=== PATIENT | female | born 1970 | race Caucasian/White ===

== ENCOUNTER 2016-11-11 12:05 | Emergency (ER) | payer BC ==
[~2016-11-11] VITALS: Ht 175.3 cm; Wt 142.8 kg
[~2016-11-11 12:05] MED LIST: ONDA4TAB7 SL
[2016-11-11 12:15] VITALS: TEMP 37; Ht 175.3 cm; Wt 142.8 kg
[2016-11-11] MEDS ORDERED: TRAM-10 PO (12:35)
[2016-11-11] MEDS ORDERED: PROCHLORPERAZINE 5 MG/ML 2 ML VIAL IV STA (13:20)
[2016-11-11] MEDS ORDERED: SODIUM CHLORIDE 0.9% 1000ML 1,000 ML IV STA (13:20)
[2016-11-11] MEDS ORDERED: KETOROLAC TROMETHAMINE 30 MG/ML VIAL IV STA (13:20)
[2016-11-11] MEDS ORDERED: DiphenhydrAMINE HCL 50 MG/ML VIAL IV STA (13:20)
[2016-11-11 13:38] LABS: BASO % 0.2 %; BASO ABS # 0.02 K/uL (0-0.2); EOS % 1.6 %; HEMATOCRIT 35.6 % (37-47); IG% 0.5 %; LYMPH % 19.5 %; LYMPH ABS # 2.53 K/uL (1.2-3.4); MEAN CELL VOLUME 69.5 fL (80-100); MEAN CORPUSCULAR HEMOGLOBIN 21.7 pg (25-34); MEAN CORPUSCULAR HGB CONC 31.2 g/dl (32-36); MEAN PLATELET VOLUME 11.1 fL (7.4-10.4); MONO % 4.2 %; PLATELET COUNT 494 K/uL (130-400); RED BLOOD COUNT 5.12 M/uL (4.2-5.4); WHITE BLOOD COUNT 12.97 K/uL (4.8-10.8)
[2016-11-11 13:47] LABS: BUN/CREATININE RATIO 13.3 (10-20); CREATININE 0.6 mg/dl (0.60-1.20); POTASSIUM 4.1 mmol/L (3.5-5.1)
[2016-11-11 14:03] LABS: ANISOCYTOSIS PRESENT; COMPLETE YES; HYPOCHROMIA PRESENT; MICROCYTOSIS PRESENT
--- NOTE | 2016-11-11 14:09 | DIAGNOSTIC IMAGING REPORT ---
HEAD WITHOUT CONTRAST (CT) CLINICAL HISTORY: 46 years-old Female with MCARTHUR. Acute headache without reported trauma. TECHNIQUE: Multiple axial CT images of the head were obtained without contrast. A dose lowering technique was utilized adhering to the principles of ALARA. CT DOSE: 788.63 mGycm COMPARISON: Brain MRI 06/21/2014. FINDINGS: No acute intracranial hemorrhage, midline shift, mass, large territorial ischemia or abnormal extra-axial collection. The calvarium is intact. The paranasal sinuses, mastoid air cells, and middle ear cavities are clear. IMPRESSION: No acute intracranial abnormality. The above report was generated using voice recognition software. It may contain grammatical, syntax or spelling errors. Electronically signed by: Vargas Cantrell M.D. 11/11/2016 2:08 PM Dictated Date/Time: 11/11/2016 2:06 PM
[2016-11-11] MEDS ORDERED: LORAZEPAM 0.5 MG TAB SL STA (15:26)
[2016-11-11] MEDS ORDERED: PRED50TA PO (16:41)
[2016-11-11 17:12] VITALS: BP 158/82; PULSE 78; O2SAT 98
--- NOTE | 2016-11-11 19:15 | EMERGENCY ROOM VISIT NOTE ---
History Report prepared by Yuly: Johnie Ziegler Under the Supervision of: Dr. Krishna Brewster D.O. First contact with patient: 13:07 Chief Complaint: HEADACHE Stated Complaint: TYPICAL MIGRAINE - REF BY DOCTOR History of Present Illness The patient is a 46 year old female with a history of migraines who presents to the Emergency Room with complaints of a persistent migraine that started 4 days ago. She says that she was visiting family when the pain came on, and it gradually got worse. She states that she has had migraines since she was a teenager, but this is an atypical migraine with odd symptoms that she doesn't normally have, including hearing abnormal noises, and numbness in her fingers bilaterally, feet bilaterally, and knees bilaterally. The patient notes that the tingling is mostly in her fingers, and includes her thumbs and does include the entire fingers circumferentially. She says that her numbness is on the front side of her knee and on the medial aspect of her foot. She states that it feels like "Novocaine". The patient adds that she has been having numbness in her cheeks and lips intermittently, and nothing makes it better or worse. She says that all the numbness started 2 days ago. She adds that she has been forgetting certain words, and has to think harder than she normally does, which is odd for her. The patient says that she has low back pain and neck pain, but that is typical with her migraines. She notes that she saw her primary care physician earlier today, and was sent here. She denies any weakness, fevers, shortness of breath, chest pain, nausea, vomiting, diarrhea, or urinary symptoms. Source of History: patient, family Onset: 4 days ago Position: head Symptom Intensity: not like typical migraine Timing: other (persistent) Associated Symptoms: + neck pain, + back pain (low), + numbness (in face, hands, knees, feet), No fevers, No chest pain, No SOB, No nausea, No vomiting, No diarrhea, No urinary symptoms, No weakness Note: Associated symptoms: Forgetting certain words, has to think harder than normally. Review of Systems See HPI for pertinent positives & negatives. A total of 10 systems reviewed and were otherwise negative. Past Medical & Surgical Medical Problems: (1) Asthma (2) Bronchitis (3) Migraines Family History Cancer Diabetes mellitus FH: cancer FH: gallbladder disease Heart disease Hypertension Social History Smoking Status: Former Smoker Alcohol Use: occasionally Marital Status: Housing Status: lives with family Occupation Status: unemployed Current/Historical Medications Scheduled Prednisone (Prednisone), 50 MG PO DAILY Scheduled PRN Tramadol (Ultram), 50 MG PO DAILY PRN for Pain Allergies Coded Allergies: Aspirin (Verified Allergy, Mild, TAKES MOTRIN AT HOME, 03/22/09) Adhesives (Verified Allergy, Unknown, BAND-AID, 02/05/06) Guaifenesin (Verified Allergy, Unknown, 03/22/09) Guanfacine (Verified Allergy, Unknown, Unknown., 09/09/12) Latex (Verified Allergy, Unknown, Hives., 09/09/12) Phenylephrine (Verified Allergy, Unknown, 03/22/09) Phenylpropanolamine (Verified Allergy, Unknown, 03/22/09) Vitamin A (Verified Allergy, Unknown, 03/22/09) Physical Exam Vital Signs Date Time Temp Pulse Resp B/P (MAP) Pulse Ox O2 Delivery O2 Flow Rate FiO2 11/11/16 17:12 78 18 158/82 98 11/11/16 16:09 77 18 165/84 98 Room Air 11/11/16 14:29 68 18 151/87 98 Room Air 11/11/16 13:03 77 11/11/16 12:15 37.0 82 16 182/84 98 Room Air Physical Exam GENERAL: obese, sitting up in bed, sunglasses in place, no acute distress, nontoxic EYE EXAM: normal conjunctiva, PERRL and EOM's intact OROPHARYNX: no exudate, no erythema, lips, buccal mucosa, and tongue normal and mucous membranes are moist HEAD: Acute reproducible tenderness over frontal sinuses and base of occiput. No nuchal rigidity NECK: supple, no nuchal rigidity, no adenopathy, non-tender LUNGS: Clear to auscultation. Normal chest wall mechanics HEART: no murmurs, S1 normal and S2 normal ABDOMEN: abdomen soft, non-tender, normo-active bowel sounds, no masses, no rebound or guarding. BACK: Back is symmetrical on inspection and there is no deformity, no midline tenderness, no CVA tenderness. SKIN: no rashes and no bruising UPPER EXTREMITIES: upper extremities are grossly normal. LOWER EXTREMITIES: No pitting edema. NEURO EXAM: Normal sensorium, cranial nerves II-XII intact, normal speech, no weakness of arms, no weakness of legs. No drift. Finger to nose intact. Gross sensation intact. Rapid alternating movements of the upper extremities intact. Medical Decision & Procedures ER Provider Diagnostic Interpretation: CT:Per my review, radiologist interpretation. HEAD WITHOUT CONTRAST (CT) CLINICAL HISTORY: 46 years-old Female with MCARTHUR. Acute headache without reported trauma. TECHNIQUE: Multiple axial CT images of the head were obtained without contrast. A dose lowering technique was utilized adhering to the principles of ALARA. CT DOSE: 788.63 mGycm COMPARISON: Brain MRI 06/21/2014. FINDINGS: No acute intracranial hemorrhage, midline shift, mass, large territorial ischemia or abnormal extra-axial collection. The calvarium is intact. The paranasal sinuses, mastoid air cells, and middle ear cavities are clear. IMPRESSION: No acute intracranial abnormality. The above report was generated using voice recognition software. It may contain grammatical, syntax or spelling errors. Electronically signed by: Vargas Cantrell M.D. 11/11/2016 2:08 PM Dictated Date/Time: 11/11/2016 2:06 PM Laboratory Results 11/11/16 12:55 Red Blood Count 5.12, Mean Corpuscular Volume 69.5, Mean Corpuscular Hemoglobin 21.7, Mean Corpuscular Hemoglobin Concent 31.2, Mean Platelet Volume 11.1, Neutrophils (%) (Auto) 74.0, Lymphocytes (%) (Auto) 19.5, Monocytes (%) (Auto) 4.2, Eosinophils (%) (Auto) 1.6, Basophils (%) (Auto) 0.2, Neutrophils # (Auto) 9.60, Lymphocytes # (Auto) 2.53, Monocytes # (Auto) 0.55, Eosinophils # (Auto) 0.21, Basophils # (Auto) 0.02 11/11/16 12:55 Test 11/11/16 12:55 White Blood Count 12.97 K/uL (4.8-10.8) Red Blood Count 5.12 M/uL (4.2-5.4) Hemoglobin 11.1 g/dL (12.0-16.0) Hematocrit 35.6 % (37-47) Mean Corpuscular Volume 69.5 fL (80-100) Mean Corpuscular Hemoglobin 21.7 pg (25-34) Mean Corpuscular Hemoglobin Concent 31.2 g/dl (32-36) Platelet Count 494 K/uL (130-400) Mean Platelet Volume 11.1 fL (7.4-10.4) Neutrophils (%) (Auto) 74.0 % Lymphocytes (%) (Auto) 19.5 % Monocytes (%) (Auto) 4.2 % Eosinophils (%) (Auto) 1.6 % Basophils (%) (Auto) 0.2 % Neutrophils # (Auto) 9.60 K/uL (1.4-6.5) Lymphocytes # (Auto) 2.53 K/uL (1.2-3.4) Monocytes # (Auto) 0.55 K/uL (0.11-0.59) Eosinophils # (Auto) 0.21 K/uL (0-0.5) Basophils # (Auto) 0.02 K/uL (0-0.2) RDW Standard Deviation 42.3 fL (36.4-46.3) RDW Coefficient of Variation 16.9 % (11.5-14.5) Immature Granulocyte % (Auto) 0.5 % Immature Granulocyte # (Auto) 0.06 K/uL (0.00-0.02) Hypochromasia PRESENT Anisocytosis PRESENT Microcytosis PRESENT Anion Gap 9.0 mmol/L (3-11) Est Creatinine Clear Calc Drug Dose 181.1 ml/min Estimated GFR () 127.6 Estimated GFR (Non- 110.1 BUN/Creatinine Ratio 13.3 (10-20) Calcium Level 9.0 mg/dl (8.5-10.1) Laboratory results per my review. Medications Administered Medications (Trade) Dose Ordered Sig/Yusef Route Start Time Stop Time Status Last Admin Dose Admin Sodium Chloride 1,000 ml @ 999 mls/hr Q1H1M STAT IV 11/11/16 13:20 11/11/16 14:20 DC 11/11/16 13:39 999 MLS/HR Ketorolac Tromethamine (Toradol Inj) 30 mg NOW STAT IV 11/11/16 13:20 11/11/16 13:22 DC 11/11/16 13:40 30 MG Diphenhydramine HCl (Benadryl Inj) 50 mg NOW STAT IV 11/11/16 13:20 11/11/16 13:22 DC 11/11/16 13:39 50 MG Prochlorperazine Edisylate (Compazine Inj) 10 mg NOW STAT IV 11/11/16 13:20 11/11/16 13:22 DC 11/11/16 13:39 10 MG Lorazepam (Ativan Tab) 0.5 mg NOW STAT SL 11/11/16 15:26 11/11/16 15:27 DC 11/11/16 15:36 0.5 MG ECG Indication: other (headache, numbness) Rate (beats per minute): 80 Rhythm: sinus rhythm Findings: no ectopy, other (normal axis) ED Course ED COURSE: Vital signs were reviewed and showed hypertensive vitals. The patients medical record was reviewed The above diagnostic studies were performed and reviewed. ED treatments and interventions as stated above. 1310: The patient was evaluated in room C11B. A complete history and physical examination was performed. 1320: Ordered Compazine Inj 10 mg IV, Benadryl Inj 50 mg IV, Toradol Inj 30 mg IV, NSS 1000 ml @ 999 mls/hr IV. 1526: Ordered Ativan Tab 0.5 mg SL. 1537: I reevaluated the patient and she is completely back to baseline. Her headache and paresthesias are gone. 1620: I reevaluated the patient and she refuses an MRI. 1628: I discussed the patient with Dr. Hare - [facility] neurology - she agrees with MRI but since the patient will not tolerate it, she recommended steroids and following-up as an outpatient. 1643: Upon reevaluation, the patient is resting.I discussed my findings with the patient and she understands and agrees with the treatment plan. Based on the patients age, coexisting illnesses, exam and lab findings the decision to treat as an outpatient was made. The patient remained stable while under my care. The patient appeared well at the time of discharge. Medical Decision Differential Diagnosis includes but is not limited to headache, tension headache , cluster headache, migraine, subarachnoid hemorrhage, meningitis, mass, central venous thrombus, concussion, trauma and epidural/subdural hemorrhage. Patient is a 46-year-old female with past medical history of migraines who presents to ER for headache which has been present for the past 5 days. She notes came on gradually and progressively worsened; not suggesting SAH. Vitals are unremarkable with the exception of mild hypertension. Afebrile. No signs meningitis or encephalitis. No nuchal rigidity. Patient does not take control. No clotting risk factors to suggest CVT. CT head was performed. Attempted MRI the patient declined. Patient was given Ativan without success. She was given Benadryl, Toradol and Compazine for her headache and she had complete resolution of all of her symptoms. She is completely neurologically intact initially on exam. I discussed the findings with neurology they recommended steroids and following up as an outpatient. I do not believe this to be a stroke as her symptoms are bilateral and the paresthesias include her bilateral kneecaps and the bilateral medial aspect of her feet. I do not believe that this can be explained by CVA. Favor MS is very unlikely. Headache is reproducible on palpation of her frontal sinuses and posterior occiput. Discussed with patient. Not to drive for the remainder of the night. Discussed with Pt concerning signs and symptoms to watch out for. Pt was instructed to follow up with their PCP and discussed with the patient their option to return to the ED at anytime for persistent or worsening symptoms. The appropriate anticipatory guidance and out-patient management, including indications for return to the emergency department, were explained at length to the patient and understood. Medication Reconcilliation Current Medication List: was personally reviewed by me Blood Pressure Screening Patient's blood pressure: Elevated blood pressure Blood pressure disposition: Elevated BP felt to be situational Consults Time Called: 1628 Consulting Physician: Dr. Payam Strong neurology Returned Call: [phone] I discussed the patient with Dr. Payam Strong neurology - she agrees with MRI but since the patient will not tolerate it, she recommended steroids and following-up as an outpatient. Impression Primary Impression: Headache Additional Impression: Facial paresthesia Scribe Attestation The scribe's documentation has been prepared under my direction and personally reviewed by me in its entirety. I confirm that the note above accurately reflects all work, treatment, procedures, and medical decision making performed by me. Departure Information Dispostion Home / Self-Care Prescriptions Prednisone (PREDNISONE) 50 Mg Tab 50 MG PO DAILY for 4 Days, TAB Prov: Krishna Brewster, 11/11/16 Referrals Desiree Beasley D.OAri (PCP) Patient Instructions Headache Pain, My [facility] Additional Instructions Please follow up with your primary care doctor or if you are a student, [facility] with in the next 24 hours. Any worsening of your symptoms, please return to the ED immediately. This includes any fevers greater than 100.4, worsening pain, chest pain, shortness breath, persistent nausea, vomiting, unable to eat or drink, or any other concerning signs or symptoms from your standpoint. You were given medications during this visit that will inhibit your ability to drive, operate machinery and work. Please do NOT drive, operate machinery, drink alcohol or work for the next 12hrs. You were found to have a blood pressure greater than 120 systolic over 90 diastolic. Due to the new Medicare guidelines, we are now recommending that you follow up with your primary care doctor in regards to this elevated blood pressure. Problem Qualifiers Primary Impression: Headache Headache type: unspecified Headache chronicity pattern: acute headache Intractability: not intractable Qualified Codes: R51 - Headache
== END 2016-11-11 17:13 | disposition home or self-care (01) ==
LOC: C.EDB 12:08 → C.EDC 17:13
DX: R51 Headache (principal); R20.9 Unspecified disturbances of skin sensation; J45.909 Unspecified asthma, uncomplicated; Z80.9 Family history of malignant neoplasm, unspecified; Z83.3 Family history of diabetes mellitus; Z83.79 Family history of other diseases of the digestive system; Z82.49 Family history of ischemic heart disease and other diseases of the circulatory system; Z87.891 Personal history of nicotine dependence

== ENCOUNTER 2019-03-19 19:53 | Observation (INO) ==
--- OUTSIDE RECORDS SUMMARY | 2019-03-19 19:56 | External Medical Summary | Continuity of Care Document ---
:1970 Author Name Gemini Odell Address Unavailable Unavailable , Care Team Providers Name Role Phone Purvi Redding M.D. Unavailable [email or web address] [email or web address], UNKNOWN Unavailable Unavailable Problems Active medical history not documented Allergies and Adverse Reactions Allergy history not documented Medications Medications not documented Procedures Procedures not documented Immunizations Immunizations not documented Plan of Treatment Planned Observations Planned Goals not documented Results No Known Results Results not documented
--- OUTSIDE RECORDS SUMMARY | 2019-03-19 19:56 | External Medical Summary | Continuity of Care Document ---
:1970 Author Name Gemini Odell Address Unavailable Unavailable , Care Team Providers Name Role Phone Purvi Redding M.D. Unavailable [email or web address] PCP, UNKNOWN Unavailable Unavailable Problems Active medical history not documented Allergies and Adverse Reactions Allergy history not documented Medications Medications not documented Procedures Procedures not documented Immunizations Immunizations not documented Plan of Treatment Planned Observations Planned Goals not documented Results No Known Results Results not documented
--- NOTE | 2019-03-19 20:54 | XRay Report ---
XR chest 1V portable HISTORY: Dyspnea COMPARISON: Chest CTA 03/27/2007. FINDINGS: The heart is mildly enlarged. No pleural effusions. No pneumothorax. Small linear density w ithin the periphery the left midlung zone favor scarring or atelectasis. Otherwise, lungs are clear. IMPRESSION: Mild cardiomegaly. ACT 112: Negative or not required by law. Electronically signed by: Jordan Ramírez M.D. 03/19/2019 8:53 PM
[2019-03-19 20:57] LABS: Basophils # (auto) 0.03 K/uL (0-0.2); Basophils % (auto) 0.2 %; Eosinophils # (auto) 0.29 K/uL (0-0.5); Hematocrit (blood only) 39.6 % (37-47); Hemoglobin 13.3 g/dL (12.0-16.0); Immature Granulocytes # (auto) 0.04 K/uL (0.00-0.02); Immature Granulocytes % (auto) 0.3 %; Lymphocytes # (auto) 3.51 K/uL (1.2-3.4); Lymphocytes % (auto) 23.8 %; Mean Corpuscular Hemoglobin 27.4 pg (25-34); Mean Corpuscular Hgb Conc 33.6 g/dL (32-36); Mean Corpuscular Volume 81.6 fL (80-100); Mean Platelet Volume 11.6 fL (7.4-10.4); Monocytes # (auto) 0.81 K/uL (0.11-0.59); Monocytes % (auto) 5.5 %; Neutrophils # (auto) 10.04 K/uL (1.4-6.5); Neutrophils % (auto) 68.2 %; Platelet Count 430 K/uL (130-400); RDW Coefficient of Variation 14.8 % (11.5-14.5); RDW Standard Deviation 43.8 fL (36.4-46.3); Red Blood Count 4.85 M/uL (4.2-5.4); White Blood Count 14.72 K/uL (4.8-10.8)
[2019-03-19 21:08] LABS: D Dimer 500 ug/L FEU (0-500); Partial Thromboplastin Time 27.6 Seconds (21.0-31.0); Prothrombin Time 10.3 Seconds (9.0-12.0)
[2019-03-19 21:24] LABS: Alanine Aminotransferase 18 U/L (12-78); Albumin Level 3.6 gm/dl (3.4-5.0); Aspartate Aminotransferase 8 U/L (15-37); BUN Creatinine Ratio 22.6 (10-20); Blood Urea Nitrogen 14 mg/dl (7-18); Calcium 9.3 mg/dl (8.5-10.1); Carbon Dioxide 28 mmol/L (21-32); Chloride 103 mmol/L (98-107); Creatinine Clr Calc Pharmacy 184.2 ml/min; Est GFR (African American) 125.1; Glucose 108 mg/dl (70-99); Magnesium 1.9 mg/dl (1.8-2.4); Sodium 138 mmol/L (136-145)
[2019-03-19 21:28] LABS: Albumin Globulin Ratio 0.8 (0.9-2); Alkaline Phosphatase 80 U/L (45-117); Bilirubin,Total 0.2 mg/dl (0.2-1); Globulin 4.6 gm/dl (2.5-4.0); Total Protein 8.2 gm/dl (6.4-8.2); Troponin I < 0.015 ng/ml (0-0.045)
[2019-03-19] MEDS ORDERED: OPTIRAY 320 125ml IV PRN (21:57)
--- NOTE | 2019-03-19 22:09 | CT Scan Report ---
CHEST CTA for PULMONARY ARTERIES CT DOSE: 864.07 mGy.cm HISTORY: Dyspnea/left chest pain eval for PE TECHNIQUE: Multiaxial CT images of the chest were performed following the intravenous administration of contrast to evaluate the pulmonary arteries. Maximal intensity projection images were also obtaine d. A dose lowering technique was utilized adhering to the principles of ALARA. COMPARISON STUDY: Chest CTA 03/27/2007. FINDINGS: There is a normal caliber thoracic aorta with no evidence for dissection. There is no evide nce for pulmonary embolus. No pleural effusions. No pneumothorax. The liver and spleen are unremarkab le. No mediastinal or hilar lymphadenopathy. The central airways are patent. Linear densities within the lingula and right middle lobe consistent with subsegmental atelectasis. Otherwise, lungs are luigi r. IMPRESSION: No evidence for pulmonary embolus. ACT 112: Negative or not required by law. Electronically signed by: Jordan Ramírez M.D. 03/19/2019 10:08 PM
[2019-03-19] MEDS ORDERED: ALBUT/IPRATROP 3MG/0.5MG NEB 3 ML VIAL NEB STA (22:32)
[2019-03-19 22:47] LABS: Appearance Urine Clear (Clear); Bilirubin Urine Negative (Negative); Blood Urine Negative (Negative); Color Urine Yellow; Glucose Urine UA Negative (Negative); Ketones Urine Negative (Negative); Leukocyte Esterase Urine Negative (Negative); Nitrite Urine Negative (Negative); Protein Urine Negative (Negative); Specific Gravity Urine 1.022 (1.000-1.030); Urobilinogen Urine Negative (Negative)
[2019-03-19] MEDS ORDERED: LOSARTAN POTASSIUM 25 MG TAB PO STA (23:16)
--- NOTE | 2019-03-19 23:16 | History & Physical Report ---
Date of Service March 19, 2019 Assessment & Plan (1) Left-sided chest pain: Uncontrolled BP vs intra-abdominal given LUQ tenderness Rule out ACS mood disorder, at baseline prediabetes, outpatient hemoglobin A1c of 6.18 February 2019 chronic iron deficiency anemia related to menorrhagia as per records, hemoglobin currently within normal limits ROGE as per records. Not on CPAP as per patient preference Past tobacco abuse OBS PCU CT abdomen pelvis Follow troponin Titrate home Losartan Cardiology consult if CT abdomen pelvis negative for pathology that may explain chest pain Aspirin for CAD prevention until ACS ruled out DVT prophylaxis. Lovenox subcu if no bleeding on CT Full code History of Present Illness Chief Complaint: Chest pain Primary Care Provider: Matilde Mao, History obtained from patient, family, and records. Medical history significant for hypertension, mood disorder, prediabetes, chronic iron deficiency anemia related to menorrhagia as per records, ROGE as per records, past tobacco abuse. Patient was having [employer] meeting today when she noted left-sided lower chest ("at the diaphragm level" as per patient) going to her left arm with shortness of breath. Different from reflux as per patient. Has had episodes in the past related to her being anemic from her heavy menstrual bleeding. Menstrual bleeding actually less all be extended since IUD placement. No cough symptoms. No relief with breathing treatment given at the ER. SBP 150-190s at the ER. Patient does not check blood pressure at home. Patient compliant with home medications. Denies dietary indiscretion. Denies unusual stress. Denies OTC NSAID intake. History of ROGE, patient not interested in CPAP as of outpatient 2012 Sleep Medicine notes. Medical History as above TTE 2019 EF 55 to 59%, no significant valvular disease Surgical History : Breast reduction, gynecologic procedures Family History : Heart disease, diabetes, breast cancer, asthma Personal/Social history : Past tobacco abuse, occasional EtOH intake, homemaker Allergies Allergy/AdvReac Type Severity Reaction Status Date / Time guaifenesin [From Entex LA] Allergy Severe Anaphylaxis Verified 03/19/19 21:04 phenylephrine [From Entex LA] Allergy Severe Anaphylaxis Verified 03/19/19 21:04 phenylpropanolamine Allergy Severe Anaphylaxis Verified 03/19/19 21:04 [From Entex LA] latex Allergy Intermediate Hives. Verified 03/19/19 21:04 adhesive Allergy Mild BAND-AID-HI Verified 03/19/19 21:04 VES aspirin Allergy Mild TAKES Verified 03/19/19 21:04 MOTRIN AT HOME Home Medications Home Medications Medication Instructions Recorded Confirmed Type albuterol sulfate 2 puff INHALATION DIRECTED PRN 03/19/19 03/19/19 History escitalopram oxalate 20 mg PO DAILY 03/19/19 03/19/19 History losartan 25 mg PO DAILY 03/19/19 03/19/19 History meloxicam 0 mg PO DAILY 03/19/19 03/19/19 History Past Med/Surg History Medical History Asthma (Resolved) Facial paresthesia (Acute) Headache (Acute) Migraines (Chronic) Social History Preferred Language: Swiss Communication Ability: Effective 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: No Beliefs That Will Affect Care: None Current Living Situation: Family Other Information That Helps Us Care for You: No Feels Safe at Home: Yes Safety Concerns: Feels Safe At This Time Smoking Status: Never smoker Do You Dip or Chew Tobacco: No ; Second Hand Exposure: No ; Tobacco Cessation Education Requested by Patient: No Hx Alcohol Use: No Hx Substance Use: No Review of Systems Review of Systems: As per HPI, all 10 systems reviewed, all other ROS negative Physical Exam Physical Exam: GENERAL: Comfortable, slightly anxious, obese, looks older than stated age, no respiratory distress SKIN: Normal color, warm HEENT: Bespectacled, [place] palpebral conjunctivae, no ptosis, dry buccal mucosa NECK : Supple, short neck, no tenderness CHEST : Decreased breath sounds , no tenderness HEART : RRR, no obvious murmurs ABDOMEN: Some distention, left upper quadrant tenderness EXTREMITIES : Minimal LE swelling, no LE tenderness, no other conspicuous deformities noted NEUROLOGIC : Coherent, no facial asymmetry, no other gross focality Results & Data Vital Signs (Past 12 Hours) Vital Signs Temp Pulse Pulse Resp BP Pulse Ox 03/19/19 22:45 78 16 99 03/19/19 21:30 76 18 98 03/19/19 21:17 78 30 H 97 03/19/19 21:01 73 24 97 03/19/19 19:57 36.3 C L 80 24 155/86 H 98 Laboratory Results Laboratory Results WBC 14.72 K/uL (4.8-10.8) H 03/19/19 20:45 RBC 4.85 M/uL (4.2-5.4) 03/19/19 20:45 Hgb 13.3 g/dL (12.0-16.0) 03/19/19 20:45 Hct 39.6 % (37-47) 03/19/19 20:45 MCV 81.6 fL (80-100) 03/19/19 20:45 MCH 27.4 pg (25-34) 03/19/19 20:45 MCHC 33.6 g/dL (32-36) 03/19/19 20:45 RDW Std Deviation 43.8 fL (36.4-46.3) 03/19/19 20:45 RDW Coeff of Nitin 14.8 % (11.5-14.5) H 03/19/19 20:45 Plt Count 430 K/uL (130-400) H 03/19/19 20:45 MPV 11.6 fL (7.4-10.4) H 03/19/19 20:45 Immature Gran % (Auto) 0.3 % 03/19/19 20:45 Neut % (Auto) 68.2 % 03/19/19 20:45 Lymph % (Auto) 23.8 % 03/19/19 20:45 [place] % (Auto) 5.5 % 03/19/19 20:45 Eos % (Auto) 2.0 % 03/19/19 20:45 Baso % (Auto) 0.2 % 03/19/19 20:45 Immature Gran # (Auto) 0.04 K/uL (0.00-0.02) H 03/19/19 20:45 Neut # (Auto) 10.04 K/uL (1.4-6.5) H 03/19/19 20:45 Lymph # (Auto) 3.51 K/uL (1.2-3.4) H 03/19/19 20:45 [place] # (Auto) 0.81 K/uL (0.11-0.59) H 03/19/19 20:45 Eos # (Auto) 0.29 K/uL (0-0.5) 03/19/19 20:45 Baso # (Auto) 0.03 K/uL (0-0.2) 03/19/19 20:45 PT 10.3 Seconds (9.0-12.0) 03/19/19 20:45 INR 1.0 (0.9-1.1) 03/19/19 20:45 APTT 27.6 Seconds (21.0-31.0) 03/19/19 20:45 PTT Ratio 1.0 03/19/19 20:45 D-Dimer 500 ug/L FEU (0-500) 03/19/19 20:45 Sodium 138 mmol/L (136-145) 03/19/19 20:45 Potassium 4.0 mmol/L (3.5-5.1) 03/19/19 20:45 Chloride 103 mmol/L (98-107) 03/19/19 20:45 Carbon Dioxide 28 mmol/L (21-32) 03/19/19 20:45 Anion Gap 7.0 (3-11) 03/19/19 20:45 BUN 14 mg/dl (7-18) 03/19/19 20:45 Creatinine 0.61 mg/dl (0.6-1.2) 03/19/19 20:45 Est Cr Clr Drug Dosing 184.2 ml/min 03/19/19 20:45 Est GFR ( Amer) 125.1 03/19/19 20:45 Est GFR (Non-Af Amer) 108.0 03/19/19 20:45 BUN/Creatinine Ratio 22.6 (10-20) H 03/19/19 20:45 Glucose 108 mg/dl (70-99) H 03/19/19 20:45 Calcium 9.3 mg/dl (8.5-10.1) 03/19/19 20:45 Magnesium 1.9 mg/dl (1.8-2.4) 03/19/19 20:45 Total Bilirubin 0.2 mg/dl (0.2-1) 03/19/19 20:45 AST 8 U/L (15-37) L 03/19/19 20:45 ALT 18 U/L (12-78) 03/19/19 20:45 Alkaline Phosphatase 80 U/L (45-117) 03/19/19 20:45 Troponin I < 0.015 ng/ml (0-0.045) 03/19/19 20:45 Total Protein 8.2 gm/dl (6.4-8.2) 03/19/19 20:45 Albumin 3.6 gm/dl (3.4-5.0) 03/19/19 20:45 Globulin 4.6 gm/dl (2.5-4.0) H 03/19/19 20:45 Albumin/Globulin Ratio 0.8 (0.9-2) L 03/19/19 20:45 Urine Color Yellow 03/19/19 22:05 Urine Appearance Clear (Clear) 03/19/19 22:05 Urine pH 7.0 (4.5-7.5) 03/19/19 22:05 Ur Specific [place] 1.022 (1.000-1.030) 03/19/19 22:05 Urine Protein Negative (Negative) 03/19/19 22:05 Urine Glucose (UA) Negative (Negative) 03/19/19 22:05 Urine Ketones Negative (Negative) 03/19/19 22:05 Urine Blood Negative (Negative) 03/19/19 22:05 Urine Nitrite Negative (Negative) 03/19/19 22:05 Urine Bilirubin Negative (Negative) 03/19/19 22:05 Urine Urobilinogen Negative (Negative) 03/19/19 22:05 Ur Leukocyte Esterase Negative (Negative) 03/19/19 22:[address] chest: No evidence of pulmonary embolism EKG as per my interpretation rate 80, NSR, normal axis, T wave inversion inferior leads
[2019-03-19] MEDS ORDERED: TRAMADOL HCL 50 MG TABLET PO STA (23:19)
[2019-03-19 23:31] LABS: Lipase 101 U/L (73-393)
[2019-03-20] MEDS ORDERED: LORazepam 0.5 MG/1 ML VIAL IV PRN (00:28)
[2019-03-20] MEDS ORDERED: ACETAMINOPHEN 325 MG TAB PO PRN (00:28)
[2019-03-20] MEDS ORDERED: NITROGLYCERIN SL 0.4 MG/TAB TAB SL PRN (00:28)
[2019-03-20] MEDS ORDERED: PROMETHAZINE HCL 12.5 MG in SODIUM CHLORIDE 0.9% 50 ML IV PRN (00:28)
[2019-03-20] MEDS ORDERED: MoRPHine SULFATE 4 MG/ML 1 ML CARP\\VIAL IV PRN (00:28)
[2019-03-20] MEDS: SODIUM CHLORIDE 0.9% 1000ML 1,000 ML IV SCH (00:30)
--- NOTE | 2019-03-20 00:45 | Emergency Department Note ---
Entered by Sagrario Beltrán acting as a scribe for History of Present Illness General Chief complaint: Shortness of Breath/Dyspnea Stated complaint: SOB Time Seen by Provider: 03/19/19 20:16 History of Present Illness Provider complaint: shortness of breath Onset (ago): day(s) 3 Pain Consistency: + other (worsening) Maximum Pain Intensity: 3 Quality: + other (shortness of breath) Exacerbated By: + other (when on her menstrual period) Associated symptoms: + denies other symptoms (rectal bleeding, history of blood clots), + chest pain (starting 3 days ago) and + other (iron transfusion in September, recent blood work was normal, vaginal bleeding 2 weeks, possible recent weight gain); no cough and no fever/chills The patient is a 48 year old female who presents to the ED with complaints of worsening shortness of breath that started 3 days ago. The patient states that she has been struggling with dyspnea intermittently ever since last September when she got an iron transfusion. Her doctor attributed her dyspnea to anemia and iron deficiency. The patient states that she has also had left sided chest pain starting 3 days ago. The patient notes that she had blood work done recently to check her hemoglobin and ferritin levels and they were all within normal limits. The patient notes that she has had vaginal bleeding for the past 2 weeks. The patient notes that her shortness of breath is typically worse when she is on her menstrual period. The patient states that she got an IUD to help with the heavy bleeding. The patient denies rectal bleeding, fever, cough, and a history of blood clots. The patient notes that her father had a blood clot but she does not believe that it is genetic. The patient states that she may have gained weight recently but she is not completely sure. Home Medications Home Medications Medication Instructions Recorded Confirmed Type albuterol sulfate 2 puff INHALATION DIRECTED PRN 03/19/19 03/19/19 History escitalopram oxalate 20 mg PO DAILY 03/19/19 03/19/19 History losartan 25 mg PO DAILY 03/19/19 03/19/19 History meloxicam 0 mg PO DAILY 03/19/19 03/19/19 History Allergies Allergy/AdvReac Type Severity Reaction Status Date / Time guaifenesin [From Entex LA] Allergy Severe Anaphylaxis Verified 03/19/19 21:04 phenylephrine [From Entex LA] Allergy Severe Anaphylaxis Verified 03/19/19 21:04 phenylpropanolamine Allergy Severe Anaphylaxis Verified 03/19/19 21:04 [From Entex LA] latex Allergy Intermediate Hives. Verified 03/19/19 21:04 adhesive Allergy Mild BAND-AID-HI Verified 03/19/19 21:04 VES aspirin Allergy Mild TAKES Verified 03/19/19 21:04 MOTRIN AT HOME Past Med/Surg History Medical History Asthma (Resolved) Facial paresthesia (Acute) Headache (Acute) Migraines (Chronic) Social History Feels Safe at Home: Yes Smoking Status: Never smoker Review of Systems See HPI for pertinent positives & negatives. and A total of 10 systems reviewed and were otherwise negative Physical Exam Vital Signs Vital Signs - 24 hr 03/19/19 19:57 03/19/19 20:40 03/19/19 21:01 Temperature 36.3 C L Temperature Source Oral Pulse Rate 80 73 Pulse Rate [Right Finger] Pulse Rate from SpO2 Sensor 74 Respiratory Rate 24 24 Respiratory Effort / Characteristics Blood Pressure 155/86 H Blood Pressure Mean 109 Pulse Oximetry 98 97 Oxygen Delivery Method Room Air Room Air Room Air Sepsis Recent Fever Within 48 Hours No Sepsis Action Taken by Nursing No Action Required 03/19/19 21:17 03/19/19 21:30 03/19/19 22:05 Temperature Temperature Source Pulse Rate 78 76 77 Pulse Rate [Right Finger] Pulse Rate from SpO2 Sensor 78 75 77 Respiratory Rate 30 H 18 8 L Respiratory Effort / Characteristics Blood Pressure 179/83 H Blood Pressure Mean 110 Pulse Oximetry 97 98 98 Oxygen Delivery Method Room Air Room Air Sepsis Recent Fever Within 48 Hours Sepsis Action Taken by Nursing 03/19/19 22:06 03/19/19 22:30 03/19/19 22:31 Temperature Temperature Source Pulse Rate 81 83 82 Pulse Rate [Right Finger] Pulse Rate from SpO2 Sensor 81 83 81 Respiratory Rate 21 24 15 Respiratory Effort / Characteristics Blood Pressure 160/112 H Blood Pressure Mean 124 Pulse Oximetry 98 99 99 Oxygen Delivery Method Sepsis Recent Fever Within 48 Hours Sepsis Action Taken by Nursing 03/19/19 22:45 03/19/19 23:00 03/19/19 23:01 Temperature Temperature Source Pulse Rate 81 80 Pulse Rate [Right Finger] 78 Pulse Rate from SpO2 Sensor 82 81 Respiratory Rate 16 Respiratory Effort / Characteristics Non-Labored Blood Pressure 185/120 H Blood Pressure Mean 143 Pulse Oximetry 99 100 99 Oxygen Delivery Method Room Air Sepsis Recent Fever Within 48 Hours Sepsis Action Taken by Nursing 03/19/19 23:04 03/19/19 23:09 Temperature Temperature Source Pulse Rate 82 84 Pulse Rate [Right Finger] Pulse Rate from SpO2 Sensor 81 83 Respiratory Rate Respiratory Effort / Characteristics Blood Pressure 193/97 H 198/92 H Blood Pressure Mean 150 124 Pulse Oximetry 98 96 Oxygen Delivery Method Sepsis Recent Fever Within 48 Hours Sepsis Action Taken by Nursing Constitutional: Vital signs reviewed. Eyes: Pupils are equal round reactive to light. Conjunctiva are noninjected. ENT: Pharynx is clear without erythema or exudate. Mucous membranes are moist. Neck supple without meningeal signs. Respiratory: Clear to auscultation bilaterally. Breath sounds are equal bilaterally. Unable to speak in full sentences. Cardiovascular: Regular rate and rhythm. No rubs or gallops. GI: Mild LUQ tenderness. Soft and nondistended. Bowel sounds are present. Musculoskeletal: No peripheral edema. No lower extremity tenderness. Integumentary: No cyanosis. Neurological: The patient is awake and alert. No focal deficits. Psychiatric: Normal affect. Course Course 2018: Past medical records reviewed. The patient was evaluated in room C07. A complete history and physical exam was performed. 2229: I updated the patient on the test results. I recommended hospitalization and she verbally agrees and understands. 2234: I discussed the patient's case with Dr. Dalton Strong, Hospitalist. He will evaluate the patient for further management. Consultations Consultation #1: I discussed the patient's case with Dr. Dalton Strong [facility]. He will evaluate the patient for further management. Time: 22:34 Administered Medications Discontinued Medications Albuterol (Duoneb) 3 ml NEB NOW STA Stop: 03/19/19 22:33 Last Admin: 03/19/19 22:44 Dose: 3 ml Documented by: [id number] Ioversol (Optiray 320 125ml) 118 ml IV ONCE PRN PRN Reason: Interaction Checking Stop: 03/23/19 21:56 Last Admin: 03/19/19 21:57 Dose: 118 ml Documented by: [id number] Losartan Potassium (Cozaar) 25 mg PO NOW STA Stop: 03/19/19 23:17 Last Admin: 03/20/19 00:04 Dose: 25 mg Documented by: [id number] Tramadol HCl (Ultram) 25 mg PO NOW STA Stop: 03/19/19 23:20 Last Admin: 03/20/19 00:04 Dose: 25 mg Documented by: [id number] Medical Decision Making Differential Diagnosis Differentials include unstable angina, UT, PE, pleurisy, pneumonia. Medical Records Attestation: I reviewed the patient's medical records. I did perform a limited focused review of portions of the patient's old chart on the electronic medical record. The patient has had no recent pertinent visits to this hospital. Home Medications Current Medication List: was personally reviewed by me Laboratory Data Attestation: I reviewed the patient's lab results. Result diagrams: 03/19/19 20:45 03/19/19 20:45 Lab Results 03/19/19 03/19/19 03/19/19 Range/Units 20:45 20:45 20:45 WBC 14.72 H (4.8-10.8) K/uL RBC 4.85 (4.2-5.4) M/uL Hgb 13.3 (12.0-16.0) g/dL Hct 39.6 (37-47) % MCV 81.6 (80-100) fL MCH 27.4 (25-34) pg MCHC 33.6 (32-36) g/dL RDW Std Deviation 43.8 (36.4-46.3) fL RDW Coeff of Nitin 14.8 H (11.5-14.5) % Plt Count 430 H (130-400) K/uL MPV 11.6 H (7.4-10.4) fL Immature Gran % (Auto) 0.3 % Neut % (Auto) 68.2 % Lymph % (Auto) 23.8 % [place] % (Auto) 5.5 % Eos % (Auto) 2.0 % Baso % (Auto) 0.2 % Immature Gran # (Auto) 0.04 H (0.00-0.02) K/uL Neut # (Auto) 10.04 H (1.4-6.5) K/uL Lymph # (Auto) 3.51 H (1.2-3.4) K/uL [place] # (Auto) 0.81 H (0.11-0.59) K/uL Eos # (Auto) 0.29 (0-0.5) K/uL Baso # (Auto) 0.03 (0-0.2) K/uL PT 10.3 (9.0-12.0) Seconds INR 1.0 (0.9-1.1) APTT 27.6 (21.0-31.0) Seconds PTT Ratio 1.0 D-Dimer 500 (0-500) ug/L FEU Sodium 138 (136-145) mmol/L Potassium 4.0 (3.5-5.1) mmol/L Chloride 103 (98-107) mmol/L Carbon Dioxide 28 (21-32) mmol/L Anion Gap 7.0 (3-11) BUN 14 (7-18) mg/dl Creatinine 0.61 (0.6-1.2) mg/dl Est Cr Clr Drug Dosing 184.2 ml/min Est GFR ( Amer) 125.1 Est GFR (Non-Af Amer) 108.0 BUN/Creatinine Ratio 22.6 H (10-20) Glucose 108 H (70-99) mg/dl Calcium 9.3 (8.5-10.1) mg/dl Magnesium 1.9 (1.8-2.4) mg/dl Total Bilirubin 0.2 (0.2-1) mg/dl AST 8 L (15-37) U/L ALT 18 (12-78) U/L Alkaline Phosphatase 80 (45-117) U/L Troponin I < 0.015 (0-0.045) ng/ml Total Protein 8.2 (6.4-8.2) gm/dl Albumin 3.6 (3.4-5.0) gm/dl Globulin 4.6 H (2.5-4.0) gm/dl Albumin/Globulin Ratio 0.8 L (0.9-2) Lipase 101 (73-393) U/L Urine Color Urine Appearance (Clear) Urine pH (4.5-7.5) Ur Specific [place] (1.000-1.030) Urine Protein (Negative) Urine Glucose (UA) (Negative) Urine Ketones (Negative) Urine Blood (Negative) Urine Nitrite (Negative) Urine Bilirubin (Negative) Urine Urobilinogen (Negative) Ur Leukocyte Esterase (Negative) 03/19/19 Range/Units 22:05 WBC (4.8-10.8) K/uL RBC (4.2-5.4) M/uL Hgb (12.0-16.0) g/dL Hct (37-47) % MCV (80-100) fL MCH (25-34) pg MCHC (32-36) g/dL RDW Std Deviation (36.4-46.3) fL RDW Coeff of Nitin (11.5-14.5) % Plt Count (130-400) K/uL MPV (7.4-10.4) fL Immature Gran % (Auto) % Neut % (Auto) % Lymph % (Auto) % [place] % (Auto) % Eos % (Auto) % Baso % (Auto) % Immature Gran # (Auto) (0.00-0.02) K/uL Neut # (Auto) (1.4-6.5) K/uL Lymph # (Auto) (1.2-3.4) K/uL [place] # (Auto) (0.11-0.59) K/uL Eos # (Auto) (0-0.5) K/uL Baso # (Auto) (0-0.2) K/uL PT (9.0-12.0) Seconds INR (0.9-1.1) APTT (21.0-31.0) Seconds PTT Ratio D-Dimer (0-500) ug/L FEU Sodium (136-145) mmol/L Potassium (3.5-5.1) mmol/L Chloride (98-107) mmol/L Carbon Dioxide (21-32) mmol/L Anion Gap (3-11) BUN (7-18) mg/dl Creatinine (0.6-1.2) mg/dl Est Cr Clr Drug Dosing ml/min Est GFR ( Amer) Est GFR (Non-Af Amer) BUN/Creatinine Ratio (10-20) Glucose (70-99) mg/dl Calcium (8.5-10.1) mg/dl Magnesium (1.8-2.4) mg/dl Total Bilirubin (0.2-1) mg/dl AST (15-37) U/L ALT (12-78) U/L Alkaline Phosphatase (45-117) U/L Troponin I (0-0.045) ng/ml Total Protein (6.4-8.2) gm/dl Albumin (3.4-5.0) gm/dl Globulin (2.5-4.0) gm/dl Albumin/Globulin Ratio (0.9-2) Lipase (73-393) U/L Urine Color Yellow Urine Appearance Clear (Clear) Urine pH 7.0 (4.5-7.5) Ur Specific [place] 1.022 (1.000-1.030) Urine Protein Negative (Negative) Urine Glucose (UA) Negative (Negative) Urine Ketones Negative (Negative) Urine Blood Negative (Negative) Urine Nitrite Negative (Negative) Urine Bilirubin Negative (Negative) Urine Urobilinogen Negative (Negative) Ur Leukocyte Esterase Negative (Negative) Imaging Data Radiologist's Impression: Radiology results as stated below per my review and the radiologist's interpretation: XR chest 1V portable HISTORY: Dyspnea COMPARISON: Chest CTA 03/27/2007. FINDINGS: The heart is mildly enlarged. No pleural effusions. No pneumothorax. Small linear density within the periphery the left midlung zone favor scarring or atelectasis. Otherwise, lungs are clear. IMPRESSION: Mild cardiomegaly. ACT 112: Negative or not required by law. Electronically signed by: Jordan Ramírez M.D. 03/19/2019 8:53 PM CHEST CTA for PULMONARY ARTERIES CT DOSE: 864.07 mGy.cm HISTORY: Dyspnea/left chest pain eval for PE TECHNIQUE: Multiaxial CT images of the chest were performed following the intravenous administration of contrast to evaluate the pulmonary arteries. Maximal intensity projection images were also obtained. A dose lowering technique was utilized adhering to the principles of ALARA. COMPARISON STUDY: Chest CTA 03/27/2007. FINDINGS: There is a normal caliber thoracic aorta with no evidence for dissection. There is no evidence for pulmonary embolus. No pleural effusions. No pneumothorax. The liver and spleen are unremarkable. No mediastinal or hilar lymphadenopathy. The central airways are patent. Linear densities within the lingula and right middle lobe consistent with subsegmental atelectasis. Otherwise, lungs are clear. IMPRESSION: No evidence for pulmonary embolus. ACT 112: Negative or not required by law. Electronically signed by: Jordan Ramírez M.D. 03/19/2019 10:08 PM ECG Data Attestation: I personally reviewed and interpreted this ECG as follows: Indication: + chest pain Rate (beats per minute): 79 Rhythm: + normal sinus ECG Intervals/blocks: + Normal QRS ECG ST segments: no ST elevation ECG Findings: no PVCs Blood Pressure Blood Pressure Findings: Elevated blood pressure Blood Pressure Disposition: further management by hospitalist ABBEY Davalos I did evaluate the patient as noted above. The patient is presenting with severe dyspnea and chest pain for the past 3 days. The patient has had dyspnea since September of last year and was told by her doctor that this was due to anemia or iron deficiency. 3 days ago her symptoms worsen then she developed chest pain which is new. She states that she recently had blood work checked and her hemoglobin was normal. On exam here she is having difficulty speaking in full sentences. She has to intermittently take very deep breaths although her O2 saturation is 100% on room air. IV access was established. The patient was placed on a continuous blending supervisor. I did order and personally review the patient's 12-lead EKG as described above. She has no acute ischemia on her twelve-lead EKG. I did order and personally reviewed the images of the juvencio nt's chest x-ray as described above. She has cardiomegaly without infiltrate. I did order and review the patient's blood work as noted in the electronic medical record. She is not anemic. Her white count is slightly elevated. Troponin is negative. D-dimer is 500. Electrolytes are unremarkable. After discussion with the patient, I did order a CT angiogram of the chest. I did review the images myself as well as the radiology report as described above. She does not have any pulmonary embolism or acute abnormality or infiltrate. I did discuss the test results with the patient. I did recommend hospitalization given the severity of her dyspnea. While she was not wheezing I did treat her with a DuoNeb here. I did discuss the case with the hospitalist and case specialist. Impression & Plan Dyspnea, Left-sided chest pain Discharge Plan Visit Data *Final* Discharge Date/Time: 03/20/19 00:12 Chief Complaint: Shortness of Breath/Dyspnea Stated Complaint: SOB ED Provider: Homar Duong Discharge Problem: Dyspnea, Left-sided chest pain Patient Disposition: Admitted As Inpatient Discharge Instructions Interventions: ED Discharge Assessment Last Done: 03/20/19 00:12 Discharge Problem: Dyspnea Qualifiers: Dyspnea type: acute respiratory distress Qualified Code(s): R06.03 - Acute respiratory distress The scribe's documentation has been prepared under my direction and personally reviewed by me in its entirety. I confirm that the note above accurately reflects all work, treatment, procedures, and medical decision making performed by me.
[2019-03-20 00:49] LABS: Pregnancy Test, Urine Negative (Negative)
[2019-03-20] MEDS: ASPIRIN 81 MG ECTAB PO SCH (04:03)
[2019-03-20 06:26] LABS: Basophils # (auto) 0.02 K/uL (0-0.2); Basophils % (auto) 0.2 %; Eosinophils # (auto) 0.28 K/uL (0-0.5); Eosinophils % (auto) 2.2 %; Hematocrit (blood only) 38.6 % (37-47); Hemoglobin 12.5 g/dL (12.0-16.0); Immature Granulocytes # (auto) 0.05 K/uL (0.00-0.02); Immature Granulocytes % (auto) 0.4 %; Lymphocytes # (auto) 2.89 K/uL (1.2-3.4); Lymphocytes % (auto) 22.5 %; Mean Corpuscular Hemoglobin 26.5 pg (25-34); Mean Corpuscular Hgb Conc 32.4 g/dL (32-36); Mean Corpuscular Volume 81.8 fL (80-100); Mean Platelet Volume 11.6 fL (7.4-10.4); Monocytes # (auto) 0.77 K/uL (0.11-0.59); Neutrophils # (auto) 8.82 K/uL (1.4-6.5); Neutrophils % (auto) 68.7 %; Platelet Count 340 K/uL (130-400); RDW Coefficient of Variation 14.9 % (11.5-14.5); Red Blood Count 4.72 M/uL (4.2-5.4); White Blood Count 12.83 K/uL (4.8-10.8)
[2019-03-20 06:35] LABS: Partial Thromboplastin Time 27.7 Seconds (21.0-31.0)
[2019-03-20 06:51] LABS: BUN Creatinine Ratio 18.5 (10-20); Blood Urea Nitrogen 12 mg/dl (7-18); Calcium 8.6 mg/dl (8.5-10.1); Carbon Dioxide 28 mmol/L (21-32); Chloride 105 mmol/L (98-107); Cholesterol 180 mg/dl (0-200); Creatinine Clr Calc Pharmacy 172.3 ml/min; Est GFR (African American) 122.5; Est GFR (Non-African American) 105.7; Glucose 135 mg/dl (70-99); Potassium 3.7 mmol/L (3.5-5.1); Sodium 138 mmol/L (136-145)
[2019-03-20 06:56] LABS: Chol HDL Ratio 5; HDL Cholesterol 38 mg/dl; LDL Cholesterol Calculated 113 mg/dl; Triglycerides 147 mg/dl (0-150); Troponin I < 0.015 ng/ml (0-0.045); VLDL Cholesterol 29 mg/dl
--- NOTE | 2019-03-20 07:05 | CT Scan Report ---
CT OF THE ABDOMEN AND PELVIS WITHOUT CONTRAST CLINICAL HISTORY: Left upper quadrant abdominal pain. COMPARISON STUDY: CT of the abdomen and pelvis and right upper cord ultrasound September 09, 2012. TECHNIQUE: Axial images of the abdomen and pelvis were obtained without IV contrast. Images were revi ewed in the axial, sagittal, and coronal planes. Automated exposure control was utilized for the marvin dy. A dose lowering technique was utilized adhering to the principles of ALARA. FINDINGS: No pneumatosis, free air or portal venous gas is present. There is contrast within the marcel ecting systems, ureters and bladder from recent contrast-enhanced CT. This decreases the sensitivity for detection of urinary calculi but there is no hydronephrosis or hydroureter. Intrauterine device i s in place. There is minimal layering hyperdense material within the gallbladder. Unenhanced images o f the liver, spleen and pancreas are unremarkable. Small hypodense bilateral adrenal nodules are unch anged since prior CT. These reflect adenomas. There is no peripancreatic or pericholecystic infiltrat ion. There is no evidence for a bowel obstruction. The appendix is normal. No ascites or lymphadenopa thy is present. Caliber of small and large bowel is normal. There are no suspicious osseous lesions. Intrauterine device is in place. Ovaries are not enlarged. IMPRESSION: 1. No acute process within the abdomen or pelvis on unenhanced exam. 2. Contrast within the collecting systems, ureters and bladder from recent contrast-enhanced CT which decreases sensitivity for detection of urinary calculi. However, no hydronephrosis. 3. Normal appendix. No bowel obstruction. ACT 112: Negative or not required by law. Electronically signed by: Fabricio Bermudez M.D. 03/20/2019 7:03 AM
[2019-03-20] MEDS: ENOXAPARIN INJ 40 MG/0.4 ML SYR SQ SCH (08:10)
[2019-03-20] MEDS: LOSARTAN POTASSIUM 50 MG TAB PO SCH (08:10)
[2019-03-20] MEDS: ESCITALOPRAM OXALATE 20 MG TAB PO SCH (08:10)
[2019-03-20] MEDS: TRAMADOL HCL 50 MG TABLET PO PRN ×2 (08:53→16:16)
--- NOTE | 2019-03-20 12:42 | Electrocardiogram Report ---
Test Reason : Blood Pressure : / mmHG Vent. Rate : 079 BPM Atrial Rate : 079 BPM P-R Int : 178 ms QRS Dur : 080 ms QT Int : 384 ms P-R-T Axes : 040 004 041 degrees QTc Int : 440 ms Normal sinus rhythm Normal ECG When compared with ECG of 11-NOV-2016 12:53, No significant change was found Confirmed by Jame Arrieta ([id number]) on 03/20/2019 12:42:02 PM Referred By: REFERRED SELF Confirmed By:Jame Arrieta
--- NOTE | 2019-03-20 12:46 | Electrocardiogram Report ---
Test Reason : Blood Pressure : / mmHG Vent. Rate : 077 BPM Atrial Rate : 077 BPM P-R Int : 174 ms QRS Dur : 086 ms QT Int : 382 ms P-R-T Axes : 041 035 066 degrees QTc Int : 432 ms Normal sinus rhythm Normal ECG When compared with ECG of 19-MAR-2019 20:34, (unconfirmed) No significant change was found Confirmed by Jame Arrieta ([id number]) on 03/20/2019 12:46:32 PM Referred By: REFERRED SELF Confirmed By:Jame Arrieta
--- NOTE | 2019-03-20 13:46 | Cardiology Consultation ---
Date of Consultation March 20, 2019 Assessment & Plan (1) Dyspnea: (2) Left-sided chest pain: History of Present Illness Attending Physician: Renaldo Sena MD History of Present Illness This is a 48-year-old morbidly obese female who was seen in our clinic in October with symptoms of lightheadedness, heart palpitations and an aura similar to migraines when she would stand for long periods. The patient had a work-up including an echocardiogram and ZIO. Both the studies were unremarkable and she was discharged from the practice. Over the past several weeks she is been having which she describes as shortness of breath when she stands for a long time requiring her to sit down. Interestingly, she can use a recumbent bike for 20 to 30 minutes without symptoms. She has had no syncope. No ac tivity related chest pain. She does not become diaphoretic or feel heart palpitations when she become short of breath. She has a history of dysfunctional uterine bleeding with iron deficiency anemia however, her counts have been stable. She is scheduled to have a hysterectomy in the future. She states that she has been worked up by the pulmonary service without an etiology to her symptoms. I do not see any records in [email or web address]. She was not getting better so she decided to come into the hospital. Since being admitted the patient has had a CT of the chest, CT of the abdomen and a chest x-ray all of which have been unremarkable. Her cardiac markers are negative. EKG is within normal limits. Allergies Allergy/AdvReac Type Severity Reaction Status Date / Time guaifenesin [From Entex LA] Allergy Severe Anaphylaxis Verified 03/19/19 21:04 phenylephrine [From Entex LA] Allergy Severe Anaphylaxis Verified 03/19/19 21:04 phenylpropanolamine Allergy Severe Anaphylaxis Verified 03/19/19 21:04 [From Entex LA] latex Allergy Intermediate Hives. Verified 03/19/19 21:04 adhesive Allergy Mild BAND-AID-HI Verified 03/19/19 21:04 VES aspirin Allergy Mild TAKES Verified 03/19/19 21:04 MOTRIN AT HOME Home Medications Home Medications Medication Instructions Recorded Confirmed Type albuterol sulfate 2 puff INHALATION DIRECTED PRN 03/19/19 03/19/19 History escitalopram oxalate 20 mg PO DAILY 03/19/19 03/19/19 History losartan 25 mg PO DAILY 03/19/19 03/19/19 History meloxicam 0 mg PO DAILY 03/19/19 03/19/19 History Patient History Medical History Asthma (Resolved) Facial paresthesia (Acute) Headache (Acute) Migraines (Chronic) Social History Preferred Language: Micronesian Communication Ability: Effective [employer] Required: No Beliefs That Will Affect Care: None Current Living Situation: Family Other Information That Helps Us Care for You: No Feels Safe at Home: Yes Safety Concerns: Feels Safe At This Time Smoking Status: Never smoker Do You Dip or Chew Tobacco: No ; Second Hand Exposure: No ; Tobacco Cessation Education Requested by Patient: No Hx Alcohol Use: No Hx Substance Use: No Review of Systems Review of Systems: All systems reviewed & are unremarkable except as noted in HPI & below Nothing additional to add. Physical Exam Physical Exam: General: Morbidly obese Head: normocephalic, no masses, lesions, tenderness or abnormalities Eyes: conjunctiva are pink and non-injected, sclera clear Neck: supple, no adenopathy, no bruits, normal jugular venous pulse, no hepatojugular reflux Chest: normal shape and normal respiratory effort Lungs: clear to auscultation and percussion Cardiac Exam: - regular rate & rhythm, no murmurs gallops or rubs - normal S1, normal S2 Pulses: 2(+) throughout Abdomen: abdomen soft, non-tender, no abnormal masses and no hepatosplenomegaly Musculoskeletal: no gait disturbance, no joint inflammation, no deforming arthritis Extremities: no edema and no cyanosis Neuro: grossly normal exam Results & Data Vital Signs (Past 12 Hours) Vital Signs Temp Pulse Resp BP BP Pulse Ox 03/20/19 11:02 36.8 C 73 18 130/78 94 03/20/19 07:04 36.4 C L 76 20 124/77 95 03/20/19 03:44 36.9 C 79 18 120/69 94 Laboratory Results Laboratory Results - last 24 hr 03/19/19 03/19/19 03/19/19 20:45 20:45 20:45 WBC 14.72 H RBC 4.85 Hgb 13.3 Hct 39.6 MCV 81.6 MCH 27.4 MCHC 33.6 RDW Std Deviation 43.8 RDW Coeff of Nitin 14.8 H Plt Count 430 H MPV 11.6 H Immature Gran % (Auto) 0.3 Neut % (Auto) 68.2 Lymph % (Auto) 23.8 [place] % (Auto) 5.5 Eos % (Auto) 2.0 Baso % (Auto) 0.2 Immature Gran # (Auto) 0.04 H Neut # (Auto) 10.04 H Lymph # (Auto) 3.[address] [place] # (Auto) 0.81 H Eos # (Auto) 0.29 Baso # (Auto) 0.03 PT 10.3 INR 1.0 APTT 27.6 PTT Ratio 1.0 D-Dimer 500 Sodium 138 Potassium 4.0 Chloride 103 Carbon Dioxide 28 Anion Gap 7.0 BUN 14 Creatinine 0.61 Est Cr Clr Drug Dosing 184.2 Est GFR ( Amer) 125.1 Est GFR (Non-Af Amer) 108.0 BUN/Creatinine Ratio 22.6 H Glucose 108 H Calcium 9.3 Magnesium 1.9 Total Bilirubin 0.2 AST 8 L ALT 18 Alkaline Phosphatase 80 Troponin I < 0.015 Total Protein 8.2 Albumin 3.6 Globulin 4.6 H Albumin/Globulin Ratio 0.8 L Triglycerides Cholesterol LDL Cholesterol, Calc VLDL Cholesterol, Calc HDL Cholesterol Cholesterol/HDL Ratio Lipase 101 Urine Color Urine Appearance Urine pH Ur Specific [place] Urine Protein Urine Glucose (UA) Urine Ketones Urine Blood Urine Nitrite Urine Bilirubin Urine Urobilinogen Ur Leukocyte Esterase Urine Test 03/19/19 03/19/19 03/20/19 22:05 22:05 05:41 WBC 12.83 H RBC 4.72 Hgb 12.5 Hct 38.6 MCV 81.8 MCH 26.5 MCHC 32.4 RDW Std Deviation 44.0 RDW Coeff of Nitin 14.9 H Plt Count 340 MPV 11.6 H Immature Gran % (Auto) 0.4 Neut % (Auto) 68.7 Lymph % (Auto) 22.5 [place] % (Auto) 6.0 Eos % (Auto) 2.2 Baso % (Auto) 0.2 Immature Gran # (Auto) 0.05 H Neut # (Auto) 8.82 H Lymph # (Auto) 2.89 [place] # (Auto) 0.77 H Eos # (Auto) 0.28 Baso # (Auto) 0.02 PT INR APTT PTT Ratio D-Dimer Sodium Potassium Chloride Carbon Dioxide Anion Gap BUN Creatinine Est Cr Clr Drug Dosing Est GFR ( Amer) Est GFR (Non-Af Amer) BUN/Creatinine Ratio Glucose Calcium Magnesium Total Bilirubin AST ALT Alkaline Phosphatase Troponin I Total Protein Albumin Globulin Albumin/Globulin Ratio Triglycerides Cholesterol LDL Cholesterol, Calc VLDL Cholesterol, Calc HDL Cholesterol Cholesterol/HDL Ratio Lipase Urine Color Yellow Urine Appearance Clear Urine pH 7.0 Ur Specific [place] 1.022 Urine Protein Negative Urine Glucose (UA) Negative Urine Ketones Negative Urine Blood Negative Urine Nitrite Negative Urine Bilirubin Negative Urine Urobilinogen Negative Ur Leukocyte Esterase Negative Urine Test Negative 03/20/19 03/20/19 05:41 05:41 WBC RBC Hgb Hct MCV MCH MCHC RDW Std Deviation RDW Coeff of Nitin Plt Count MPV Immature Gran % (Auto) Neut % (Auto) Lymph % (Auto) [place] % (Auto) Eos % (Auto) Baso % (Auto) Immature Gran # (Auto) Neut # (Auto) Lymph # (Auto) [place] # (Auto) Eos # (Auto) Baso # (Auto) PT INR APTT 27.7 PTT Ratio 1.0 D-Dimer Sodium 138 Potassium 3.7 Chloride 105 Carbon Dioxide 28 Anion Gap 5.0 BUN 12 Creatinine 0.65 Est Cr Clr Drug Dosing 172.3 Est GFR ( Amer) 122.5 Est GFR (Non-Af Amer) 105.7 BUN/Creatinine Ratio 18.5 Glucose 135 H Calcium 8.6 Magnesium Total Bilirubin AST ALT Alkaline Phosphatase Troponin I < 0.015 Total Protein Albumin Globulin Albumin/Globulin Ratio Triglycerides 147 Cholesterol 180 LDL Cholesterol, Calc 113 VLDL Cholesterol, Calc 29 HDL Cholesterol 38 Cholesterol/HDL Ratio 5 Lipase Urine Color Urine Appearance Urine pH Ur Specific [place] Urine Protein Urine Glucose (UA) Urine Ketones Urine Blood Urine Nitrite Urine Bilirubin Urine Urobilinogen Ur Leukocyte Esterase Urine Test Medications Administered Current Inpatient Medications Acetaminophen (Tylenol) 650 mg PO Q4H PRN PRN Reason: Pain or Fever Stop: 04/19/19 00:27 Aspirin [facility]) [facility] Stop: 04/19/19 02:04 Last Admin: 03/20/19 04:03 Dose: 81 mg Documented by: Enoxaparin Sodium (Lovenox) 40 mg SQ QAM [facility] Stop: 04/19/19 08:59 Last Admin: 03/20/19 08:10 Dose: 40 mg Documented by: Escitalopram Oxalate (Lexapro Tab) 20 mg PO DAILY MARKO Stop: 04/19/19 08:59 Last Admin: 03/20/19 08:10 Dose: 20 mg Documented by: Sodium Chloride (Nss 1000ml) 1,000 mls @ 40 mls/hr IV .Q24H MARKO Stop: 04/19/19 00:27 Last Admin: 03/20/19 00:30 Dose: 40 mls/hr Documented by: Promethazine HCl 12.5 mg/ (Sodium Chloride) 50.5 mls @ 202 mls/hr IV Q6H PRN PRN Reason: Nausea And Vomiting Stop: 04/19/19 00:27 Lorazepam (Ativan) 0.5 mg in 1 mls @ 1 mls/min IV Q4H PRN PRN Reason: Anxiety/Agitation Stop: 04/19/19 00:27 Losartan Potassium (Cozaar) 50 mg PO DAILY [facility] Stop: 04/19/19 08:59 Last Admin: 03/20/19 08:10 Dose: 50 mg Documented by: Morphine Sulfate (Morphine Sulfate) 4 mg IV Q4H PRN PRN Reason: Pain Stop: 04/03/19 00:27 Nitroglycerin (Nitrostat) 0.4 mg SL UD PRN PRN Reason: Chest Pain Stop: 04/19/19 00:27 Tramadol HCl (Ultram) 25 - 50 mg PO Q4H PRN PRN Reason: Pain Stop: 04/19/19 00:27 Last Admin: 03/20/19 08:53 Dose: 50 mg Documented by: (1) Dyspnea Dyspnea type: acute respiratory distress Qualified Code(s): R06.03 - Acute respiratory distress
--- NOTE | 2019-03-20 17:58 | Hospitalist Progress Note ---
Date of Service March 20, 2019 Assessment & Plan (1) Left-sided chest pain: Etiology on unknown Need to rule ACS CTA chest showed no evidence for pulmonary embolus. CT abd showed no acute process within the abdomen or pelvis on unenhanced exam. Troponin x2 negative EKG showed ni ischemic changes No arrhythmia an tele monitor Cardiology on board and plan for dobutamine stress echo in am Continue aspirin for now Will make NPO after midnight Prediabetes recent hemoglobin A1c of 6.4 on February 2019 Counseling on diet and exercise ( and weight loss) chronic iron deficiency anemia Possible related to menorrhagia Hemoglobin Stable HTN BP elevated on admission BP improves Continue Losartan Monitor BP DVT prophylaxis on Lovenox subcu Code Status Full code Disposition Plan for dobutamine stress echo Subjective Pt was seen and examined Lying in bed with no distress Pt said that she is having headache She said that whenever she has difficulty to breath she develops headache She said that she continue to have pain under her left breast area Physical Exam Physical Exam: General- No acute distress Head- atraumatic Eyes- PERRL, EOMI, ENT- oropharynx clear Neck- supple, no JVD Lungs- clear to auscultation Heart- regular rhythm; no murmur Abdomen- normal bowel sounds, soft, nontender Extremities- no calf tenderness Neuro- alert, oriented x 3; PERRL, EOMI; no facial palsy; no dysarthria Skin- warm & dry Results & Data ([facility]) Vital Signs (Past 12 Hours) Vital Signs Temp Pulse Resp BP Pulse Ox 03/20/19 15:43 36.8 C 79 18 150/85 H 93 03/20/19 11:02 36.8 C 73 18 130/78 94 03/20/19 07:04 36.4 C L 76 20 124/77 95
[2019-03-21] MEDS: SODIUM CHLORIDE 0.9% 1000ML 1,000 ML IV SCH (01:30)
[2019-03-21] MEDS: ASPIRIN 81 MG ECTAB PO SCH (08:11)
[2019-03-21] MEDS: ESCITALOPRAM OXALATE 20 MG TAB PO SCH (08:11)
[2019-03-21] MEDS: LOSARTAN POTASSIUM 50 MG TAB PO SCH (08:11)
[2019-03-21] MEDS: ENOXAPARIN INJ 40 MG/0.4 ML SYR SQ SCH (08:12)
[2019-03-21] MEDS ORDERED: ATROPINE SULFATE 0.1 MG/ML 10ML SYR IV ONE (10:25)
[2019-03-21] MEDS ORDERED: DOBUTamine HCL 12.5 MG/ML 20 ML VIAL IV ONE (10:25)
[2019-03-21] MEDS ORDERED: METOPROLOL TARTRATE 1 MG/ML VIAL IV ONE (10:25)
--- NOTE | 2019-03-21 11:15 | Cardiology Progress Note ---
Date of Service March 21, 2019 Assessment & Plan (1) Dyspnea: No objective evidence of myocardial ischemia on technically adequate dobutamine stress echocardiogram. At this time I recommend ongoing efforts and optimizing her blood pressure. Her prior to hospital dose of losartan has been increased to 50 mg daily from 25 mg daily, and at this point, I would be hesitant to make any more changes until we wait to see how she tolerates this. I am going to advance her diet. Her cholesterol was reasonably well controlled. Although she has asthma, I think the glaring potential cause of her shortness of breath can still be considered the fact that she is overweight, with a body mass index of 50 kg/m2, and efforts at weight loss are certainly recommended. She is declining clinical likelihood of having obstructive sleep apnea, but apparently has declined work-up/therapy for this in the past and I am going to counseled her that this could potentially be life-changing treatment for her in terms of helping lower her blood pressure and helping her with having more restful sleep. Subjective Patient seen prior to, during, and post dobutamine stress echocardiogram. The patient's EKG and echocardiographic response to stress were normal. She did complain of shortness of breath during the test, and her systolic blood pressure reached a peak of 190 mmHg. Physical Exam Physical Exam: Temp Pulse Resp BP Pulse Ox 36.7 C 76 20 145/83 H 95 03/21/19 07:10 03/21/19 07:10 03/21/19 07:10 03/21/19 07:10 03/21/19 07:10 Constitutional: WD/WN, vitals as above Respiratory: normal respiratory effort, lungs clear to auscultation Cardiovascular: RRR, no murmur, no edema Gastrointestinal (Abdomen): normal bowel sounds, soft, nontender, no hepatosplenomegaly Neurologic: PERRL, EOMI, accommodation nl, no face palsy, no dysarthria Results & Data Vital Signs (Past 12 Hours) Vital Signs Temp Pulse Resp BP Pulse Ox Pulse Ox 03/21/19 07:10 36.7 C 76 20 145/83 H 95 03/21/19 03:43 36.9 C 77 143/84 H 95 03/21/19 00:28 95 (1) Dyspnea Dyspnea type: acute respiratory distress Qualified Code(s): R06.03 - Acute respiratory distress
--- NOTE | 2019-03-21 14:23 | Hospitalist Progress Note ---
Date of Service March 21, 2019 Assessment & Plan (1) Left-sided chest pain: Etiology on unknown Need to rule ACS CTA chest showed no evidence for pulmonary embolus. CT abd showed no acute process within the abdomen or pelvis on unenhanced exam. Troponin x2 negative EKG showed no ischemic changes No arrhythmia an tele monitor Cardiology on board Case discussed with cardiology Dobutamine stress echo done this morning showed no evidence of myocardial ischemia OK from cardiology standpoint to discharge home today Prediabetes recent hemoglobin A1c of 6.4 on February 2019 Counseling on diet and exercise ( and weight loss) Chronic iron deficiency anemia Possible related to menorrhagia Hemoglobin Stable Follow up with DIELECTRIC [employer] HTN BP elevated on admission BP improves Continue Losartan 50 mg daily Pt was advised to get an outpatient sleep study to r/o any sleep apnea Monitor BP DVT prophylaxis on Lovenox subcu Code Status Full code Disposition Discharge home today Subjective Pt was seen and examined Lying in bed with no distress eating Pt said that she feels ok She said that she did not have any chest discomfort or pain during the dobutamine stress echo Currently denies any chest pain, palpitation, dizziness and SOB Physical Exam Physical Exam: General- No acute distress Head- atraumatic Eyes- PERRL, EOMI, ENT- oropharynx clear Neck- supple, no JVD Lungs- clear to auscultation Heart- regular rhythm; no murmur Abdomen- normal bowel sounds, soft, nontender Extremities- no calf tenderness Neuro- alert, oriented x 3; PERRL, EOMI; no facial palsy; no dysarthria Skin- warm & dry Results & Data ([facility]) Vital Signs (Past 12 Hours) Vital Signs Temp Pulse Resp BP Pulse Ox 03/21/19 11:32 36.7 C 80 18 140/89 91 03/21/19 07:10 36.7 C 76 20 145/83 H 95 03/21/19 03:43 36.9 C 77 143/84 H 95
--- NOTE | 2019-03-22 16:54 | Discharge Summary ---
Date of Service March 21, 2019 Admission HPI Per Admitting Provider History obtained from patient, family, and records. Medical history significant for hypertension, mood disorder, prediabetes, chronic iron deficiency anemia related to menorrhagia as per records, ROGE as per records, past tobacco abuse. Patient was having [employer] meeting today when she noted left-sided lower chest ("at the diaphragm level" as per patient) going to her left arm with leona rtness of breath. Different from reflux as per patient. Has had episodes in the past related to her being anemic from her heavy menstrual bleeding. Menstrual bleeding actually less all be extended since IUD placement. No cough symptoms. No relief with breathing treatment given at the ER. SBP 150-190s at the ER. Patient does not check blood pressure at home. Patient compliant with home medications. Denies dietary indiscretion. Denies unusual stress. Denies OTC NSAID intake. History of ROGE, patient not interested in CPAP as of outpatient 2013 Sleep Medicine notes. Medical History as above TTE 2019 EF 55 to 59%, no significant valvular disease Surgical History : Breast reduction, gynecologic procedures Family History : Heart disease, diabetes, breast cancer, asthma Personal/Social history : Past tobacco abuse, occasional EtOH intake, homemaker Admission Exam Per Admitting Provider GENERAL: Comfortable, slightly anxious, obese, looks older than stated age, no respiratory distress SKIN: Normal color, warm HEENT: Bespectacled, [place] palpebral conjunctivae, no ptosis, dry buccal mucosa NECK : Supple, short neck, no tenderness CHEST : Decreased breath sounds , no tenderness HEART : RRR, no obvious murmurs ABDOMEN: Some distention, left upper quadrant tenderness EXTREMITIES : Minimal LE swelling, no LE tenderness, no other conspicuous deformities noted NEUROLOGIC : Coherent, no facial asymmetry, no other gross focality Principal Diagnosis Left-sided chest pain Prediabetes chronic iron deficiency anemia Hypertension Discharge Exam General- No acute distress Head- atraumatic Eyes- PERRL, EOMI, ENT- oropharynx clear Neck- supple, no JVD Lungs- clear to auscultation Heart- regular rhythm; no murmur Abdomen- normal bowel sounds, soft, nontender Extremities- no calf tenderness Neuro- alert, oriented x 3; PERRL, EOMI; no facial palsy; no dysarthria Skin- warm & dry Discharge Data Allergies Allergy/AdvReac Type Severity Reaction Status Date / Time guaifenesin [From Entex [place]] Allergy Severe Anaphylaxis Verified 03/19/19 21:04 phenylephrine [From Entex [place]] Allergy Severe Anaphylaxis Verified 03/19/19 21:04 phenylpropanolamine Allergy Severe Anaphylaxis Verified 03/19/19 21:04 [From Entex [place]] latex Allergy Intermediate Hives. Verified 03/19/19 21:04 adhesive Allergy Mild BAND-AID-HI Verified 03/19/19 21:04 VES aspirin Allergy Mild TAKES Verified 03/19/19 21:04 MOTRIN AT HOME Consultations 03/19/19 22:32 ED Decision to Admit Stat 03/20/19 01:39 Consult Cardiology Routine Ordered Studies 03/19/19 20:28 CT angio chest PE protocol Stat 03/19/19 23:16 CT abd pelvis wo con Urgent CHEST CTA for PULMONARY ARTERIES CT DOSE: 864.07 mGy.cm HISTORY: Dyspnea/left chest pain eval for PE TECHNIQUE: Multiaxial CT images of the chest were performed following the intravenous administration of contrast to evaluate the pulmonary arteries. Maximal intensity projection images were also obtained. A dose lowering technique was utilized adhering to the principles of ALARA. COMPARISON STUDY: Chest CTA 03/27/2007. FINDINGS: There is a normal caliber thoracic aorta with no evidence for dissection. There is no evidence for pulmonary embolus. No pleural effusions. No pneumothorax. The liver and spleen are unremarkable. No mediastinal or hilar lymphadenopathy. The central airways are patent. Linear densities within the lingula and right middle lobe consistent with subsegmental atelectasis. Otherwise, lungs are clear. IMPRESSION: No evidence for pulmonary embolus. ACT 112: Negative or not required by law. Electronically signed by: Jordan Ramírez M.D. 03/19/2019 10:08 PM Dictated: 03/19/192201 Transcribed: 03/19/192201 XR chest 1V portable HISTORY: Dyspnea COMPARISON: Chest CTA 03/27/2007. FINDINGS: The heart is mildly enlarged. No pleural effusions. No pneumothorax. Small linear density within the periphery the left midlung zone favor scarring or atelectasis. Otherwise, lungs are clear. IMPRESSION: Mild cardiomegaly. ACT 112: Negative or not required by law. Electronically signed by: Jordan Ramírez M.D. 03/19/2019 8:53 PM Dictated: 03/19/192051 Transcribed: 03/19/192051 CT OF THE ABDOMEN AND PELVIS WITHOUT CONTRAST CLINICAL HISTORY: Left upper quadrant abdominal pain. COMPARISON STUDY: CT of the abdomen and pelvis and right upper cord ultrasound September 09, 2012. TECHNIQUE: Axial images of the abdomen and pelvis were obtained without IV contrast. Images were reviewed in the axial, sagittal, and coronal planes. Automated exposure control was utilized for the study. A dose lowering technique was utilized adhering to the principles of ALARA. FINDINGS: No pneumatosis, free air or portal venous gas is present. There is contrast within the collecting systems, ureters and bladder from recent contrast-enhanced CT. This decreases the sensitivity for detection of urinary calculi but there is no hydronephrosis or hydroureter. Intrauterine device is in place. There is minimal layering hyperdense material within the gallbladder. Unenhanced images of the liver, spleen and pancreas are unremarkable. Small hypodense bilateral adrenal nodules are unchanged since prior CT. These reflect adenomas. There is no peripancreatic or pericholecystic infiltration. There is no evidence for a bowel obstruction. The appendix is normal. No ascites or lymphadenopathy is present. Caliber of small and large bowel is normal. There are no suspicious osseous lesions. Intrauterine device is in place. Ovaries are not enlarged. IMPRESSION: 1. No acute process within the abdomen or pelvis on unenhanced exam. 2. Contrast within the collecting systems, ureters and bladder from recent contrast-enhanced CT which decreases sensitivity for detection of urinary calculi. However, no hydronephrosis. 3. Normal appendix. No bowel obstruction. ACT 112: Negative or not required by law. Electronically signed by: Fabricio Bermudez M.D. 03/20/2019 7:03 AM Dictated: 03/20/19 0656 Transcribed: 03/20/1956 Hospital Course (1) Left-sided chest pain: Etiology on unknown Need to rule ACS CTA chest showed no evidence for pulmonary embolus. CT abd showed no acute process within the abdomen or pelvis on unenhanced exam. Troponin x2 negative EKG showed no ischemic changes No arrhythmia an tele monitor Cardiology on board Case discussed with cardiology Dobutamine stress echo done this morning showed no evidence of myocardial ischemia OK from cardiology standpoint to discharge home today Prediabetes recent hemoglobin A1c of 6.4 on February 2019 Counseling on diet and exercise ( and weight loss) Chronic iron deficiency anemia Possible related to menorrhagia Hemoglobin Stable Follow up with MANAGER [facility] HTN BP elevated on admission BP improves Continue Losartan 50 mg daily Pt was advised to get an outpatient sleep study to r/o any sleep apnea Monitor BP DVT prophylaxis on Lovenox subcu Code Status Full code Disposition Discharge home today Total Time Total Time Spent Total Time Spent (In Minutes): 35 minutes Total Time Includes: Examination of the Patient, Discharge Planning, Medication Reconciliation, Communication With Other Providers and Other Discharge Plan Discharge Items Patient Disposition: Home - Self-Care Reason For Visit: HTN URGENCY Discharge Diagnosis: Left-sided chest pain Prediabetes chronic iron deficiency anemia Hypertension Activity: Resume your previous activity Non-emergency contact: Primary Care Provider Call non-emergency contact if: you have any medication questions Follow-up/Referrals: Matilde Mao, [Primary Care Provider] - Diet: Heart Healthy Addtl Attending Provider Instructions: Follow up with your primary care provider Dr. Mao on 03/24 @ 11:05 Follow up with your cardiology Your physician will place a referral to get a sleep study to rule out any sleep apnea You are pre diabetes, please follow a healthy diet with limited concentrated sweet Counseling on weight loss and exercise You physician will continue to monitor your hemoglobin A1c for diabetes Monitor your blood pressure and bring your blood pressure log at your next appointment with your physician Pending Studies at Discharge: No Stand-Alone Forms: My [facility] VHX, Smoking Cessation Medications and DC Order Prescriptions: New losartan 50 mg Tablet 50 mg PO DAILY 30 Days Qty: 30 RF: 0 Continued meloxicam 7.5 mg Tablet 0 mg PO DAILY RF: 0 albuterol sulfate 90 mcg/actuation Hfa Aerosol Inhaler 2 puff INHALATION DIRECTED PRN (Reason: Shortness Of Breath Or Wheezing) RF: 0 escitalopram oxalate 20 mg tablet 20 mg PO DAILY RF: 0 Discontinued losartan 25 mg tablet 25 mg PO DAILY RF: 0 Discharge Orders: Discharge Order (Routine); Ordered 03/21/19 Ordered By: Renaldo Sena Admission Data Admit Date/Time: 03/19/19 23:19 Attending Provider: Renaldo Sena Admit Provider: Gary Garza Primary Care Provider: Matilde Mao Other Providers: Gary Garza ; Homar Fisher Other Interventions: Discharge Summary Assessment (RN) Last Done: 03/21/19 14:54 DC Date/Time DO NOT enter until pt leaves facility: 03/21/19 16:04
== END 2019-03-21 16:04 | disposition home or self-care (01) ==
LOC: ED 19:53 → 2S 19:53

== ENCOUNTER 2021-11-11 15:43 | Observation (INO) ==
[2021-11-11] MEDS ORDERED: SODIUM CHLORIDE 0.9% 1000ML 1,000 ML IV STA (15:51)
[2021-11-11] MEDS ORDERED: ONDANSETRON INJ 2 MG/ML 2 ML VIAL IV STA ×2 (15:51→21:41)
--- NOTE | 2021-11-11 15:51 | ED Triage Note ---
Date of Service November 11, 2021 History of Present Illness This patient was briefly evaluated while in triage. An abbreviated physical exam was performed. This patient is a 51-year-old Female with past medical history of anemia, anxiety/depression, asthma, migraines who presents to the ED for evaluation of abdominal pain. Pt. points to visitor to provide history. "Since Wednesday, she has had severe abdominal cramping, diarrhea, vomiting, and swelling and bruising in her RUQ with severe pain in left side of back." Pt. states "It's affecting my breathing. I normally breathe much better than this. And that's with taking the inhaler twice." Physical Exam VITALS: Vitals are noted on the nurse's note and reviewed by myself. GENERAL: This is a 51 year old white female, in no acute distress, nondiaphoretic, well-developed well-nourished. SKIN: No obvious rashes, edema, erythema HEAD: Normocephalic atraumatic. EYES: Conjunctivae without injection, sclerae without icterus. NECK: No JVD. LUNGS: No retractions or accessory muscle use. MUSCULOSKELETAL: Normal gait. NEURO: Patient was alert and oriented to person place and time. No focal neurological deficits. Initial orders for labs and / or imaging were placed and patient was placed in the waiting area until a bed is available. Please see further documentation for the full ED course.
--- NOTE | 2021-11-11 16:33 | XRay Report ---
XR chest 1V portable HISTORY: 51 years-old Female Epigastric pain, SOB acute shortness of breath with chest and abdominal pain COMPARISON: Chest radiograph 03/19/2019 TECHNIQUE: Portable AP view of the chest FINDINGS: Cardiomediastinal and hilar silhouettes are within normal limits. No pneumothorax, pleural effusion, airspace consolidation or overt pulmonary edema. Degenerative changes of the shoulders and spine. Mil d linear subsegmental atelectasis versus scarring of the left lung base. IMPRESSION: No acute process. ACT 112: Negative or not required by law. The above report was generated using voice recognition software. It may contain grammatical, syntax o r spelling errors. Electronically signed by: Koby Cantrell M.D. 11/11/2021 4:32 PM
[2021-11-11 18:13] LABS: Basophils # (auto) 0.09 K/uL (0-0.2); Basophils % (auto) 0.4 %; Eosinophils # (auto) 0.15 K/uL (0-0.50); Eosinophils % (auto) 0.7 %; Hematocrit (blood only) 42.9 % (34.1-44.9); Hemoglobin 13.9 g/dl (12.0-16.0); Immature Granulocytes # (auto) 0.16 K/uL (0.00-0.02); Immature Granulocytes % (auto) 0.7 %; Lymphocytes # (auto) 2.46 K/uL (1.2-3.4); Mean Corpuscular Hemoglobin 26.1 pg (25.0-34.0); Mean Corpuscular Hgb Conc 32.4 g/dL (32.0-36.0); Mean Corpuscular Volume 80.6 fL (80.0-100.0); Mean Platelet Volume 11.1 fL (9.4-12.3); Monocytes % (auto) 6.7 %; Neutrophils # (auto) 17.91 K/uL (1.4-6.5); Neutrophils % (auto) 80.5 %; Platelet Count 479 K/uL (130-400); RDW Coefficient of Variation 15.2 % (11.5-14.5); RDW Standard Deviation 44.5 fL (36.4-46.3); Red Blood Count 5.32 M/uL (3.93-5.22); White Blood Count 22.27 K/ul (4.8-10.8)
[2021-11-11 18:17] LABS: INR 1.1 (0.9-1.1); Prothrombin Time 11.4 Seconds (9.0-12.0)
[2021-11-11 18:35] LABS: Albumin Level 4.3 gm/dl (3.4-5.0); BUN Creatinine Ratio 17.1 (10-20); Bilirubin,Total 0.8 mg/dl (0.2-1.0); Calcium 9.4 mg/dl (8.5-10.1); Creatinine Clr Calc Pharmacy 131.6 ml/min; Est GFR (Non-African American) 91.5 ml/min; Globulin 4.1 gm/dl (2.5-4.0); Potassium 3.8 mmol/L (3.5-5.1); Total Protein 8.4 gm/dl (6.0-8.3)
[2021-11-11 18:40] LABS: Troponin I High Sensitivity 7.4 pg/ml (0-14)
[2021-11-11] MEDS ORDERED: IOVERSOL 350 MG 100mL Prefilled Syringe IV ONE (19:13)
--- NOTE | 2021-11-11 19:41 | CT Scan Report ---
ABDOMEN AND PELVIS CT WITH IV CONTRAST CT DOSE: 1201.75 mGycm HISTORY: Acute right upper quadrant abdominal pain with nausea and vomiting RUQ pain, left flank chyna n, N/V TECHNIQUE: Multiaxial CT images of the abdomen and pelvis were performed following the IV administrat ion of 90 cc of Optiray, A dose lowering technique was utilized adhering to the principles of ALARA. COMPARISON STUDY: CT abdomen pelvis 03/20/2019 FINDINGS: Mild right hemidiaphragmatic elevation. The lung bases are generally clear. No pneumatosis or pneumoperitoneum. The spleen, and pancreas appear unremarkable. Small hypodense thickening of the adrenal glands redemonstrated suggestive of probable adenomata. Unremarkable liver. No hepatic mass i dentified. The gallbladder is distended with wall thickening and pericholecystic fluid. No cholelithi asis identified. No biliary ductal dilation. Edema tracks along the pancreaticoduodenal groove. Unremarkable kidneys. No renal or ureteral calculi or hydronephrosis identified. Unremarkable urinary bladder. Hysterectomy. Surgical clips the left hemipelvis. Aorta and IVC are unremarkable. There is no lymphadenopathy. Mild wall thickening of the distal stomach and proximal duodenum is likely reacti ve. The appendix appears noninflamed however the distal tip is mildly dilated at 9 mm and is fluid-fi lled. Unremarkable soft tissues. L5-S1 posterior disc osteophyte complex results in bilateral neural foraminal narrowing. Degenerative changes of the spine, pelvis and hips. IMPRESSION: 1. Distended gallbladder with wall thickening and pericholecystic fluid compatible with acute cholecy stitis. 2. Edema tracking along the pancreaticoduodenal groove is likely reactive. Correlate with lipase to e xclude concomitant pancreatitis. 3. The appendiceal tip is mildly dilated and fluid-filled. No inflammatory changes are identified to suggest acute appendicitis. Follow-up recommended to exclude an underlying mucosal lesion. 4. No bowel obstruction or pneumoperitoneum. 5. Additional findings as above. ACT 112: Negative or not required by law. The above report was generated using voice recognition software. It may contain grammatical, syntax o r spelling errors. Electronically signed by: Koby Cantrell M.D. 11/11/2021 7:38 PM
[2021-11-11] MEDS ORDERED: PIPERACILLIN/TAZOBACTAM 4.5 GM/120 ML BAG IV ONE (19:58)
--- NOTE | 2021-11-11 20:14 | Emergency Department Note ---
History of Present Illness General Chief complaint: Illness Stated complaint: pain abdominal and back black stool diarrhea Time Seen by Provider: 11/11/21 19:48 History of Present Illness Maximum Pain Intensity: 8 51-year-old female presents to the ED with a chief complaint of right upper quadrant abdominal pain that started on Wednesday evening. She associates some nausea and vomiting as well as decreased appetite and some chills. Pain is worse with movement and breathing. Nothing seems to help. Patient reports a history of controlled type 2 diabetes. She receives a injection once a week. Home Medications Medication Instructions Recorded Confirmed Type albuterol sulfate 90 mcg/actuation 2 puff inhalation DIRECTED PRN 03/19/19 09/22/19 History aerosol inhaler Shortness Of Breath Or Wheezing escitalopram oxalate 20 mg tablet 20 mg PO QAM 03/19/19 09/22/19 History (Lexapro) meloxicam 7.5 mg tablet (Mobic) 7.5 mg PO QAM 03/19/19 09/22/19 History losartan 50 mg tablet 50 mg PO QAM 05/17/19 09/22/19 History multivitamin 1 tab PO QAM 05/17/19 09/22/19 History buspirone 15 mg tablet 15 mg PO BID 09/01/19 09/22/19 History Allergies Allergy/AdvReac Type Severity Reaction Status Date / Time guaifenesin [From Entex LA] Allergy Severe Anaphylaxis Verified 09/01/19 09:47 phenylephrine [From Entex LA] Allergy Severe Anaphylaxis Verified 09/01/19 09:47 phenylpropanolamine Allergy Severe Anaphylaxis Verified 09/01/19 09:47 [From Entex LA] adhesive Allergy Intermediate Hives Verified 09/01/19 09:47 latex Allergy Intermediate Hives Verified 09/06/19 15:49 aspirin Allergy Unknown does not Verified 09/06/19 15:49 take because "father was allergic" to ASA Past Med/Surg History Medical History (Updated 11/11/21 @ 20:14 by William Perry DO) Anemia no hx of blood transfusion, + hx of iron infusions (09/2018) Anxiety and depression Asthma stable Diabetes mellitus, type 2 diet controlled Hypertension Migraine Morbid obesity Osteoarthritis Uterine bleeding Surgical History H/O bilateral breast reduction surgery History of colonoscopy History of laparoscopy FOR ECTOPIC History of tooth extraction Family History Father Family history of diabetes mellitus Mother Family history of diabetes mellitus Grandfather Family history of diabetes mellitus Grandmother Family history of diabetes mellitus Brother Family history of diabetes mellitus Grandfather (Paternal) Family history of esophageal cancer Social History Smoking Status: Never smoker Second Hand Exposure: No; Hx Alcohol Use: Yes Alcohol type: wine and hard liquor Hx Substance Use: No Preferred Language: Upper Sorbian Communication Ability: Effective Chemical Manager Required: No Beliefs That Will Affect Care: None Current Living Situation: Spouse Feels Safe at Home: Yes Assistive Devices: None Review of Systems A total of 10 systems reviewed and were otherwise negative Physical Exam Vital Signs Vital Signs - 24 hr 11/11/21 15:48 Temperature 37 C Temperature Source Oral Pulse Rate 78 Respiratory Rate 20 Respiratory Effort / Characteristics Non-Labored Spontaneous Respiratory Depth Normal Respiratory Pattern Regular Blood Pressure 140/83 Blood Pressure Mean 102 Pulse Oximetry 96 Oxygen Delivery Method Room Air Sepsis Recent Fever Within 48 Hours No Sepsis New/Unexplained Change in Mental Status No Sepsis Action Taken by Nursing No Action Required CONSTITUTIONAL/VITAL SIGNS: Reviewed / noted above. GENERAL: Non-toxic in appearance. INTEGUMENTARY: Warm, dry, and Kelly. HEAD: Normocephalic. EYES: without scleral icterus or trauma. ENT/OROPHARYNX: clear and moist. LYMPHADENOPATHY/NECK: Is supple without lymphadenopathy or meningismus. RESPIRATORY: Clear to auscultation bilaterally. No increased work of breathing. CARDIOVASCULAR: Regular rate and rhythm. GI/ABDOMEN: Soft and tender in the right upper quadrant. No organomegaly or pulsatile mass. EXTREMITIES: Warm and well perfused. BACK: No CVA tenderness. NEUROLOGICAL: Intact without focal deficits. PSYCHIATRIC: normal affect. MUSCULOSKELETAL: Normally developed with good muscle tone. TRIAGE NURSING DOCUMENTATION REVIEWED. Course Administered Medications Piperacillin Sod/Tazobactam Sod (Zosyn) 4.5 gm in 120 mls @ 240 mls/hr IV NOW ONE Stop: 11/11/21 20:27 Last Admin: 11/11/21 20:09 Dose: 240 mls/hr Documented By: DP Discontinued Medications Sodium Chloride (Nss 1000ml) 1,000 mls @ 999 mls/hr IV .Q1H1M STA Stop: 11/11/21 16:51 Last Admin: 11/11/21 18:08 Dose: 999 mls/hr Documented By: MARILIN Ioversol (Ioversol 350 Mg 100ml Prefilled Syringe) 90 ml IV ONCE ONE Stop: 11/11/21 19:14 Last Admin: 11/11/21 19:13 Dose: 90 ml Documented By: ALIYAH Ondansetron HCl (Ondansetron Inj 2 Mg/Ml 2 Ml Vial) 4 mg IV NOW STA Stop: 11/11/21 15:52 Last Admin: 11/11/21 18:17 Dose: Not Given Documented By: MARILIN Medical Decision Making Differential Diagnosis Differential considered: pancreatitis, hepatitis, acute cholecystitis, AAA, UTI, pyelonephritis, kidney stones, appendicitis, diverticulitis, shingles, bowel obstruction, mesenteric ischemia, intussusception,hernia Medical Records Attestation: I reviewed the patient's medical records. Home Medications Current Medication List: was personally reviewed by me Laboratory Data Attestation: I reviewed the patient's lab results. Result diagrams: 11/11/21 17:56 11/11/21 17:56 Lab Results 11/11/21 11/11/21 11/11/21 Range/Units 17:56 17:56 17:56 WBC 22.27 H (4.8-10.8) K/ul RBC 5.32 H (3.93-5.22) M/uL Hgb 13.9 (12.0-16.0) g/dl Hct 42.9 (34.1-44.9) % MCV 80.6 (80.0-100.0) fL MCH 26.1 (25.0-34.0) pg MCHC 32.4 (32.0-36.0) g/dL RDW Std Deviation 44.5 (36.4-46.3) fL RDW Coeff of Nitin 15.2 H (11.5-14.5) % Plt Count 479 H (130-400) K/uL MPV 11.1 (9.4-12.3) fL Immature Gran % (Auto) 0.7 % Neut % (Auto) 80.5 % Lymph % (Auto) 11.0 % [place] % (Auto) 6.7 % Eos % (Auto) 0.7 % Baso % (Auto) 0.4 % Neut # (Auto) 17.91 H (1.4-6.5) K/uL Lymph # (Auto) 2.46 (1.2-3.4) K/uL [place] # (Auto) 1.50 H (0.24-0.82) K/uL Eos # (Auto) 0.15 (0-0.50) K/uL Baso # (Auto) 0.09 (0-0.2) K/uL Immature Gran # (Auto) 0.16 H (0.00-0.02) K/uL PT 11.4 (9.0-12.0) Seconds INR 1.1 (0.9-1.1) Sodium 135 L (136-145) mmol/L Potassium 3.8 (3.5-5.1) mmol/L Chloride 100 (98-107) mmol/L Carbon Dioxide 26 (21-32) mmol/L Anion Gap 9 (3-11) BUN 13 (6-23) mg/dl Creatinine 0.76 (0.6-1.2) mg/dl Est Cr Clr Drug Dosing 131.6 ml/min Est GFR ( Amer) 106.0 ml/min Est GFR (Non-Af Amer) 91.5 ml/min BUN/Creatinine Ratio 17.1 (10-20) Glucose 95 (70-99(Fasting)) mg/dl Lactate (0.4-2.0) mmol/L Calcium 9.4 (8.5-10.1) mg/dl Total Bilirubin 0.8 (0.2-1.0) mg/dl AST 9 L (13-39) U/L ALT 12 (7-52) U/L Alkaline Phosphatase 76 (34-104) U/L Troponin I High Sens 7.4 (0-14) pg/ml Total Protein 8.4 H (6.0-8.3) gm/dl Albumin 4.3 (3.4-5.0) gm/dl Globulin 4.1 H (2.5-4.0) gm/dl Albumin/Globulin Ratio 1.0 (0.9-2) Lipase 15 (11-82) U/L 11/11/21 Range/Units 17:56 WBC (4.8-10.8) K/ul RBC (3.93-5.22) M/uL Hgb (12.0-16.0) g/dl Hct (34.1-44.9) % MCV (80.0-100.0) fL MCH (25.0-34.0) pg MCHC (32.0-36.0) g/dL RDW Std Deviation (36.4-46.3) fL RDW Coeff of Nitin (11.5-14.5) % Plt Count (130-400) K/uL MPV (9.4-12.3) fL Immature Gran % (Auto) % Neut % (Auto) % Lymph % (Auto) % [place] % (Auto) % Eos % (Auto) % Baso % (Auto) % Neut # (Auto) (1.4-6.5) K/uL Lymph # (Auto) (1.2-3.4) K/uL [place] # (Auto) (0.24-0.82) K/uL Eos # (Auto) (0-0.50) K/uL Baso # (Auto) (0-0.2) K/uL Immature Gran # (Auto) (0.00-0.02) K/uL PT (9.0-12.0) Seconds INR (0.9-1.1) Sodium (136-145) mmol/L Potassium (3.5-5.1) mmol/L Chloride (98-107) mmol/L Carbon Dioxide (21-32) mmol/L Anion Gap (3-11) BUN (6-23) mg/dl Creatinine (0.6-1.2) mg/dl Est Cr Clr Drug Dosing ml/min Est GFR ( Amer) ml/min Est GFR (Non-Af Amer) ml/min BUN/Creatinine Ratio (10-20) Glucose (70-99(Fasting)) mg/dl Lactate 1.0 (0.4-2.0) mmol/L Calcium (8.5-10.1) mg/dl Total Bilirubin (0.2-1.0) mg/dl AST (13-39) U/L ALT (7-52) U/L Alkaline Phosphatase (34-104) U/L Troponin I High Sens (0-14) pg/ml Total Protein (6.0-8.3) gm/dl Albumin (3.4-5.0) gm/dl Globulin (2.5-4.0) gm/dl Albumin/Globulin Ratio (0.9-2) Lipase (11-82) U/L Imaging Data Radiologist's Impression: Abdomen/Pelvis CT 11/11/21 15:[address] WITH IV CONTRAST CT DOSE: 1201.75 mGycm HISTORY: Acute right upper quadrant abdominal pain with nausea and vomiting RUQ pain, left flank pain, N/V TECHNIQUE: Multiaxial CT images of the abdomen and pelvis were performed following the IV administration of 90 cc of Optiray, A dose lowering technique was utilized adhering to the principles of ALARA. COMPARISON STUDY: CT abdomen pelvis 03/20/2019 FINDINGS: Mild right hemidiaphragmatic elevation. The lung bases are generally clear. No pneumatosis or pneumoperitoneum. The spleen, and pancreas appear unremarkable. Small hypodense thickening of the adrenal glands redemonstrated suggestive of probable adenomata. Unremarkable liver. No hepatic mass identified. The gallbladder is distended with wall thickening and pericholecystic fluid. No cholelithiasis identified. No biliary ductal dilation. Edema tracks along the pancreaticoduodenal groove. Unremarkable kidneys. No renal or ureteral calculi or hydronephrosis identified. Unremarkable urinary bladder. Hysterectomy. Surgical clips the left hemipelvis. Aorta and IVC are unremarkable. There is no lymphadenopathy. Mild wall thickening of the distal stomach and proximal duodenum is likely reactive. The appendix appears noninflamed however the distal tip is mildly dilated at 9 mm and is fluid-filled. Unremarkable soft tissues. L5-S1 posterior disc osteophyte complex results in bilateral neural foraminal narrowing. Degenerative changes of the spine, pelvis and hips. IMPRESSION: 1. Distended gallbladder with wall thickening and pericholecystic fluid compatible with acute cholecystitis. 2. Edema tracking along the pancreaticoduodenal groove is likely reactive. Correlate with lipase to exclude concomitant pancreatitis. 3. The appendiceal tip is mildly dilated and fluid-filled. No inflammatory changes are identified to suggest acute appendicitis. Follow-up recommended to exclude an underlying mucosal lesion. 4. No bowel obstruction or pneumoperitoneum. 5. Additional findings as above. ACT 112: Negative or not required by law. The above report was generated using voice recognition software. It may contain grammatical, syntax or spelling errors. Electronically signed by: Koby Cantrell M.D. 11/11/2021 7:38 PM Chest X-Ray 11/11/21 15:52 XR chest 1V portable HISTORY: 51 years-old Female Epigastric pain, SOB acute shortness of breath with chest and abdominal pain COMPARISON: Chest radiograph 03/19/2019 TECHNIQUE: Portable AP view of the chest FINDINGS: Cardiomediastinal and hilar silhouettes are within normal limits. No pneumothorax, pleural effusion, airspace consolidation or overt pulmonary edema. Degenerative changes of the shoulders and spine. Mild linear subsegmental atelectasis versus scarring of the left lung base. IMPRESSION: No acute process. ACT 112: Negative or not required by law. The above report was generated using voice recognition software. It may contain grammatical, syntax or spelling errors. Electronically signed by: Koby Cantrell M.D. 11/11/2021 4:32 PM ECG Data Attestation: I personally reviewed and interpreted this ECG as follows: Additional Comments: Twelve-lead EKG: Per my interpretation shows a sinus rhythm at a rate of 75. No ST elevation. No PVCs. Normal QTC. MDM Narrative 51-year-old female presents with a right upper quadrant abdominal pain. CT scan shows acute cholecystitis. White blood cell count was 22,000. I spoke with Dr. Kendrick from general surgery about the patient. He will see the patient in the ED for further evaluation and care. LFTs and lipase were normal. Impression & Plan Acute acalculous cholecystitis Discharge Plan Visit Data Chief Complaint: Illness Stated Complaint: pain abdominal and back black stool diarrhea ED Provider: William Perry Discharge Problem: Acute acalculous cholecystitis Patient Disposition: Being Evaluated by Surgeon Forms Stand Alone Forms: My [facility] Prescriptions Prescriptions: No Action meloxicam [Mobic] 7.5 mg Tablet 7.5 mg PO QAM albuterol sulfate 90 mcg/actuation Hfa Aerosol Inhaler 2 puff INHALATION DIRECTED PRN (Reason: Shortness Of Breath Or Wheezing) escitalopram oxalate [Lexapro] 20 mg tablet 20 mg PO QAM multivitamin Tablet 1 tab PO QAM losartan 50 mg Tablet 50 mg PO QAM buspirone 15 mg Tablet 15 mg PO BID Referrals Referrals: Matilde Mao, [Primary Care Provider] -
[2021-11-11 21:11] LABS: Appearance Urine Clear (Clear); Bacteria Urine Automated 2+ (Negative); Bilirubin Urine Negative (Negative); Blood Urine 2+ (Negative); Color Urine Yellow; Epithelial Cell Urine Auto >30 /lpf (0-5); Glucose Urine UA Negative (Negative); Ketones Urine Negative (Negative); Leukocyte Esterase Urine 1+ (Negative); Nitrite Urine Negative (Negative); Protein Urine Trace (Negative); Specific Gravity Urine > 1.045 (1.000-1.030); Urobilinogen Urine Negative (Negative); pH Urine 5.5 (4.5-7.5)
[2021-11-11] MEDS ORDERED: MoRPHine SULFATE 4 MG/ML 1 ML CARP\\VIAL IV STA (21:41)
--- NOTE | 2021-11-11 22:37 | Surgery Consultation ---
Date of Consultation November 11, 2021 Assessment & Plan (1) Acute acalculous cholecystitis: pt is a 51 year-old female who presents with 4 days history RUQ pain with nausea and vomiting, IMP: acute cholecystitis, Plan, admit to hospital, U/S study gallbladder, NPO IV fluid, IV antibiotic, control pain, repeat labs in morning, I recommend to do laparoscopic cholecystectomy, possible open or cholangiogram, tomorrow, D/W benefits, risks and alternatives of the surgery, the risks - infection, bleeding, injury other organs, may need ERCP, incisional hernia, DVT, CA, stroke, , pt understood, she agrees with surgery, I answered all questions, History of Present Illness Reason for Consultation: acute cholecystitis, Requesting Physician: William Perry DO Attending Physician: History of Present Illness General Chief complaint: Illness Stated complaint: pain abdominal and back black stool diarrhea Time Seen by Provider: 11/11/21 19:48 History of Present Illness Maximum Pain Intensity: 8 51-year-old female presents to the ED with a chief complaint of right upper quadrant abdominal pain that started on Wednesday evening. She associates some nausea and vomiting as well as decreased appetite and some chills. Pain is worse with movement and breathing. Nothing seems to help. Patient reports a history of controlled type 2 diabetes. She receives a injection once a week. I ( Maia Kendrick MD ) got a call for consult acute cholecystitis, I reviewed pt's H/P, labs, CT scan with pt, Home Medications Medication Instructions Recorded Confirmed Type albuterol sulfate 90 mcg/actuation 2 puff inhalation DIRECTED PRN 03/19/19 09/22/19 History aerosol inhaler Shortness Of Breath Or Wheezing escitalopram oxalate 20 mg tablet 20 mg PO QAM 03/19/19 History (Lexapro) meloxicam 7.5 mg tablet (Mobic) 7.5 mg PO QAM 03/19/19 09/22/19 History losartan 50 mg tablet 50 mg PO QAM 05/17/19 09/22/19 History multivitamin 1 tab PO QAM 05/17/19 09/22/19 History buspirone 15 mg tablet 15 mg PO BID 09/01/19 09/22/19 History Allergies Allergy/AdvReac Type Severity Reaction Status Date / Time guaifenesin [From Entex LA] Allergy Severe Anaphylaxis Verified 09/01/19 09:47 phenylephrine [From Entex LA] Allergy Severe Anaphylaxis Verified 09/01/19 09:47 phenylpropanolamine Allergy Severe Anaphylaxis Verified 09/01/19 09:47 [From Entex LA] adhesive Allergy Intermediate Hives Verified 09/01/19 09:47 latex Allergy Intermediate Hives Verified 09/06/19 15:49 aspirin Allergy Unknown does not Verified 09/06/19 15:49 take because "father was allergic" to ASA Past Med/Surg History Medical History(Updated 11/11/21 @ 20:14 by William Perry DO) Anemia no hx of blood transfusion, + hx of iron infusions (09/2018)Anxiety and depression Asthma stableDiabetes mellitus, type 2 diet controlledHypertension Migraine Morbid obesity Osteoarthritis Uterine bleeding Surgical History H/O bilateral breast reduction surgery History of colonoscopy History of laparoscopy FOR ECTOPIC PREGNANCYHistory of tooth extraction Family History Father Family history of diabetes mellitusMother Family history of diabetes mellitusGrandfather Family history of diabetes mellitusGrandmother Family history of diabetes mellitusBrother Family history of diabetes mellitusGrandfather (Paternal) Family history of esophageal cancer Social History Smoking Status: Never smoker Second Hand Exposure: No; Hx Alcohol Use: Yes Alcohol type: wine and hard liquor Hx Substance Use: No Preferred Language: Citizen Of [place] Communication Ability: Effective Scientific Helper Required: No Beliefs That Will Affect Care: None Current Living Situation: Spouse Feels Safe at Home: Yes Assistive Devices: None Review of Systems A total of 10 systems reviewed and were otherwise negative Allergies Allergy/AdvReac Type Severity Reaction Status Date / Time guaifenesin [From Entex LA] Allergy Severe Anaphylaxis Verified 11/11/21 21:11 phenylephrine [From Entex LA] Allergy Severe Anaphylaxis Verified 11/11/21 21:11 phenylpropanolamine Allergy Severe Anaphylaxis Verified 11/11/21 21:11 [From Entex LA] adhesive Allergy Intermediate Hives Verified 11/11/21 21:11 latex Allergy Intermediate Hives Verified 11/11/21 21:11 aspirin Allergy Unknown does not Verified 11/11/21 21:11 take because "father was allergic" to ASA Home Medications Medication Instructions Recorded Confirmed Type albuterol sulfate 90 mcg/actuation 2 puff inhalation Q4 PRN Shortness 03/19/19 11/11/21 History aerosol inhaler Of Breath Or cough buspirone 30 mg tablet 30 mg PO QAM 11/11/21 11/11/21 History clonidine HCl 0.1 mg tablet 0.1 mg PO HS 11/11/21 11/11/21 History ergocalciferol (vitamin D2) 1,250 1,250 mcg PO WK 11/11/21 11/11/21 History mcg (50,000 unit) capsule ferrous sulfate 325 mg (65 mg 325 mg PO QAM 11/11/21 11/11/21 History iron) tablet (iron) fluoxetine 20 mg capsule 20 mg PO QAM 11/11/21 11/11/21 History fluoxetine 40 mg capsule 40 mg PO QAM 11/11/21 11/11/21 History lorazepam 0.5 mg tablet 0.5 mg PO HS PRN Sleep 11/11/21 11/11/21 History losartan 50 mg-hydrochlorothiazide 1 tab PO QAM 11/11/21 11/11/21 History 12.5 mg tablet magnesium 500 mg tablet 500 mg PO HS 11/11/21 11/11/21 History meloxicam 15 mg tablet 15 mg PO QAM 11/11/21 11/11/21 History dbnnpztmicjg-Bn-larp-minerals 1 tab PO DAILY 11/11/21 11/11/21 History olopatadine 0.1 % eye drops 1 drp ophthalmic (eye) BID 11/11/21 11/11/21 History omeprazole 20 mg capsule,delayed 20 mg PO QAM 11/11/21 11/11/21 History release oxybutynin chloride 5 mg 5 mg PO QAM 11/11/21 11/11/21 History tablet,extended release 24 hr rosuvastatin 10 mg tablet 10 mg PO QAM 11/11/21 11/11/21 History tirzepatide 5 mg/0.5 mL 5 mg subcut WK 11/11/21 11/11/21 History subcutaneous pen injector (Mounjaro) tramadol 50 mg tablet 50 mg PO Q6H PRN migraine pain 11/11/21 11/11/21 History zinc acetate 50 mg (zinc) capsule 50 mg PO QAM 11/11/21 11/11/21 History Patient History Medical History (Updated 11/11/21 @ 20:14 by William Perry DO) Anemia no hx of blood transfusion, + hx of iron infusions (09/2018) Anxiety and depression Asthma stable Diabetes mellitus, type 2 diet controlled Hypertension Migraine Morbid obesity Osteoarthritis Uterine bleeding Surgical History H/O bilateral breast reduction surgery History of colonoscopy History of laparoscopy FOR ECTOPIC History of tooth extraction Family History Father Family history of diabetes mellitus Mother Family history of diabetes mellitus Grandfather Family history of diabetes mellitus Grandmother Family history of diabetes mellitus Brother Family history of diabetes mellitus Grandfather (Paternal) Family history of esophageal cancer Social History Smoking Status: Never smoker Second Hand Exposure: No; Hx Alcohol Use: Yes Alcohol type: wine and hard liquor Hx Substance Use: No Preferred Language: Citizen Of [place] Communication Ability: Effective Scientific Helper Required: No Beliefs That Will Affect Care: None Current Living Situation: Spouse Feels Safe at Home: Yes Assistive Devices: None Physical Exam Constitutional: obesity Eyes: PERRL, conjunctivae normal, anicteric sclerae Neck: trachea midline, no thyromegaly Respiratory: normal respiratory effort, lungs clear to auscultation Cardiovascular: RRR, no murmur, no edema Gastrointestinal (Abdomen): soft, tenderness at RUQ, no rebound pain, no distend, BS + Musculoskeletal: no cyanosis or clubbing, extremities motor strength 5/5 Neurologic: patellar DTR's 2+ bilat, sensation intact Psychiatric: A+Ox3, euthymic affect Results & Data ([facility]) Vital Signs (Past 12 Hours) Vital Signs Temp Pulse Resp BP Pulse Ox O2 Del Method 11/11/21 21:00 77 23 142/70 H 100 Room Air 11/11/21 20:09 82 20 124/69 100 Room Air 11/11/21 15:48 37 C 78 20 140/83 96 Room Air Laboratory Results Abnormal lab results 11/11/21 11/11/21 11/11/21 Range/Units 17:56 17:56 20:50 WBC 22.27 H (4.8-10.8) K/ul RBC 5.32 H (3.93-5.22) M/uL RDW Coeff of Nitin 15.2 H (11.5-14.5) % Plt Count 479 H (130-400) K/uL Neut # (Auto) 17.91 H (1.4-6.5) K/uL [place] # (Auto) 1.50 H (0.24-0.82) K/uL Immature Gran # (Auto) 0.16 H (0.00-0.02) K/uL Sodium 135 L (136-145) mmol/L AST 9 L (13-39) U/L Total Protein 8.4 H (6.0-8.3) gm/dl Globulin 4.1 H (2.5-4.0) gm/dl Ur Specific [place] > 1.045 H (1.000-1.030) Urine Protein Trace H (Negative) Urine Blood 2+ H (Negative) Ur Leukocyte Esterase 1+ H (Negative) Urine WBC (Auto) 5-10 H (0-5) /hpf Urine RBC (Auto) 10-30 H (0-4) /hpf U Epithel Cells (Auto) >30 H (0-5) /lpf Urine Bacteria (Auto) 2+ H (Negative) Diagnostic Findings ABDOMEN AND PELVIS CT WITH IV CONTRAST CT DOSE: 1201.75 mGycm HISTORY: Acute right upper quadrant abdominal pain with nausea and vomiting RUQ pain, left flank pain, N/V TECHNIQUE: Multiaxial CT images of the abdomen and pelvis were performed following the IV administration of 90 cc of Optiray, A dose lowering technique was utilized adhering to the principles of ALARA. COMPARISON STUDY: CT abdomen pelvis 03/20/2019 FINDINGS: Mild right hemidiaphragmatic elevation. The lung bases are generally clear. No pneumatosis or pneumoperitoneum. The spleen, and pancreas appear unremarkable. Small hypodense thickening of the adrenal glands redemonstrated suggestive of probable adenomata. Unremarkable liver. No hepatic mass andrez ntified. The gallbladder is distended with wall thickening and pericholecystic fluid. No cholelithiasis identified. No biliary ductal dilation. Edema tracks along the pancreaticoduodenal groove. Unremarkable kidneys. No renal or ureteral calculi or hydronephrosis identified. Unremarkable urinary bladder. Hysterectomy. Surgical clips the left hemipelvis. Aorta and IVC are unremarkable. There is no lymphadenopathy. Mild wall thickening of the distal stomach and proximal duodenum is likely reactive. The appendix appears noninflamed however the distal tip is mildly dilated at 9 mm and is fluid-filled. Unremarkable soft tissues. L5-S1 posterior disc osteophyte complex results in bilateral neural foraminal narrowing. Degenerative changes of the spine, pelvis and hips. IMPRESSION: 1. Distended gallbladder with wall thickening and pericholecystic fluid compatible with acute cholecystitis. 2. Edema tracking along the pancreaticoduodenal groove is likely reactive. Correlate with lipase to exclude concomitant pancreatitis. 3. The appendiceal tip is mildly dilated and fluid-filled. No inflammatory changes are identified to suggest acute appendicitis. Follow-up recommended to exclude an underlying mucosal lesion. 4. No bowel obstruction or pneumoperitoneum. 5. Additional findings as above. ACT 112: Negative or not required by law.
[2021-11-11] MEDS ORDERED: PROCHLORPERAZINE 2 ML IV ONE (23:47)
[2021-11-12] MEDS ORDERED: traMADol HCL 50 MG TABLET PO PRN (00:05)
[2021-11-12] MEDS ORDERED: LORazepam 0.5 MG TAB PO PRN (00:05)
[2021-11-12] MEDS ORDERED: ALBUTEROL HFA 8 GM INHALER INH PRN (00:05)
[2021-11-12] MEDS: LACTATED RINGER'S 1,000 ML IV SCH ×2 (00:27→18:59)
[2021-11-12] MEDS: HYDROmorphone INJ 1 MG/ML SYRINGE IV PRN ×2 (00:34→17:55)
[2021-11-12] MEDS: PIPERACILLIN/TAZOBACTAM 3.375 GM in DEXTROSE 5% 100 ML IV SCH ×3 (03:13→20:14)
[2021-11-12 06:22] LABS: Basophils # (auto) 0.04 K/uL (0-0.2); Basophils % (auto) 0.2 %; Eosinophils # (auto) 0.13 K/uL (0-0.50); Eosinophils % (auto) 0.6 %; Hematocrit (blood only) 37.3 % (34.1-44.9); Hemoglobin 12.1 g/dl (12.0-16.0); Immature Granulocytes % (auto) 0.5 %; Lymphocytes # (auto) 1.92 K/uL (1.2-3.4); Lymphocytes % (auto) 9.1 %; Mean Corpuscular Hgb Conc 32.4 g/dL (32.0-36.0); Mean Corpuscular Volume 80.2 fL (80.0-100.0); Mean Platelet Volume 11.1 fL (9.4-12.3); Monocytes # (auto) 1.58 K/uL (0.24-0.82); Monocytes % (auto) 7.5 %; Neutrophils # (auto) 17.38 K/uL (1.4-6.5); Neutrophils % (auto) 82.1 %; Platelet Count 401 K/uL (130-400); RDW Coefficient of Variation 15.2 % (11.5-14.5); RDW Standard Deviation 44.3 fL (36.4-46.3); Red Blood Count 4.65 M/uL (3.93-5.22); White Blood Count 21.15 K/ul (4.8-10.8)
[2021-11-12 06:30] LABS: Albumin Globulin Ratio 1.1 (0.9-2); Albumin Level 3.7 gm/dl (3.4-5.0); BUN Creatinine Ratio 13.2 (10-20); Bilirubin,Total 1.7 mg/dl (0.2-1.0); Calcium 8.7 mg/dl (8.5-10.1); Creatinine Clr Calc Pharmacy 131.6 ml/min; Est GFR (Non-African American) 91.5 ml/min; Globulin 3.4 gm/dl (2.5-4.0); Potassium 3.9 mmol/L (3.5-5.1); Total Protein 7.1 gm/dl (6.0-8.3)
--- NOTE | 2021-11-12 08:16 | Ultrasound Report ---
US gallbladder CLINICAL HISTORY: RUQ pain TECHNIQUE: Multiple real-time sonographic images of the right upper quadrant were obtained. Comparison: Comparison is made to CT abdomen pelvis 11/04/2021 and gallbladder ultrasound 613 FINDINGS: The liver is diffusely echogenic in appearance with poor ultrasound penetration, with normal contour, which is consistent with fatty infiltration. Hepatomegaly is seen, the liver measures 24 cm. No foca l mass lesions are seen. No intrahepatic ductal dilatation is seen. Gallstones are seen. There is color wall edema, the wall measures 4 mm in thickness. Mendoza's sign cannot be assessed as the patie nt received pain medication. The common duct measures 0.5 cm in diameter at the level of the hepatic artery. The visualized portions of the pancreas appear normal. The right kidney shows normal echogenicity, cortical thickness and renal contour. The right kidney sh ows no evidence of hydronephrosis or mass. No ascites or free fluid is seen in Fernandez's pouch. IMPRESSION: 1. Multiple stones in the gallbladder and gallbladder wall thickening. Findings are concerning for c holecystitis. Mendoza's sign cannot be assessed as the patient has received pain medication. 2. Hepatic steatosis. ACT 112: Negative or not required by law. Electronically signed by: Theo Dueñas M.D. 11/12/2021 8:14 AM
[2021-11-12] MEDS ORDERED: MELOXICAM 7.5 MG TAB PO SCH (09:00)
[2021-11-12] MEDS ORDERED: CEROVITE ADV FORMULA TAB PO SCH (09:00)
[2021-11-12] MEDS ORDERED: FLUoxetine HCL 20 MG CAP PO SCH (09:00)
[2021-11-12] MEDS ORDERED: ONDANSETRON INJ 2 MG/ML 2 ML VIAL IV PRN ×2 (09:13→11:56)
[2021-11-12] MEDS: LOSARTAN/HCTZ 50/12.5MG TAB PO SCH (09:29)
[2021-11-12] MEDS: busPIRone 15 MG TAB PO SCH (09:29)
[2021-11-12] MEDS: FLUoxetine HCL 20 MG CAP PO SCH (09:29)
[2021-11-12] MEDS: OXYBUTYNIN CHLORIDE XL 5 MG TABCR PO SCH (09:29)
[2021-11-12] MEDS: PANTOprazole 40 MG TAB PO SCH (09:29)
[2021-11-12] MEDS: ROSUVASTATIN CALCIUM 10 MG TAB PO SCH (10:08)
[2021-11-12] MEDS: ZINC SULFATE 220 MG CAPSULE PO SCH (10:09)
--- NOTE | 2021-11-12 10:21 | History & Physical Bridge Note ---
Date of Service November 12, 2021 History & Physical Bridge Note I have examined the patient, reviewed the History & Physical and in the interval since the performance of the History & Physical I have noted the following changes of clinical significance: no changes noted,U/S study, acute cholecystitis, cholelithiasis, I recommend to do laparoscopic cholecystectomy, possible open or cholangiogram, D/w benefits, risks and alternatives of the surgery, the risks- infection, bleeding, injury other organs, sepsis, biliary leak, may need ERCP, incisional hernia, DVT, AK, pt understood, she agrees with surgery, she signed informed consent, I answered all questions, T bili 1.7, possible CBD stone, consult GI for possible ERCP,
[2021-11-12] MEDS ORDERED: LIDOCAINE 2% MPF LOCAL 5 ML VIAL INFIL ONE (11:00)
[2021-11-12] MEDS ORDERED: MIDAZOLAM HCL 1 MG/ML 2ML VIAL ONE (11:00)
[2021-11-12] MEDS ORDERED: fentaNYL citrate 100 MCG/2 ML VIAL ONE ×2 (11:00→14:28)
[2021-11-12] MEDS ORDERED: ROCURONIUM BROMIDE 10 MG/ML 5 ML VIAL IV ONE (11:00)
[2021-11-12] MEDS ORDERED: PROPOFOL IV EMULSION 10 MG/ML 20 ML VIAL IV ONE (11:00)
[2021-11-12] MEDS ORDERED: BACITRACIN OINT 15 GM TUBE ONE (11:08)
[2021-11-12] MEDS ORDERED: LIDOCAINE 1% LOCAL 20 ML VIAL ONE (11:08)
[2021-11-12] MEDS ORDERED: BUPIVACAINE 0.5 % 5 MG/1 ML MPF 30ML VIAL ONE (11:08)
--- NOTE | 2021-11-12 11:32 | Anesthesiology Consultation ---
Date of Service November 12, 2021 Assessment & Plan (1) Encounter for pre-operative examination: Chart Review Chart Review: Acceptable Risk for Surgery History Surgery Operation Date: 11/12/21 11:50 Proposed Procedures p Laparoscopic Cholecystectomy - Maia Kendrick MD Height/Weight Height: 5 ft 9 in Weight: 136.1 kg Allergies Allergy/AdvReac Type Severity Reaction Status Date / Time guaifenesin [From Entex LA] Allergy Severe Anaphylaxis Verified 11/11/21 21:11 phenylephrine [From Entex LA] Allergy Severe Anaphylaxis Verified 11/11/21 21:11 phenylpropanolamine Allergy Severe Anaphylaxis Verified 11/11/21 21:11 [From Entex LA] adhesive Allergy Intermediate Hives Verified 11/11/21 21:11 latex Allergy Intermediate Hives Verified 11/11/21 21:11 aspirin Allergy Unknown does not Verified 11/11/21 21:11 take because "father was allergic" to ASA Medications Home Medications Medication Instructions Recorded Confirmed Last Taken albuterol sulfate 90 mcg/actuation 2 puff inhalation Q4 PRN Shortness 03/19/19 0 11/11/21 09/08/19 aerosol inhaler Of Breath Or cough buspirone 30 mg tablet 30 mg PO QAM 11/11/21 11/11/21 11/11/21 clonidine HCl 0.1 mg tablet 0.1 mg PO HS 11/11/21 11/11/21 11/10/21 ergocalciferol (vitamin D2) 1,250 1,250 mcg PO WK 11/11/21 11/11/21 11/09/21 mcg (50,000 unit) capsule ferrous sulfate 325 mg (65 mg 325 mg PO QAM 11/11/21 11/11/21 11/11/21 iron) tablet (iron) fluoxetine 20 mg capsule 20 mg PO QAM 11/11/21 11/11/21 11/11/21 fluoxetine 40 mg capsule 40 mg PO QAM 11/11/21 11/11/21 11/11/21 lorazepam 0.5 mg tablet 0.5 mg PO HS PRN Sleep 11/11/21 11/11/21 Unknown losartan 50 mg-hydrochlorothiazide 1 tab PO QAM 11/11/21 11/11/21 11/11/21 12.5 mg tablet magnesium 500 mg tablet 500 mg PO HS 11/11/21 11/11/21 11/10/21 meloxicam 15 mg tablet 15 mg PO QAM 11/11/21 11/11/21 11/11/21 [id number]-Dp-xbge-minerals 1 tab PO DAILY 11/11/21 11/11/21 11/11/21 olopatadine 0.1 % eye drops 1 drp ophthalmic (eye) BID 11/11/21 11/11/21 Unknown omeprazole 20 mg capsule,delayed 20 mg PO QAM 11/11/21 11/11/21 11/11/21 release oxybutynin chloride 5 mg 5 mg PO QAM 11/11/21 11/11/21 11/11/21 tablet,extended release 24 hr rosuvastatin 10 mg tablet 10 mg PO QAM 11/11/21 11/11/21 11/11/21 tirzepatide 5 mg/0.5 mL 5 mg subcut WK 11/11/21 11/11/21 11/09/21 subcutaneous pen injector (Kathy) tramadol 50 mg tablet 50 mg PO Q6H PRN migraine pain 11/11/21 11/11/21 Unknown zinc acetate 50 mg (zinc) capsule 50 mg PO QA 11/11/21 11/11/21 11/11/21 Active Medications Generic Name Dose Route Start Last Admin Trade Name Freq PRN Reason Stop Dose Admin Buspirone HCl 30 mg 11/12/21 09:00 11/12/21 09:29 Buspirone 15 Mg Tab PO 12/12/21 08:59 30 mg QAM MARKO Administration Fluoxetine HCl 60 mg 11/12/21 09:00 11/12/21 09:29 Fluoxetine Hcl 20 Mg Cap PO 12/12/21 08:59 60 mg QAM MARKO Administration HCTZ/Losartan Potassium 1 tab 11/12/21 09:00 11/12/21 09:29 Losartan/Hctz 50/12.5mg Tab PO 12/12/21 08:59 1 tab QAM MARKO Administration Hydromorphone HCl 1 mg 11/12/21 00:05 11/12/21 00:34 Hydromorphone Inj 1 Mg/Ml Syringe IV 11/26/21 00:04 1 mg Q6H PRN Administration Pain Lactated Ringer's 1,000 mls @ 100 mls/hr 11/12/21 00:05 11/12/21 00:27 Lr IV 12/12/21 00:04 100 mls/hr .Q10H MARKO Administration Piperacillin Sod/Tazobactam 115 mls @ 28.75 mls/hr 11/12/21 02:00 11/12/21 07:16 Sod 3.375 gm/ Dextrose IV 11/22/21 01:59 Infused Q8H MARKO Infusion Protocol Miscellaneous 1 each 11/12/21 08:00 11/12/21 10:07 Olopatadine 0.1%: Order Awaiting Action N/A 12/12/21 07:59 Not Given QS MARKO Miscellaneous 1 each 11/12/21 08:00 11/12/21 10:08 Tirzepatide [Mounjaro]: Order Awaiting Action N/A 12/12/21 07:59 Not Given QS MARKO Multivitamins/Minerals 1 tab 11/12/21 09:00 11/12/21 10:08 Cerovite Adv Formula Tab PO 12/12/21 08:59 Not Given DAILY MARKO Oxybutynin Chloride 5 mg 11/12/21 09:00 11/12/21 09:29 Oxybutynin Chloride Xl 5 Mg Tabcr PO 12/12/21 08:59 5 mg QAM MARKO Administration Pantoprazole Sodium 40 mg 11/12/21 09:00 11/12/21 09:29 Pantoprazole 40 Mg Tab PO 12/12/21 08:59 40 mg QAM MARKO Administration Rosuvastatin Calcium 10 mg 11/12/21 09:00 11/12/21 10:08 Rosuvastatin Calcium 10 Mg Tab PO 12/12/21 08:59 Not Given QAM MARKO Zinc Sulfate 220 mg 11/12/21 09:00 11/12/21 10:09 Zinc Sulfate 220 Mg Capsule PO 12/12/21 08:59 Not Given QAM MARKO Past Medical History Medical History Anemia no hx of blood transfusion, + hx of iron infusions (09/2018) Anxiety and depression Asthma stable Diabetes mellitus, type 2 diet controlled Hypertension Migraine Morbid obesity Osteoarthritis Uterine bleeding Past Family History Family History Father Family history of diabetes mellitus Mother Family history of diabetes mellitus Grandfather Family history of diabetes mellitus Grandmother Family history of diabetes mellitus Brother Family history of diabetes mellitus Grandfather (Paternal) Family history of esophageal cancer Past Surgical History Surgical History H/O bilateral breast reduction surgery History of colonoscopy History of laparoscopy FOR ECTOPIC History of tooth extraction Social History Smoking Status: Never smoker Do You Dip or Chew Tobacco: No Hx Alcohol Use: Yes Alcohol type: wine and hard liquor alcohol intake frequency: a few times a month Hx Substance Use: No Physical Exam Vital Signs Last Vital Signs Temp 37 C 11/11/21 15:48 Pulse 75 11/12/21 10:00 Resp 16 11/12/21 09:03 BP 114/61 11/12/21 09:03 Pulse Ox 92 11/12/21 10:00 O2 Del Method 11/12/21 06:00 O2 Flow Rate 2 11/12/21 01:00 Testing Laboratory Results 11/12/21 05:39 11/12/21 05:39 PT 11.4 Seconds (9.0-12.0) 11/11/21 17:56 INR 1.1 (0.9-1.1) 11/11/21 17:56 Urine Color Yellow 11/11/21 20:50 Urine Appearance Clear (Clear) 11/11/21 20:50 Urine pH 5.5 (4.5-7.5) 11/11/21 20:50 Ur Specific [place] > 1.045 (1.000-1.030) H 11/11/21 20:50 Urine Protein Trace (Negative) H 11/11/21 20:50 Urine Glucose (UA) Negative (Negative) 11/11/21 20:50 Urine Ketones Negative (Negative) 11/11/21 20:50 Urine Nitrite Negative (Negative) 11/11/21 20:50 Ur Leukocyte Esterase 1+ (Negative) H 11/11/21 20:50 Urine WBC (Auto) 5-10 /hpf (0-5) H 11/11/21 20:50 Urine RBC (Auto) 10-30 /hpf (0-4) H 11/11/21 20:50 U Hyaline Cast (Auto) 1-5 /lpf (0-5) 11/11/21 20:50 U Epithel Cells (Auto) >30 /lpf (0-5) H 11/11/21 20:50 Urine Bacteria (Auto) 2+ (Negative) H 11/11/21 20:50 11/11/21 20:50 Urine Test Pending Electrocardiogram Date: 11/11/21 Findings: + NSR @ (75) Echocardiogram Date: 03/21/19 EF: 55-60% LV Function: normal Valvular Disease: + no significant valvular disease
[2021-11-12 11:37] LABS: Pregnancy Test, Serum Negative (Negative)
[2021-11-12] MEDS ORDERED: OPTIRAY 300 IV PRN (11:48)
[2021-11-12] MEDS ORDERED: ATROPINE SULFATE 0.1 MG/ML 10ML SYR IV PRN (11:56)
[2021-11-12] MEDS ORDERED: FAMOTIDINE/PF 20 MG/2 ML VIAL IV ONE (11:56)
[2021-11-12] MEDS ORDERED: fentaNYL citrate 100 MCG/2 ML VIAL IV PRN (11:56)
[2021-11-12] MEDS ORDERED: KETOROLAC 30 MG/ML VIAL IV PRN (11:56)
[2021-11-12] MEDS ORDERED: DROPERIDOL 5 MG/2 ML VIAL IV PRN (11:57)
[2021-11-12 12:00] LABS: Pregnancy Test, Urine Negative (Negative)
--- NOTE | 2021-11-12 12:30 | Gastrointestinal Consultation ---
Date of Consultation November 12, 2021 Assessment & Plan (1) Cholecystitis with cholelithiasis: Pt is a 51 yo female admitted with cholecystitis, cholelithiasis, noted to have leukocytosis and increased Tbili concerning for possible biliary obstruction. - Cholecystectomy by Surgery today - Keep NPO after midnight. Plan for EUS/ERCP by Dr. Roman in OR tomorrow 11/13. - Continue Zosyn IV - Trend LFTs History of Present Illness Reason for Consultation: Elevated LFTs Requesting Physician: Dr. Maia Kendrick Attending Physician: Dr. Maite West History of Present Illness Pt is a 51 yo female who presented to ED w c/o few days worth of chills wo fever, RUQ abd pain, n/v, dark then light colored stools, dark red urine. Upon evaluation was noted to have leukocytosis, and elevated LFTs w abdominal imaging indicating cholelithiasis, cholecystitis, no biliary ductal dilation. She is admitted and started on Zosyn IV. Surgery team plans to take her to OR for cholecystectomy today. LFTs noted to be increased, in particular Tbili and alk phos, thus GI consulted for possible ERCP. Allergies Allergy/AdvReac Type Severity Reaction Status Date / Time guaifenesin [From Entex LA] Allergy Severe Anaphylaxis Verified 11/12/21 11:39 phenylephrine [From Entex LA] Allergy Severe Anaphylaxis Verified 11/12/21 11:39 phenylpropanolamine Allergy Severe Anaphylaxis Verified 11/12/21 11:39 [From Entex LA] adhesive Allergy Intermediate Hives Verified 11/12/21 11:39 latex Allergy Intermediate Hives Verified 11/12/21 11:39 aspirin Allergy Unknown does not Verified 11/12/21 11:39 take because "father was allergic" to ASA Home Medications Medication Instructions Recorded Confirmed Type albuterol sulfate 90 mcg/actuation 2 puff inhalation Q4 PRN Shortness 03/19/19 11/11/21 History aerosol inhaler Of Breath Or cough buspirone 30 mg tablet 30 mg PO QAM 11/11/21 11/11/21 History clonidine HCl 0.1 mg tablet 0.1 mg PO HS 11/11/21 11/11/21 History ergocalciferol (vitamin D2) 1,250 1,250 mcg PO WK 11/11/21 11/11/21 History mcg (50,000 unit) capsule ferrous sulfate 325 mg (65 mg 325 mg PO QAM 11/11/21 11/11/21 History iron) tablet (iron) fluoxetine 20 mg capsule 20 mg PO QAM 11/11/21 11/11/21 History fluoxetine 40 mg capsule 40 mg PO QAM 11/11/21 11/11/21 History lorazepam 0.5 mg tablet 0.5 mg PO HS PRN Sleep 11/11/21 11/11/21 History losartan 50 mg-hydrochlorothiazide 1 tab PO QAM 11/11/21 11/11/21 History 12.5 mg tablet magnesium 500 mg tablet 500 mg PO HS 11/11/21 11/11/21 History meloxicam 15 mg tablet 15 mg PO QAM 11/11/21 11/11/21 History utcpnyihoecj-Kh-oxyk-minerals 1 tab PO DAILY 11/11/21 11/11/21 History olopatadine 0.1 % eye drops 1 drp ophthalmic (eye) BID 11/11/21 11/11/21 History omeprazole 20 mg capsule,delayed 20 mg PO QAM 11/11/21 11/11/21 History release oxybutynin chloride 5 mg 5 mg PO QAM 11/11/21 11/11/21 History tablet,extended release 24 hr rosuvastatin 10 mg tablet 10 mg PO QAM 11/11/21 11/11/21 History tirzepatide 5 mg/0.5 mL 5 mg subcut WK 11/11/21 11/11/21 History subcutaneous pen injector (Delmeruneboni) tramadol 50 mg tablet 50 mg PO Q6H PRN migraine pain 11/11/21 11/11/21 History zinc acetate 50 mg (zinc) capsule 50 mg PO QAM 11/11/21 11/11/21 History Patient History Medical History (Updated 11/12/21 @ 12:34 by PRINCE Durham) Anemia no hx of blood transfusion, + hx of iron infusions (09/2018) Anxiety and depression Asthma stable Diabetes mellitus, type 2 diet controlled Hypertension Migraine Morbid obesity Osteoarthritis Uterine bleeding Surgical History (Updated 11/12/21 @ 11:43 by Lottie Moulton RN) H/O bilateral breast reduction surgery History of colonoscopy History of hysterectomy History of laparoscopy FOR ECTOPIC History of tooth extraction Family History Father Family history of diabetes mellitus Mother Family history of diabetes mellitus Grandfather Family history of diabetes mellitus Grandmother Family history of diabetes mellitus Brother Family history of diabetes mellitus Grandfather (Paternal) Family history of esophageal cancer Social History Smoking Status: Never smoker Second Hand Exposure: No; Do You Dip or Chew Tobacco: No; Hx Alcohol Use: Yes Alcohol type: wine and hard liquor Hx Substance Use: No Preferred Language: Danish Communication Ability: Effective Residential Collections Required: No Beliefs That Will Affect Care: None Current Living Situation: Spouse Feels Safe at Home: Yes Safety Concerns: Feels Safe At This Time Assistive Devices: CPAP and Glasses Review of Systems Review of Systems: All systems reviewed & are unremarkable except as noted in HPI & below Physical Exam Constitutional: WD/WN, vitals as above well groomed, cooperative and comfortable Eyes: PERRL, conjunctivae normal, anicteric sclerae ENMT: external ear and nose normal, oropharynx normal Respiratory: normal respiratory effort, lungs clear to auscultation Cardiovascular: RRR, no murmur, no edema Gastrointestinal (Abdomen): Soft, TTP generalized, BS hypoactive Skin: no rashes, warm and dry no jaundice Psychiatric: A+Ox3, euthymic affect Lymphatic: no lymphedema Results & Data ([facility]) Vital Signs (Past 12 Hours) Vital Signs Temp Pulse Pulse Pulse Resp BP BP 11/12/21 11:36 36.8 C 72 18 138/78 11/12/21 09:03 71 16 11/12/21 10:00 75 11/12/21 09:00 74 11/12/21 09:00 117/69 11/12/21 08:00 71 11/12/21 08:00 114/61 11/12/21 07:00 72 11/12/21 07:00 111/61 11/12/21 06:00 73 22 105/61 11/12/21 05:06 71 16 103/60 11/12/21 05:00 72 103/60 11/12/21 04:01 73 24 126/64 11/12/21 03:00 77 25 H 123/72 11/12/21 02:00 81 31 H 132/73 11/12/21 01:00 84 25 H 157/77 H BP Pulse Ox O2 Del Method O2 Flow Rate 11/12/21 11:36 97 Room Air 11/12/21 09:03 114/61 94 11/12/21 10:00 92 11/12/21 09:00 92 11/12/21 09:00 11/12/21 08:00 90 11/12/21 08:00 11/12/21 07:00 91 11/12/21 07:00 11/12/21 06:00 90 Room Air 11/12/21 05:06 90 Room Air 11/12/21 05:00 90 Room Air 11/12/21 04:01 94 Room Air 11/12/21 03:00 96 Room Air 11/12/21 02:00 95 Room Air 11/12/21 01:00 94 Nasal Cannula 2
[2021-11-12] MEDS ORDERED: ceFAZolin 330 MG/ML 1 GM VIAL ONE (12:34)
[2021-11-12] MEDS ORDERED: DEXAMETHASONE SOD INJ 4 MG/ML VIAL ONE (12:34)
[2021-11-12] MEDS ORDERED: ONDANSETRON INJ 2 MG/ML 2 ML VIAL ONE (12:34)
--- NOTE | 2021-11-12 14:02 | Fluoroscopy Report ---
INTRAOPERATIVE RADIOGRAPHS CLINICAL HISTORY: Intraoperative cholangiogram. Fluoroscopy time: 4 seconds. FINDINGS: 4 spot fluoroscopic views of the right upper quadrant from an intraoperative cholangiogram are correlated with abdominal. CT and Ultrasound dated 11/11/2021. There is an ovoid pocket of contras t projecting over the midline at the level of T12. The location is indeterminant. There is no clear o pacification of the biliary tree or bowel. IMPRESSION: Intraoperative images as above. There is no clear opacification of the biliary tree. Electronically signed by: Abdulaziz Silva M.D. 11/12/2021 2:00 PM
[2021-11-12] MEDS ORDERED: SURGICEL ABSORB HEMOSTAT 2IN X 14IN TOP ONE ×2 (14:08→14:12)
[2021-11-12] MEDS ORDERED: NEOSTIGMINE METHYLSULFATE 1 MG/ML 10ML VIAL ONE (14:12)
[2021-11-12] MEDS ORDERED: GLYCOPYRROLATE 0.2 MG/ML VIAL ONE (14:12)
[2021-11-12] MEDS ORDERED: KETOROLAC 30 MG/ML VIAL ONE (14:17)
[2021-11-12] MEDS ORDERED: OPTIRAY 300 IV ONE (14:23)
--- NOTE | 2021-11-12 14:28 | Post Operative Brief Note ---
Immediate Post Op Note v1 Date of Surgery November 12, 2021 Pre & Post Diagnosis Operation Date: 11/12/21 11:50 Pre-Op Diagnosis: Acute acalculous cholecystitis Post-Op Diagnosis: Acute acalculous cholecystitis Operation Date: 11/13/21 07:00 <No data on this case meets the specified criteria> I identified the patient and participated in the time-out.: Yes Procedure Operation Date: 11/12/21 11:50 Actual Procedures p Laparoscopic Cholecystectomy with Cholangiogram(Not Applicable) - Maia Kendrick MD Operation Date: 11/13/21 07:00 <No data on this case meets the specified criteria> Surgeon Maia Kendrick MD Switchboard Inspector JO Delaney Estimated Blood Loss 30 Findings Consistent with Post-Op Diagnosis significant inflammation on gallbladder wall, Fluids 1200ml Specimens gallbladder Anesthesia Type General Complications none Disposition Accompanied Patient To Recovery: Yes
--- NOTE | 2021-11-12 15:46 | Anesthesiology Progress Note ---
Date of Service November 12, 2021 Anesthesia Post Procedure Vital Signs Vital Signs: Temp Pulse Pulse Pulse Resp BP BP 11/12/21 15:35 83 18 112/59 L 11/12/21 15:25 36.9 C 84 16 131/72 11/12/21 15:15 81 22 114/77 11/12/21 15:05 76 24 126/70 11/12/21 14:55 78 21 118/68 11/12/21 14:47 36.4 C L 73 16 116/63 11/12/21 11:36 36.8 C 72 18 138/78 11/11/21 15:51 11/12/21 09:03 71 16 11/12/21 10:00 75 11/12/21 09:00 74 11/12/21 09:00 117/69 11/12/21 08:00 71 11/12/21 08:00 114/61 11/12/21 07:00 72 11/12/21 07:00 111/61 11/12/21 06:00 73 22 105/61 11/12/21 05:06 71 16 103/60 11/12/21 05:00 72 103/60 11/12/21 04:01 73 24 126/64 11/12/21 03:00 77 25 H 123/72 11/12/21 02:00 81 31 H 132/73 11/12/21 01:00 84 25 H 157/77 H 11/12/21 00:00 165/77 H 11/11/21 23:38 158/69 H 11/11/21 22:00 157/101 H 11/11/21 21:00 77 23 142/70 H 11/11/21 20:09 82 20 124/69 11/11/21 15:48 37 C 78 20 140/83 BP Pulse Ox Pulse Ox O2 Del Method O2 Flow Rate 11/12/21 15:35 94 Nasal Cannula 2 11/12/21 15:25 94 Nasal Cannula 2 11/12/21 15:15 95 Nasal Cannula 2 11/12/21 15:05 94 Oxymask 4 11/12/21 14:55 95 Oxymask 6 11/12/21 14:47 94 Oxymask 8 11/12/21 11:36 97 Room Air 11/11/21 15:51 94 11/12/21 09:03 114/61 94 11/12/21 10:00 92 11/12/21 09:00 92 11/12/21 09:00 11/12/21 08:00 90 11/12/21 08:00 11/12/21 07:00 91 11/12/21 07:00 11/12/21 06:00 90 Room Air 11/12/21 05:06 90 Room Air 11/12/21 05:00 90 Room Air 11/12/21 04:01 94 Room Air 11/12/21 03:00 96 Room Air 11/12/21 02:00 95 Room Air 11/12/21 01:00 94 Nasal Cannula 2 11/12/21 00:00 94 Room Air 11/11/21 23:38 94 Room Air 11/11/21 22:00 98 Room Air 11/11/21 21:00 100 Room Air 11/11/21 20:09 100 Room Air 11/11/21 15:48 96 Room Air Pain Intensity Right Upper Abdomen: Pain Intensity: 7 Abdomen: Pain Intensity: 5 Transfer of Care Handoff Completed per policy Notes Mental Status: alert / awake / arousable Patient Amnestic to Procedure: Yes Nausea / Vomiting: adequately controlled Pain: adequately controlled Airway Patency, RR, SpO2: stable & adequate BP & HR: stable & adequate Hydration State: stable & adequate Anesthetic Complications: no major complications apparent
[2021-11-12] MEDS: cloNIDine HCL 0.1 MG TAB PO SCH (20:26)
[2021-11-12] MEDS: oxyCODONE/ACETAMINOPHEN 5mg/325mg TAB PO PRN (21:56)
[2021-11-12] MEDS: MAGNESIUM OXIDE 400 MG TAB PO SCH (21:57)
--- NOTE | 2021-11-12 22:36 | Electrocardiogram Report ---
Test Reason : Blood Pressure : / mmHG Vent. Rate : 075 BPM Atrial Rate : 075 BPM P-R Int : 170 ms QRS Dur : 080 ms QT Int : 380 ms P-R-T Axes : 058 002 042 degrees QTc Int : 424 ms Normal sinus rhythm Normal ECG When compared with ECG of 20-MAR-2019 06:33, No significant change was found Confirmed by Aidan Puckett ([id number]) on 11/12/2021 10:36:00 PM Referred By: REFERRED SELF Confirmed By:Aidan Puckett
--- NOTE | 2021-11-12 22:51 | Operative Report (OR) ---
DATE OF PROCEDURE: 11/12/2021 PREOPERATIVE DIAGNOSES: Acute cholecystitis, cholelithiasis. POSTOPERATIVE DIAGNOSES: Acute cholecystitis, cholelithiasis. OPERATION: Laparoscopic cholecystectomy. SURGEON: Maia Kendrick MD. SIGHT EFFECTS SPECIALIST: Ann Lema PA-C. ANESTHESIA: General. ESTIMATED BLOOD LOSS: About 30 mL. FINDINGS: Significant inflammation of the gallbladder wall, acute cholecystitis. COMPLICATIONS: None. INDICATIONS FOR PROCEDURE: This is a 51-year-old female who presented to ED with a 4-day history of right upper quadrant pain and the patient had an ultrasound diagnosis of acute cholecystitis, cholelithiasis. I recommended to do laparoscopic cholecystectomy, possible open, possible cholangiogram. I did talk to the patient about the benefit, risk, alternate procedure. I indicated the risks may include, but not limited to, such as bleeding, infection, injury to other organs, bile leak, may need ERCP, incisional hernia, myocardial infarction, DVT, stroke, and even . The patient understands. She signed informed consent and I answered all questions. DETAILS OF PROCEDURE: After we identified the patient and verified the procedure, we brought the patient to the OR, put the patient in the supine position on the OR table. The patient received SCD on bilateral legs to prevent DVT. Also, patient received 3 grams of Ancef IV for prophylactic antibiotic. The patient received general anesthesia without difficulty. The abdomen was prepped and draped in routine sterile fashion. After timeout, I injected the local anesthesia by using 1% lidocaine mixed with 0.5% Marcaine just above the umbilicus, then I made a small incision just above umbilicus, opened fascia, opened peritoneum. Under direct vision, put a America trocar in, connected to CO2 to create pneumoperitoneum, flow rate at 6 liters per minute, pressure not more than 14 mmHg. Once we got a nice pneumoperitoneum, we put a camera in, looked around the abdomen, it shows normal finding. However, the gallbladder had significant inflammation, gallbladder wall thickening, edema with some omental adhesions to the gallbladder, confirming the diagnosis of acute cholecystitis. The gallbladder had significant distention. At this moment, we put another two 5 mm trocars in the right upper quadrant, one 12 trocar in the epigastric area. Once all trocars in, we used the grasper to peel down the omental adhesions to the gallbladder, and again the gallbladder had significant distention and inflammation. We used a larger needle to decompress the gallbladder first and then we used a grasper to hold the base of gallbladder, put in the direction to the diaphragm, another grasper to hold the pouch of gallbladder, put a lateral to try to explore the triangle of Calot; however, due to significant inflammation, at this moment, we decided to use intraoperative cholangiogram. We used the Collins technique. Injected 40 mL of contrast dye through the gallbladder. Then, we took an x-ray, which showed the gallbladder; however, no contrast was going through common bile duct, possible cystic duct blockage with bile stones. At this moment, we removed the Collins clamp and used another grasper to hold the pouch of gallbladder, put a lateral to explore the triangle of Calot. The cystic duct was identified and mobilized. I put two 10 mm metal clips on the proximal cystic duct, one on the distal cystic duct, then used a scissor for transection of cystic duct; rechecked, no active bleeding and based on the cystic duct with significant inflammation and edema and very fragile, it was not feasible to do the cholangiogram at this moment through the cystic duct. So, the cystic artery was identified and mobilized. I put two 5 mm metal clips on the proximal cystic artery, one on the distal cystic artery, then used a scissor for transection of cystic artery; rechecked, no active bleeding. Then, we used the Bovie to take down the gallbladder from liver bed. At this moment, we removed gallbladder through the catch bag. Then, we reinserted the America trocar in, connected to CO2 to create pneumoperitoneum, again looked around the abdomen. The liver bed still had some blood oozing because of significant inflammation. At this moment, we chose a 2- piece of the Surgicel to put on the liver bed; rechecked, no active bleeding and then we removed all trocars under direct vision. No active bleeding from the trocar sites. Pneumoperitoneum was released, then I closed the umbilical incision fascial layer by using 0 Vicryl [id number] x2, closed subcutaneous layer by using 2-0 Vicryl interruptedly, closed skin by using 4-0 Vicryl continuous running, closed the epigastric incision fascial layer by using 0 Vicryl [id number] x2, closed subcutaneous layer by using 2-0 Vicryl interruptedly, closed skin by using 4-0 Vicryl interruptedly, closed another two 5 mm trocar site of skin only by using 4-0 Vicryl. Then, we put the dressing on. The patient tolerated the procedure well. All instrument, needle and sponge counts were correct x2 at the end of the case. The patient was transferred to recovery room in stable condition. The specimen was sent to pathology. After the procedure, I did talk to the patient and the patient's family member about the OR finding and the procedure we did, they understand. The producer assistant, Ann, was necessary for this procedure. Her role was to hold the camera, retraction and exposure. Job ID: [id number] [facility]
[2021-11-13] MEDS: PIPERACILLIN/TAZOBACTAM 3.375 GM in DEXTROSE 5% 100 ML IV SCH ×3 (03:30→18:35)
[2021-11-13] MEDS: LACTATED RINGER'S 1,000 ML IV SCH ×3 (03:31→20:09)
[2021-11-13] MEDS: HYDROmorphone INJ 1 MG/ML SYRINGE IV PRN ×2 (05:04→11:41)
[2021-11-13] MEDS ORDERED: INDOMETHACIN 50 MG SUPP PR SCH (06:00)
[2021-11-13 07:44] LABS: Basophils # (auto) 0.05 K/uL (0-0.2); Basophils % (auto) 0.3 %; Eosinophils # (auto) 0.19 K/uL (0-0.50); Eosinophils % (auto) 1.3 %; Hematocrit (blood only) 35.3 % (34.1-44.9); Hemoglobin 11.2 g/dl (12.0-16.0); Immature Granulocytes # (auto) 0.08 K/uL (0.00-0.02); Immature Granulocytes % (auto) 0.5 %; Lymphocytes % (auto) 8.9 %; Mean Corpuscular Hemoglobin 25.5 pg (25.0-34.0); Mean Corpuscular Hgb Conc 31.7 g/dL (32.0-36.0); Mean Corpuscular Volume 80.4 fL (80.0-100.0); Mean Platelet Volume 11.5 fL (9.4-12.3); Monocytes # (auto) 1.21 K/uL (0.24-0.82); Monocytes % (auto) 8.2 %; Neutrophils # (auto) 11.85 K/uL (1.4-6.5); Neutrophils % (auto) 80.8 %; Platelet Count 397 K/uL (130-400); RDW Coefficient of Variation 15.1 % (11.5-14.5); RDW Standard Deviation 44.1 fL (36.4-46.3); Red Blood Count 4.39 M/uL (3.93-5.22); White Blood Count 14.68 K/ul (4.8-10.8)
[2021-11-13 08:15] LABS: Albumin Globulin Ratio 0.9 (0.9-2); Albumin Level 3.5 gm/dl (3.4-5.0); BUN Creatinine Ratio 13.3 (10-20); Bilirubin,Total 2.9 mg/dl (0.2-1.0); Calcium 8.5 mg/dl (8.5-10.1); Creatinine Clr Calc Pharmacy 166.7 ml/min; Est GFR (African American) 123.2 ml/min; Est GFR (Non-African American) 106.3 ml/min; Globulin 3.7 gm/dl (2.5-4.0); Potassium 3.6 mmol/L (3.5-5.1); Total Protein 7.2 gm/dl (6.0-8.3)
--- NOTE | 2021-11-13 08:54 | Surgery Progress Note ---
Date of Service November 13, 2021 Assessment & Plan (1) Acute acalculous cholecystitis: Plan: pt is a 51 year-old female who presents with 4 days history RUQ pain with nausea and vomiting, IMP: acute cholecystitis, Plan, admit to hospital, U/S study gallbladder, NPO IV fluid, IV antibiotic, control pain, repeat labs in morning, I recommend to do laparoscopic cholecystectomy, possible open or cholangiogram, tomorrow, D/W benefits, risks and alternatives of the surgery, the risks - infection, bleeding, injury other organs, may need ERCP, incisional hernia, DVT, CO, stroke, , pt understood, she agrees with surgery, I answered all questions, 11/13/2021 8:52AM F/U S/P lap clarke, POD 1 pt is doing fine, no significant abdominal pain, pt will have ERCP today, continue treatment, will F/U, Admission and Anticipated Discharge Date Admission Date: November 11, 2021 Subjective F/U S/P lap clarke, POD 1 pt is doing fine, no significant abdominal pain, no nausea, no vomiting, no fever, pt will have ERCP today, Physical Exam Eyes: PERRL, conjunctivae normal, anicteric sclerae Neck: trachea midline, no thyromegaly Respiratory: normal respiratory effort, lungs clear to auscultation Cardiovascular: RRR, no murmur, no edema Gastrointestinal (Abdomen): soft, mild tenderness at incision sites, no rebound pain, all incisions intact, no redness, BS +, Musculoskeletal: no cyanosis or clubbing, extremities motor strength 5/5 Neurologic: patellar DTR's 2+ bilat, sensation intact Psychiatric: A+Ox3, euthymic affect Results & Data ([facility]) Vital Signs (Past 12 Hours) Vital Signs Temp Pulse Resp BP BP Pulse Ox O2 Del Method 11/13/21 07:40 36.6 C 72 18 120/75 92 11/13/21 03:30 36.8 C 76 18 101/63 96 Nasal Cannula 11/12/21 22:34 36.6 C 76 18 98/58 L 96 O2 Flow Rate 11/13/21 07:40 11/13/21 03:30 2 11/12/21 22:34 Laboratory Results Abnormal lab results 11/12/21 11/12/21 11/12/21 Range/Units 11:38 14:49 16:52 WBC (4.8-10.8) K/ul Hgb (12.0-16.0) g/dl MCHC (32.0-36.0) g/dL RDW Coeff of Nitin (11.5-14.5) % Neut # (Auto) (1.4-6.5) K/uL [place] # (Auto) (0.24-0.82) K/uL Immature Gran # (Auto) (0.00-0.02) K/uL Sodium (136-145) mmol/L Glucose (70-99(Fasting)) mg/dl POC Glucose 107 H 152 H 127 H (70-99) mg/dl Total Bilirubin (0.2-1.0) mg/dl AST (13-39) U/L ALT (7-52) U/L Alkaline Phosphatase (34-104) U/L 11/12/21 11/13/21 11/13/21 Range/Units 21:05 07:21 07:21 WBC 14.68 H (4.8-10.8) K/ul Hgb 11.2 L (12.0-16.0) g/dl MCHC 31.7 L (32.0-36.0) g/dL RDW Coeff of Nitin 15.1 H (11.5-14.5) % Neut # (Auto) 11.85 H (1.4-6.5) K/uL [place] # (Auto) 1.21 H (0.24-0.82) K/uL Immature Gran # (Auto) 0.08 H (0.00-0.02) K/uL Sodium 133 L (136-145) mmol/L Glucose 104 H (70-99(Fasting)) mg/dl POC Glucose 149 H (70-99) mg/dl Total Bilirubin 2.9 H D (0.2-1.0) mg/dl AST 177 H (13-39) U/L ALT 162 H (7-52) U/L Alkaline Phosphatase 246 H (34-104) U/L 11/13/21 Range/Units 08:21 WBC (4.8-10.8) K/ul Hgb (12.0-16.0) g/dl MCHC (32.0-36.0) g/dL RDW Coeff of Nitin (11.5-14.5) % Neut # (Auto) (1.4-6.5) K/uL [place] # (Auto) (0.24-0.82) K/uL Immature Gran # (Auto) (0.00-0.02) K/uL Sodium (136-145) mmol/L Glucose (70-99(Fasting)) mg/dl POC Glucose 100 H (70-99) mg/dl Total Bilirubin (0.2-1.0) mg/dl AST (13-39) U/L ALT (7-52) U/L Alkaline Phosphatase (34-104) U/L
[2021-11-13] MEDS: PANTOprazole 40 MG TAB PO SCH (09:29)
[2021-11-13] MEDS ORDERED: FAMOTIDINE 20 MG in SYRINGE 3 ML IV ONE (09:39)
--- NOTE | 2021-11-13 09:43 | Gastroenterology Progress Note ---
Date of Service November 13, 2021 Assessment & Plan (1) Cholecystitis with cholelithiasis: Plan: Pt is a 51 yo female admitted with cholecystitis, cholelithiasis, noted to have leukocytosis and increased Tbili concerning for possible biliary obstruction 11/12: lap clarke LFTs similarly elevated, WBC decreased. She is complaining of abdominal pain after her surgery, also increased acid reflux and - Protonix 40 mg daily, add famotidine 20 mg IV injection x1 dose now - Keep n.p.o., plan for EUS/ERCP by Dr. Roman in the OR today - Continue Zosyn IV - Trend LFTs - Symptomatic management otherwise - GI will give further recommendations after her EUS/ERCP Admission and Anticipated Discharge Date Admission Date: November 11, 2021 Supervising Physician Co-Signing Physician Notes I performed a history and physical examination of the patient today, including specifically on physical exam - soft abdomen. I have discussed the patient's management with the advanced practitioner. Please refer to the nurse practitioner's note for the documented findings and plan of care. EUS/ERCP Patient was explained in detail regarding risks, benefits, limitations and alternatives of the above endoscopic procedure. Risks of intravenous sedation used for procedure were also explained. Risks include, but not limited to perforation, bleeding, infection, respiratory distress, cardiac arrest and . Patient is also aware about the possibility of missed lesion. Patient's questions were answered. The patient verbalized understanding the information and agreed to undergo the procedure. Subjective Patient is status post laparoscopic cholecystectomy yesterday. She reports that she is having generalized abdominal tenderness, also increased acid reflux symptoms. Is belching, not passing much flatus, no nausea or vomiting. Review of Systems Review of Systems: All systems reviewed & are unremarkable except as noted in HPI & below Physical Exam Constitutional: WD/WN, vitals as above well groomed, cooperative and comfortable Eyes: PERRL, conjunctivae normal, anicteric sclerae ENMT: external ear and nose normal, oropharynx normal Respiratory: normal respiratory effort, lungs clear to auscultation Cardiovascular: RRR, no murmur, no edema Gastrointestinal (Abdomen): Abdomen is soft, bowel sounds hypoactive, cholecystectomy surgical sites covered with dressing without breakthrough bleeding or discharge noted Skin: no rashes, warm and dry no jaundice Psychiatric: A+Ox3, euthymic affect Lymphatic: no lymphedema Results & Data ([facility]) Vital Signs (Past 12 Hours) Vital Signs Temp Pulse Resp BP BP Pulse Ox O2 Del Method 11/13/21 07:40 36.6 C 72 18 120/75 92 11/13/21 03:30 36.8 C 76 18 101/63 96 Nasal Cannula 11/12/21 22:34 36.6 C 76 18 98/58 L 96 O2 Flow Rate 11/13/21 07:40 11/13/21 03:30 2 11/12/21 22:34
[2021-11-13] MEDS ORDERED: LIDOCAINE 2% MPF LOCAL 5 ML VIAL INFIL ONE ×2 (14:27→16:16)
[2021-11-13] MEDS ORDERED: ROCURONIUM BROMIDE 10 MG/ML 5 ML VIAL IV ONE (14:27)
[2021-11-13] MEDS ORDERED: PROPOFOL IV EMULSION 10 MG/ML 20 ML VIAL IV ONE ×2 (14:27→14:29)
[2021-11-13] MEDS ORDERED: DEXAMETHASONE SOD INJ 4 MG/ML VIAL ONE (14:27)
[2021-11-13] MEDS ORDERED: fentaNYL citrate 100 MCG/2 ML VIAL ONE ×2 (14:27→16:42)
[2021-11-13] MEDS ORDERED: MIDAZOLAM HCL 1 MG/ML 2ML VIAL ONE (14:27)
[2021-11-13] MEDS ORDERED: ONDANSETRON INJ 2 MG/ML 2 ML VIAL ONE ×2 (14:27→16:42)
[2021-11-13] MEDS ORDERED: ONDANSETRON INJ 2 MG/ML 2 ML VIAL IV PRN (14:45)
[2021-11-13] MEDS ORDERED: ATROPINE SULFATE 0.1 MG/ML 10ML SYR IV PRN (14:45)
[2021-11-13] MEDS ORDERED: HYDROmorphone INJ 1 MG/ML SYRINGE IV PRN (14:45)
--- NOTE | 2021-11-13 15:03 | Anesthesiology Consultation ---
Date of Service November 13, 2021 Assessment & Plan (1) Encounter for pre-operative examination: Chart Review Chart Review: Acceptable Risk for Surgery and Patient NOT seen in Pre Admission Testing Consults Requested none History Surgery Operation Date: 11/12/21 11:50 Proposed Procedures p Laparoscopic Cholecystectomy - Maia Kendrick MD Operation Date: 11/13/21 07:00 Proposed Procedures p Endoscopic Retrograde Cholangiopancreatogram - Reny Roman MD s Endoscopic Ultrasonography Upper - Reny Roman MD Height/Weight Height: 5 ft 9 in Weight: 136.1 kg Allergies Allergy/AdvReac Type Severity Reaction Status Date / Time guaifenesin [From Entex LA] Allergy Severe Anaphylaxis Verified 11/12/21 11:39 phenylephrine [From Entex LA] Allergy Severe Anaphylaxis Verified 11/12/21 11:39 phenylpropanolamine Allergy Severe Anaphylaxis Verified 11/12/21 11:39 [From Entex LA] adhesive Allergy Intermediate Hives Verified 11/12/21 11:39 latex Allergy Intermediate Hives Verified 11/12/21 11:39 aspirin Allergy Unknown does not Verified 11/12/21 11:39 take because "father was allergic" to ASA Medications Home Medications Medication Instructions Recorded Confirmed Last Taken albuterol sulfate 90 mcg/actuation 2 puff inhalation Q4 PRN Shortness 03/19/19 11/11/21 09/08/19 aerosol inhaler Of Breath Or cough buspirone 30 mg tablet 30 mg PO QAM 11/11/21 11/11/21 11/11/21 clonidine HCl 0.1 mg tablet 0.1 mg PO HS 11/11/21 11/11/21 11/10/21 ergocalciferol (vitamin D2) 1,250 1,250 mcg PO WK 11/11/21 11/11/21 11/09/21 mcg (50,000 unit) capsule ferrous sulfate 325 mg (65 mg 325 mg PO QAM 11/11/21 11/11/21 11/11/21 iron) tablet (iron) fluoxetine 20 mg capsule 20 mg PO QAM 11/11/21 11/11/21 11/11/21 fluoxetine 40 mg capsule 40 mg PO QAM 11/11/21 11/11/21 11/11/21 lorazepam 0.5 mg tablet 0.5 mg PO HS PRN Sleep 11/11/21 11/11/21 Unknown losartan 50 mg-hydrochlorothiazide 1 tab PO QAM 11/11/21 11/11/21 11/11/21 12.5 mg tablet magnesium 500 mg tablet 500 mg PO HS 11/11/21 11/11/21 11/10/21 meloxicam 15 mg tablet 15 mg PO QAM 11/11/21 11/11/21 11/11/21 xenknwcdymfn-Mw-gegk-minerals 1 tab PO DAILY 11/11/21 11/11/21 11/11/21 olopatadine 0.1 % eye drops 1 drp ophthalmic (eye) BID 11/11/21 11/11/21 Unknown omeprazole 20 mg capsule,delayed 20 mg PO QAM 11/11/21 11/11/21 11/11/21 release oxybutynin chloride 5 mg 5 mg PO QAM 11/11/21 11/11/21 11/11/21 tablet,extended release 24 hr rosuvastatin 10 mg tablet 10 mg PO QAM 11/11/21 11/11/21 11/11/21 tirzepatide 5 mg/0.5 mL 5 mg subcut WK 11/11/21 11/11/21 11/09/21 subcutaneous pen injector (Kathy) tramadol 50 mg tablet 50 mg PO Q6H PRN migraine pain 11/11/21 11/11/21 Unknown zinc acetate 50 mg (zinc) capsule 50 mg PO QAM 11/11/21 11/11/21 11/11/21 Active Medications Generic Name Dose Route Start Last Admin Trade Name Yan PRN Reason Stop Dose Admin Buspirone HCl 30 mg 11/12/21 09:00 11/12/21 09:29 Buspirone 15 Mg Tab PO 12/12/21 08:59 30 mg QAM MARKO Administration Clonidine HCl 0.1 mg 11/12/21 21:00 11/12/21 20:26 Clonidine Hcl 0.1 Mg Tab PO 12/12/21 20:59 0.1 mg HS MARKO Administration Fluoxetine HCl 60 mg 11/12/21 09:00 11/12/21 09:29 Fluoxetine Hcl 20 Mg Cap PO 12/12/21 08:59 60 mg QAM MARKO Administration HCTZ/Losartan Potassium 1 tab 11/12/21 09:00 11/12/21 09:29 Losartan/Hctz 50/12.5mg Tab PO 12/12/21 08:59 1 tab QAM MARKO Administration Hydromorphone HCl 1 mg 11/12/21 00:05 11/13/21 11:41 Hydromorphone Inj 1 Mg/Ml Syringe IV 11/26/21 00:04 1 mg Q6H PRN Administration Pain Lactated Ringer's 1,000 mls @ 100 mls/hr 11/12/21 00:05 11/13/21 12:25 Lr IV 12/12/21 00:04 100 mls/hr .Q10H MARKO Administration Piperacillin Sod/Tazobactam 115 mls @ 28.75 mls/hr 11/12/21 02:00 11/13/21 12:10 Sod 3.375 gm/ Dextrose IV 11/22/21 01:59 28.8 mls/hr Q8H MARKO Administration Protocol Magnesium Oxide 800 mg 11/12/21 21:00 11/12/21 21:57 Magnesium Oxide 400 Mg Tab PO 12/12/21 20:59 800 mg HS MARKO Administration Miscellaneous 1 each 11/12/21 08:00 11/13/21 07:30 Olopatadine 0.1%: Order Awaiting Action N/A 12/12/21 07:59 Not Given QS MARKO Miscellaneous 1 each 11/12/21 08:00 11/13/21 07:30 Tirzepatide [Mounjaro]: Order Awaiting Action N/A 12/12/21 07:59 Not Given QS MARKO Oxybutynin Chloride 5 mg 11/12/21 09:00 11/12/21 09:29 Oxybutynin Chloride Xl 5 Mg Tabcr PO 12/12/21 08:59 5 mg QAM MARKO Administration Oxycodone/Acetaminophen 1 tab 11/12/21 00:05 11/12/21 21:56 Oxycodone/Acetaminophen 5mg/325mg Tab PO 11/26/21 00:04 1 tab Q4H PRN Administration Pain Pantoprazole Sodium 40 mg 11/12/21 09:00 11/13/21 09:29 Pantoprazole 40 Mg Tab PO 12/12/21 08:59 40 mg QAM MARKO Administration Rosuvastatin Calcium 10 mg 11/12/21 09:00 11/12/21 10:08 Rosuvastatin Calcium 10 Mg Tab PO 12/12/21 08:59 Not Given QAM MARKO Zinc Sulfate 220 mg 11/12/21 09:00 11/12/21 10:09 Zinc Sulfate 220 Mg Capsule PO 12/12/21 08:59 Not Given QAM MARKO NPO Date Last Intake of Fluids: 11/12/21 Time Last Intake of Fluids: 22:00 Date Last Intake of Solids: 11/10/21 Time Last Intake of Solids: 20:00 Past Medical History Medical History Anemia no hx of blood transfusion, + hx of iron infusions (09/2018) Anxiety and depression Asthma stable Diabetes mellitus, type 2 diet controlled Hypertension Migraine Morbid obesity Osteoarthritis Uterine bleeding Past Family History Family History Father Family history of diabetes mellitus Mother Family history of diabetes mellitus Grandfather Family history of diabetes mellitus Grandmother Family history of diabetes mellitus Brother Family history of diabetes mellitus Grandfather (Paternal) Family history of esophageal cancer Past Surgical History Surgical History H/O bilateral breast reduction surgery History of colonoscopy History of hysterectomy History of laparoscopy FOR ECTOPIC History of tooth extraction Past Anesthesia History No Hx of Anesthesia Complications and No Family Hx of Anesthesia Complications History of PONV No Hx of PONV and No Hx of Motion Sickness Social History Smoking Status: Never smoker Do You Dip or Chew Tobacco: No Hx Alcohol Use: Yes Alcohol type: wine and hard liquor alcohol intake frequency: a few times a month Hx Substance Use: No Physical Exam Vital Signs Last Vital Signs Temp 37.1 C 11/13/21 14:36 Pulse 83 11/13/21 14:36 Resp 18 11/13/21 14:36 BP 132/74 11/13/21 14:36 Pulse Ox 95 11/13/21 14:36 O2 Del Method 11/13/21 14:36 O2 Flow Rate 2 11/13/21 03:30 Testing Laboratory Results 11/13/21 07:21 11/13/21 07:21 PT 11.4 Seconds (9.0-12.0) 11/11/21 17:56 INR 1.1 (0.9-1.1) 11/11/21 17:56 Urine Color Yellow 11/11/21 20:50 Urine Appearance Clear (Clear) 11/11/21 20:50 Urine pH 5.5 (4.5-7.5) 11/11/21 20:50 Ur Specific [place] > 1.045 (1.000-1.030) H 11/11/21 20:50 Urine Protein Trace (Negative) H 11/11/21 20:50 Urine Glucose (UA) Negative (Negative) 11/11/21 20:50 Urine Ketones Negative (Negative) 11/11/21 20:50 Urine Nitrite Negative (Negative) 11/11/21 20:50 Ur Leukocyte Esterase 1+ (Negative) H 11/11/21 20:50 Urine WBC (Auto) 5-10 /hpf (0-5) H 11/11/21 20:50 Urine RBC (Auto) 10-30 /hpf (0-4) H 11/11/21 20:50 U Hyaline Cast (Auto) 1-5 /lpf (0-5) 11/11/21 20:50 U Epithel Cells (Auto) >30 /lpf (0-5) H 11/11/21 20:50 Urine Bacteria (Auto) 2+ (Negative) H 11/11/21 20:50 Urine Test Negative (Negative) 11/11/21 20:50 11/11/21 20:50 Urine Culture - Final Urine,Clean Catch Three types of organisms present, all high counts probable skin mann. No further identifications or sensitivities to follow. 11/13/21 11/13/21 12:01 08:21 POC Glucose 94 100 H 11/11/21 20:50 Urine Test Negative
[2021-11-13] MEDS ORDERED: ALBUTEROL HFA INHALER 8.5 GM ONE (15:05)
--- NOTE | 2021-11-13 16:39 | Operative Report ---
Post Operative Report Pre & Post Diagnosis Operation Date: 11/12/21 11:50 Pre-Op Diagnosis: Acute acalculous cholecystitis Post-Op Diagnosis: Acute acalculous cholecystitis Operation Date: 11/13/21 07:00 Pre-Op Diagnosis: Common bile duct stone Post-Op Diagnosis: Common bile duct stone I identified the patient and participated in the time-out.: Yes Procedure Operation Date: 11/12/21 11:50 Actual Procedures p Laparoscopic Cholecystectomy with Cholangiogram(Not Applicable) - Maia Kendrick MD Operation Date: 11/13/21 07:00 Actual Procedures p Endoscopic Ultrasonography Upper(Not Applicable) - Reny Roman MD s Endoscopic Retrograde Cholangiopancreatogram, Stent Placement(Not Applicable) - Reny Roman MD s Esophagogastroduodenoscopy(Bilateral) - Reny Roman MD Surgeon Reny Roman MD Wood Crafter JO Delaney Estimated Blood Loss 0 Findings See Below (CBD stone with cholangitis, stent placed) Specimens None Description of Procedure ERCP I attest to the content of the Intraoperative Record and any orders documented therein. Any exceptions are noted below.
--- NOTE | 2021-11-13 16:47 | GI REPORT ---
Patient Name: Roxi Huerta Procedure Date: 11/13/2021 3:56 PM Date of : 1970 Admit Type: Inpatient Age: 51 Gender: Female Attending MD: Reny Roman MD Procedure: Upper EUS Providers: Reny Roman MD Referring MD: Ari Shea Md Indications: Elevated liver enzymes, Suspected choledocholithiasis Medicines: General Anesthesia Complications: No immediate complications. Estimated Blood Loss: Estimated blood loss: none. Procedure: Pre-Anesthesia Assessment: - Prior to the procedure, a History and Physical was performed, and patient medications, allergies and sensitivities were reviewed. The patient's tolerance of previous anesthesia was reviewed. - The risks and benefits of the procedure and the sedation options and risks were discussed with the patient. All questions were answered and informed consent was obtained. - Patient identification and proposed procedure were verified prior to the procedure by the physician and the nurse. The procedure was verified in the procedure room. - Pre-procedure physical examination revealed no contraindications to sedation. After obtaining informed consent, the endoscope was passed under direct vision. Throughout the procedure, the patient's blood pressure, pulse, and oxygen saturations were monitored continuously. The Endosonoscope was introduced through the mouth, and advanced to the second part of duodenum. The upper EUS was accomplished without difficulty. The patient tolerated the procedure well. Findings: ENDOSONOGRAPHIC FINDING: : One stone was visualized endosonographically in the common bile duct. The stone was round. It was hyperechoic and characterized by shadowing. The duct was nondilated. Impression: - One stone was visualized endosonographically in the common bile duct. - No specimens collected. Recommendation: - Perform an ERCP today. Reny Roman MD 11/13/2021 4:46:49 PM This report has been signed electronically. Note Initiated On: 11/13/2021 3:56 PM Number of Addenda: 0 I attest to the content of the Intraoperative Record and orders documented therein, exceptions below {[id number]}
--- NOTE | 2021-11-13 16:53 | GI REPORT ---
Patient Name: Roxi Huerta Procedure Date: 11/13/2021 4:11 PM Date of : 1970 Admit Type: Inpatient Age: 51 Gender: Female Attending MD: Reny Roman MD Procedure: ERCP Providers: Reny Roman MD Referring MD: Ari Shea Md Indications: For therapy of bile duct stone(s) Medicines: General Anesthesia Complications: No immediate complications. Estimated Blood Loss: Estimated blood loss: none. Procedure: Pre-Anesthesia Assessment: - Prior to the procedure, a History and Physical was performed, and patient medications, allergies and sensitivities were reviewed. The patient's tolerance of previous anesthesia was reviewed. - The risks and benefits of the procedure and the sedation options and risks were discussed with the patient. All questions were answered and informed consent was obtained. - Patient identification and proposed procedure were verified prior to the procedure by the physician and the nurse. The procedure was verified in the procedure room. - Pre-procedure physical examination revealed no contraindications to sedation. After obtaining informed consent, the scope was passed under direct vision. Throughout the procedure, the patient's blood pressure, pulse, and oxygen saturations were monitored continuously. The Duodenoscope was introduced through the mouth, and advanced to the duodenum and used to inject contrast into the bile duct. The ERCP was accomplished without difficulty. The patient tolerated the procedure well. Findings: A microsoft systems engineer film of the abdomen was obtained. Surgical clips, consistent with a previous cholecystectomy, were seen in the area of the right upper quadrant of the abdomen. The esophagus was successfully intubated under direct vision. The scope was advanced to a normal major papilla in the descending duodenum without detailed examination of the pharynx, larynx and associated structures, and upper GI tract. The upper GI tract was grossly normal. A 0.025 inch x 270 cm angled Visiglide wire was passed into the biliary tree. The CleverRusst distal wire sphincterotome was passed over the guidewire and the bile duct was then deeply cannulated. Contrast was injected. I personally interpreted the bile duct images. Ductal flow of contrast was adequate. Image quality was adequate. Contrast extended to the main bile duct. Opacification of the entire biliary tree except for the gallbladder was successful. The maximum diameter of the ducts was 8 mm. Biliary sphincterotomy was made with a monofilament traction (standard) sphincterotome using ERBE electrocautery. There was no post-sphincterotomy bleeding. The biliary tree was swept with an 11.5 mm balloon starting at the bifurcation. Sludge was swept from the duct. One stone was removed. No stones remained. One 10 Fr by 7 cm plastic biliary stent with a single external flap and a single internal flap was placed into the common bile duct. Bile flowed through the stent. The stent was in good position. Indomethacin 100 mg was given via suppository to decrease the risk of post-ERCP pancreatitis (PEP). There was a small mucosal disruption near the incisura, this was closed using two hemostatic endoclips. Impression: - Choledocholithiasis was found. Complete removal was accomplished by biliary sphincterotomy and balloon extraction. - One plastic biliary stent was placed into the common bile duct. Recommendation: - Return patient to [facility] for ongoing care. - Clear liquid diet. - Repeat ERCP in 6 weeks to remove stent. - Return to referring physician. Reny Roman MD 11/13/2021 4:53:23 PM This report has been signed electronically. Note Initiated On: 11/13/2021 4:11 PM Number of Addenda: 0 I attest to the content of the Intraoperative Record and orders documented therein, exceptions below {[id number]}
[2021-11-13] MEDS: fentaNYL citrate 100 MCG/2 ML VIAL IV PRN ×4 (17:04→17:19)
--- NOTE | 2021-11-13 17:31 | Anesthesiology Progress Note ---
Date of Service November 13, 2021 Anesthesia Post Procedure Vital Signs Vital Signs: Temp Pulse Resp BP BP Pulse Ox O2 Del Method 11/13/21 17:15 82 16 166/83 H 95 Nasal Cannula 11/13/21 17:05 85 16 155/87 H 95 Oxymask 11/13/21 16:55 83 16 162/84 H 96 Oxymask 11/13/21 16:49 36.0 C L 87 16 153/88 H 95 Oxymask 11/13/21 14:36 37.1 C 83 18 132/74 95 Room Air 11/13/21 07:40 36.6 C 72 18 120/75 92 11/13/21 03:30 36.8 C 76 18 101/63 96 Nasal Cannula 11/12/21 22:34 36.6 C 76 18 98/58 L 96 11/12/21 18:50 36.4 C L 87 16 102/66 93 Nasal Cannula 11/12/21 18:42 Nasal Cannula 11/12/21 17:50 36.8 C 85 16 111/65 92 Nasal Cannula O2 Flow Rate 11/13/21 17:15 4 11/13/21 17:05 5 11/13/21 16:55 8 11/13/21 16:49 8 11/13/21 14:36 11/13/21 07:40 11/13/21 03:30 2 11/12/21 22:34 11/12/21 18:50 2 11/12/21 18:42 2 11/12/21 17:50 2 Pain Intensity Right Upper Abdomen: Pain Intensity: 7 Abdomen: Pain Intensity: 5 Transfer of Care Handoff Completed per policy Notes Mental Status: alert / awake / arousable and participated in evaluation Patient Amnestic to Procedure: Yes Nausea / Vomiting: adequately controlled Pain: adequately controlled Airway Patency, RR, SpO2: stable & adequate BP & HR: stable & adequate Hydration State: stable & adequate Anesthetic Complications: no major complications apparent and Pt Satisfied with anesthetic care
[2021-11-13] MEDS: ROSUVASTATIN CALCIUM 10 MG TAB PO SCH (18:07)
[2021-11-13] MEDS: busPIRone 15 MG TAB PO SCH (18:07)
[2021-11-13] MEDS: LOSARTAN/HCTZ 50/12.5MG TAB PO SCH (18:07)
[2021-11-13] MEDS: FLUoxetine HCL 20 MG CAP PO SCH (18:07)
[2021-11-13] MEDS: ZINC SULFATE 220 MG CAPSULE PO SCH (18:07)
[2021-11-13] MEDS: MAGNESIUM OXIDE 400 MG TAB PO SCH (18:07)
[2021-11-13] MEDS: FERROUS SULFATE 325 MG TAB PO SCH (18:07)
[2021-11-13] MEDS: OXYBUTYNIN CHLORIDE XL 5 MG TABCR PO SCH (18:08)
[2021-11-13] MEDS: cloNIDine HCL 0.1 MG TAB PO SCH (20:13)
--- NOTE | 2021-11-13 22:07 | Fluoroscopy Report ---
[place] ERCP biliary ductal CLINICAL HISTORY: ADD ON ERCP IN OR COMPARISON STUDY: CT of the abdomen and pelvis and right upper quadrant ultrasound November 11 2. FLUOROSCOPY TIME: 42 seconds. FLUOROSCOPIC IMAGES: 7 FINDINGS: Fluoroscopy was provided during ERCP. Common bile duct was cannulated. Balloon sweep throug h the common bile duct was performed. Biliary stent was placed. IMPRESSION: Fluoroscopy provided during ERCP with placement of a biliary stent. ACT 112: Negative or not required by law. Electronically signed by: Fabricio Bermudez M.D. 11/13/2021 10:05 PM
[2021-11-14] MEDS: PIPERACILLIN/TAZOBACTAM 3.375 GM in DEXTROSE 5% 100 ML IV SCH ×2 (01:43→10:16)
[2021-11-14] MEDS: LACTATED RINGER'S 1,000 ML IV SCH (05:39)
[2021-11-14] MEDS: PANTOprazole 40 MG TAB PO SCH (06:38)
[2021-11-14] MEDS: oxyCODONE/ACETAMINOPHEN 5mg/325mg TAB PO PRN (06:45)
[2021-11-14] MEDS: OXYBUTYNIN CHLORIDE XL 5 MG TABCR PO SCH (08:24)
[2021-11-14] MEDS: ZINC SULFATE 220 MG CAPSULE PO SCH (08:24)
[2021-11-14] MEDS: busPIRone 15 MG TAB PO SCH (08:25)
[2021-11-14] MEDS: LOSARTAN/HCTZ 50/12.5MG TAB PO SCH (08:25)
[2021-11-14] MEDS: FLUoxetine HCL 20 MG CAP PO SCH (08:25)
[2021-11-14] MEDS: ROSUVASTATIN CALCIUM 10 MG TAB PO SCH (08:25)
[2021-11-14] MEDS: FERROUS SULFATE 325 MG TAB PO SCH (08:25)
[2021-11-14 08:47] LABS: Basophils # (auto) 0.03 K/uL (0-0.2); Basophils % (auto) 0.2 %; Eosinophils # (auto) 0.47 K/uL (0-0.50); Eosinophils % (auto) 3.6 %; Hematocrit (blood only) 32.2 % (34.1-44.9); Hemoglobin 10.2 g/dl (12.0-16.0); Immature Granulocytes # (auto) 0.07 K/uL (0.00-0.02); Immature Granulocytes % (auto) 0.5 %; Lymphocytes # (auto) 1.55 K/uL (1.2-3.4); Lymphocytes % (auto) 11.9 %; Mean Corpuscular Hemoglobin 25.8 pg (25.0-34.0); Mean Corpuscular Hgb Conc 31.7 g/dL (32.0-36.0); Mean Corpuscular Volume 81.5 fL (80.0-100.0); Mean Platelet Volume 11.7 fL (9.4-12.3); Monocytes # (auto) 0.84 K/uL (0.24-0.82); Monocytes % (auto) 6.5 %; Neutrophils # (auto) 10.06 K/uL (1.4-6.5); Neutrophils % (auto) 77.3 %; Platelet Count 369 K/uL (130-400); RDW Standard Deviation 44.4 fL (36.4-46.3); Red Blood Count 3.95 M/uL (3.93-5.22); White Blood Count 13.02 K/ul (4.8-10.8)
--- NOTE | 2021-11-14 08:51 | Gastroenterology Progress Note ---
Date of Service November 14, 2021 Assessment & Plan (1) Cholecystitis with cholelithiasis: Plan: Pt is a 51 yo female admitted with cholecystitis, cholelithiasis, noted to have leukocytosis and increased Tbili concerning for possible biliary obstruction 11/12: lap clarke. 11/13 EUS/ERCP w choledocholithiasis removal, biliary sphincterectomy and biliary stent placement. AM labs pending - Continue antibx coverage for 7 days - Avoid NSAIDs, ASA for at least 5 days after biliary sphincterectomy - Trend LFTs - Repeat ERCP to remove biliary stent in about 6 weeks' time - Recommend bladder scan and cath if high volume noted - Advance diet as tolerated - Symptomatic management otherwise - GI to sign off; pls recall prn Admission and Anticipated Discharge Date Admission Date: November 11, 2021 Supervising Physician Co-Signing Physician Notes I performed a history and physical examination of the patient today, including specifically on physical exam - soft abdomen. I have discussed the patient's management with the advanced practitioner. Please refer to the nurse practitioner's note for the documented findings and plan of care. Doing well. Repeat ERCP as OP Recall if needed. Subjective Pt overall doing well, denies much abd pain, no n/v, passed small amt of flatus and small stool last night. Having trouble urinating Review of Systems Review of Systems: All systems reviewed & are unremarkable except as noted in HPI & below Physical Exam Constitutional: WD/WN, vitals as above well groomed, cooperative and comfortable Eyes: PERRL, conjunctivae normal, anicteric sclerae ENMT: external ear and nose normal, oropharynx normal Respiratory: normal respiratory effort, lungs clear to auscultation Cardiovascular: RRR, no murmur, no edema Gastrointestinal (Abdomen): Soft, non tender, BS hypoactive Skin: no rashes, warm and dry no jaundice Psychiatric: A+Ox3, euthymic affect Lymphatic: no lymphedema Results & Data ([facility]) Vital Signs (Past 12 Hours) Vital Signs Temp Pulse Resp BP Pulse Ox O2 Del Method 11/14/21 08:13 36.4 C L 62 18 114/76 93 Room Air 11/14/21 03:07 36.7 C 63 17 113/72 93 Room Air 11/13/21 21:20 36.8 C 64 18 129/79 93 Room Air
[2021-11-14 09:14] LABS: Albumin Level 3.2 gm/dl (3.4-5.0); Bilirubin Direct 0.4 mg/dl (0-0.2); Total Protein 6.6 gm/dl (6.0-8.3)
[2021-11-14 09:18] LABS: Albumin Globulin Ratio 0.9 (0.9-2); Albumin Level 3.2 gm/dl (3.4-5.0); BUN Creatinine Ratio 15.1 (10-20); Calcium 8.6 mg/dl (8.5-10.1); Creatinine Clr Calc Pharmacy 188.8 ml/min; Est GFR (African American) 128.3 ml/min; Est GFR (Non-African American) 110.7 ml/min; Globulin 3.4 gm/dl (2.5-4.0); Potassium 3.6 mmol/L (3.5-5.1); Total Protein 6.6 gm/dl (6.0-8.3)
[2021-11-14] MEDS: HYDROmorphone INJ 1 MG/ML SYRINGE IV PRN (09:54)
[2021-11-14] MEDS ORDERED: DOCUSATE SODIUM 100 MG CAP PO ONE (11:45)
--- NOTE | 2021-11-14 13:43 | Discharge Summary ---
Date of Service November 14, 2021 Admission HPI Per Admitting Provider 51-year-old female presents to the ED with a chief complaint of right upper quadrant abdominal pain that started on Wednesday evening. She associates some nausea and vomiting as well as decreased appetite and some chills. Pain is worse with movement and breathing. Nothing seems to help. Patient reports a history of controlled type 2 diabetes. She receives a injection once a week. I ( Maia Kendrick MD ) got a call for consult acute cholecystitis, I reviewed pt's H/P, labs, CT scan with pt, Principal Diagnosis Acute calculous cholecystitis Discharge Exam Constitutional WD/WN, vitals as above + obese, cooperative and comfortable; no acute distress and not ill appearing Neck normal visual inspection and trachea midline Respiratory normal respiratory effort; no respiratory distress, no labored breathing and no retractions Gastrointestinal (Abdomen) Inspection/Auscultation: abdomen normal to inspection and + abdominal surgical incision (covered with dry dressings); abdomen not distended Percussion/Palpation: + abdomen tender (at incision sites appropriate postop) and abdomen soft; no guarding and abdomen not rigid Skin no rashes, warm and dry no jaundice Psychiatric A+Ox3, euthymic affect Discharge Data Allergies Allergy/AdvReac Type Severity Reaction Status Date / Time guaifenesin [From Entex LA] Allergy Severe Anaphylaxis Verified 11/12/21 11:39 phenylephrine [From Entex LA] Allergy Severe Anaphylaxis Verified 11/12/21 11:39 phenylpropanolamine Allergy Severe Anaphylaxis Verified 11/12/21 11:39 [From Entex LA] adhesive Allergy Intermediate Hives Verified 11/12/21 11:39 latex Allergy Intermediate Hives Verified 11/12/21 11:39 aspirin Allergy Unknown does not Verified 11/12/21 11:39 take because "father was allergic" to ASA Consultations 11/11/21 20:06 Consult General Surgery Stat 11/11/21 20:14 ED Decision to Admit Stat 11/12/21 09:02 Consult Gastroenterology Routine Procedures Performed Operation Date: 11/12/21 11:50 Actual Procedures p Laparoscopic Cholecystectomy with Cholangiogram(Not Applicable) - Maia Kendrick MD Operation Date: 11/13/21 07:00 Actual Procedures p Endoscopic Ultrasonography Upper(Not Applicable) - Reny Roman MD s Endoscopic Retrograde Cholangiopancreatogram, Stent Placement(Not Applicable) - Reny Roman MD s Esophagogastroduodenoscopy(Bilateral) - Reny Roman MD Ordered Studies 11/11/21 15:51 CT abd pelvis IV con only Stat 11/11/21 22:37 US gallbladder Urgent 11/12/21 [place] cholangiogram OR Routine 11/13/21 [place] ERCP biliary ductal Routine 11/13/21 14:55 US upper EUS PACS images Routine Hospital Course (1) Acute acalculous cholecystitis: (2) Choledocholithiasis: Plan Patient was evaluated in the emergency room by Dr. Kendrick and was admitted to the hospital and scheduled for laparoscopic cholecystectomy the following morning. Patient was kept n.p.o., IV fluids, IV pain management as needed, IV antiemetics as needed, IV Zosyn was started. Her labs were repeated in the morning which showed continued leukocytosis of 21,000 and her total bilirubin and LFTs increas ed. GI was consulted given elevated LFTs and total bilirubin. Plan was for EUS/ERCP the following day. Decision was made to proceed with a laparoscopic cholecystectomy given her elevated white blood cell count and 4-day history of abdominal pain. Patient was found to have acute cholecystitis and tolerated procedure well. She was transferred to recovery then to medical/surgical floor for postoperative care. Her diet was advanced to clear liquids. IV Zosyn was continued. On postop day #1 her total bilirubin and LFTs continue to increase. She was taken to operating room for EUS and ERCP and was found to have choledocholithiasis. A common bile duct stent was placed. Patient was transferred back to her medical/surgical floor for postoperative care can. Diet was advanced to clear liquids. IV Zosyn was continued. P.o. Percocet as needed for pain was ordered. On postop day #2 patient was evaluated, afebrile, vital signs stable. She did have some urinary retention but was able to void on her own later in the morning. Diet was advanced to regular diet. Pain was controlled. Patient was discharged home on postop day #2 from a laparoscopic cholecystectomy and postop day #1 from an ERCP with common bile duct stent placement. She was discharged home with p.o. Percocet as needed for pain and Augmentin for 4 more days for total course of 7 days of antibiotics. Total Time Total Time Spent Total Time Spent (In Minutes): 60 Total Time Includes: Examination of the Patient, Discharge Planning and Medication Reconciliation Discharge Plan Discharge Items Patient Disposition: Home - Self-Care Reason For Visit: VOMITING, LOWER ABDOMINAL PAIN Discharge Diagnosis: Acute calculous cholecystitis (Acute inflammation of gallbladder with gallstones) Choledocholithiasis (Common bile duct stone) Activity: Per Instructions section Non-emergency contact: Primary Care Provider, Surgeon and Letter Of Credit Document Examiner Call non-emergency contact if: you have any medication questions, your pain is not controlled, your pain is worsening, your pain is concerning for you, you have a fever, your temperature is above 101, your wound has increased redness, your wound has increased drainage and your wound pain has increased Follow-up/Referrals: Matilde Mao, [Primary Care Provider] - Diet: Low Fat Addtl Attending Provider Instructions: Post-Surgical ~Discharge Instructions Activity Recommendations: - lifting limitation: (20 pounds for 4 weeks), - exercise/sex/sports limit: (nonstrenuous for 2 weeks), - driving or machine use limit: (none for 1 week , until pain free and no longer taking narcotic pain medication), - Shower/bathe limit: (may shower beginning Wednesday) Diet: - Resume previous diet SPECIAL CARE INSTRUCTIONS: - May shower on Wednesday. Sponge bath and wash hair in meantime. On Wednesday, remove outer dressings and shower. Let water run over area and pat dry. - Leave steri strips on for one week and then remove. - Call the surgeon's office with any questions or concerns - - (ex. temperature higher than 101 degrees F, excessive bleeding or pain). MEDICATIONS: - Resume previous medications unless instructed otherwise by your surgeon. - May take extra strength Tylenol as needed for mild to moderate pain. 500 mg every 6 hours as needed - AVOID aspirin or NSAIDs (Aleve, Motrin, Ibuprofen) for 5 days given the ERCP procedure - Percocet 1 every 6 hours, as needed for moderate to severe pain - Recommend daily stool softener (Colace, [id number]) while taking narcotic pain medication to prevent constipation or straining. Drink plenty of water daily. - Take antibiotics as prescribed for another 4 days as prescribed. FOLLOW UP VISIT: - If not already scheduled, please call the office to schedule a two week follow-up appointment. Office number Pending Studies at Discharge: Yes (gallbladder pathology, will be reviewed at follow-up visit) Stand-Alone Forms: My [facility], Smoking Cessation Medications and DC Order Prescriptions: New amoxicillin-pot clavulanate 875-125 mg tablet 1 tab PO BID Qty: 8 0RF oxycodone-acetaminophen 5-325 mg tablet 1 tab PO Q6H PRN (Reason: pain) Qty: 12 0RF Continued albuterol sulfate 90 mcg/actuation Hfa Aerosol Inhaler 2 puff INHALATION Q4 PRN (Reason: Shortness Of Breath Or cough) magnesium 500 mg Tablet 500 mg PO HS zinc acetate 50 mg (zinc) Capsule 50 mg PO QAM oxybutynin chloride 5 mg tablet extended release 24hr 5 mg PO QAM omeprazole 20 mg capsule,delayed release(DR/EC) 20 mg PO QAM losartan-hydrochlorothiazide 50-12.5 mg tablet 1 tab PO QAM rosuvastatin 10 mg tablet 10 mg PO QAM fluoxetine 40 mg capsule 40 mg PO QAM clonidine HCl 0.1 mg tablet 0.1 mg PO HS lorazepam 0.5 mg tablet 0.5 mg PO HS PRN (Reason: Sleep) buspirone 30 mg tablet 30 mg PO QAM fluoxetine 20 mg capsule 20 mg PO QAM ergocalciferol (vitamin D2) 1,250 mcg (50,000 unit) Capsule 1,250 mcg PO WK Rx Instructions: sundays tramadol 50 mg Tablet 50 mg PO Q6H PRN (Reason: migraine pain) [id number]-minerals Tablet 1 tab PO DAILY olopatadine 0.1 % Drops 1 drp OPHTHALMIC (EYE) BID Rx Instructions: separate doses by at least 6-8 hours Mounjaro 5 mg/0.5 mL Pen Injector 5 mg SUBCUT WK Rx Instructions: sundays ferrous sulfate [iron] 325 mg (65 mg iron) Tablet 325 mg PO QAM Discontinued meloxicam 15 mg tablet 15 mg PO QAM Discharge Orders: Discharge Order (Routine); Ordered 11/14/21 Ordered By: Ann Lema Admission Data Admit Date/Time: 11/11/21 22:45 Attending Provider: Maia Kendrick Admit Provider: Maia Kendrick Primary Care Provider: Matilde Mao Other Providers: Maia Kendrick ; Yesika Graf ; Miguel A Anderson ; Joana Palomo ; Ann Banda ; Akua Sanford ; Amber Al ; Nicola Hunt ; David Robison ; Lisette Smith ; Antonio Sexton ; Tyshawn Montes ; Vera Alvarez ; Cayetano Jaquez ; Ranjan Quick ; Mac Bang ; Marylou Braxton ; Maite West ; Melody Orr ; Raya Mendes ; Reny Roman ; Kuldip Wan ; Artie Haywood ; Akash Bhardwaj ; Andra Gallagher ; Adolfo Palma Jr
[2021-11-16] MEDS ORDERED: ERGOCALCIFEROL 50,000 UNITS 1250 MCG CAP PO SCH (06:30)
== END 2021-11-14 15:53 | disposition home or self-care (01) ==
LOC: ED 15:43 → INTOOBSV 22:45 → EDINP 22:45 → 3N 11-12 15:55

== ENCOUNTER 2021-11-17 21:17 | Inpatient (IN) ==
[2021-11-17] MEDS ORDERED: ONDANSETRON INJ 2 MG/ML 2 ML VIAL IV STA (22:06)
[2021-11-17 22:31] LABS: Basophils # (auto) 0.06 K/uL (0-0.2); Basophils % (auto) 0.5 %; Eosinophils # (auto) 0.54 K/uL (0-0.50); Eosinophils % (auto) 4.3 %; Hematocrit (blood only) 38.9 % (34.1-44.9); Hemoglobin 12.5 g/dl (12.0-16.0); Immature Granulocytes # (auto) 0.07 K/uL (0.00-0.02); Immature Granulocytes % (auto) 0.6 %; Lymphocytes # (auto) 2.26 K/uL (1.2-3.4); Lymphocytes % (auto) 17.8 %; Mean Corpuscular Hemoglobin 25.9 pg (25.0-34.0); Mean Corpuscular Hgb Conc 32.1 g/dL (32.0-36.0); Mean Corpuscular Volume 80.7 fL (80.0-100.0); Mean Platelet Volume 11.2 fL (9.4-12.3); Monocytes # (auto) 0.68 K/uL (0.24-0.82); Monocytes % (auto) 5.4 %; Neutrophils # (auto) 9.09 K/uL (1.4-6.5); Neutrophils % (auto) 71.4 %; Platelet Count 537 K/uL (130-400); RDW Standard Deviation 43.6 fL (36.4-46.3); Red Blood Count 4.82 M/uL (3.93-5.22)
[2021-11-17 22:37] LABS: Appearance Urine Clear (Clear); Bacteria Urine Automated Negative (Negative); Bilirubin Urine Negative (Negative); Blood Urine Trace (Negative); Cast Urine Automated 0 /lpf (0-5); Color Urine Yellow; Epithelial Cell Urine Auto >30 /lpf (0-5); Glucose Urine UA Negative (Negative); Ketones Urine Negative (Negative); Leukocyte Esterase Urine 2+ (Negative); Nitrite Urine Negative (Negative); Protein Urine Negative (Negative); RBC Urine Automated 0-4 /hpf (0-4); Specific Gravity Urine 1.007 (1.000-1.030); Urobilinogen Urine Negative (Negative)
[2021-11-17 22:56] LABS: BUN Creatinine Ratio 10.8 (10-20); Bilirubin,Total 0.5 mg/dl (0.2-1.0); Calcium 9.7 mg/dl (8.5-10.1); Creatinine Clr Calc Pharmacy 153.2 ml/min; Est GFR (Non-African American) 103.5 ml/min; Globulin 3.9 gm/dl (2.5-4.0); Total Protein 7.9 gm/dl (6.0-8.3)
[2021-11-18] MEDS ORDERED: OPTIRAY 300 500mL IV ONE (01:18)
[2021-11-18] MEDS ORDERED: MoRPHine SULFATE 10 MG/ML CARP/VIAL IV STA (01:58)
[2021-11-18] MEDS ORDERED: SODIUM CHLORIDE 0.9% 1000ML 1,000 ML IV ONE (01:58)
[2021-11-18] MEDS ORDERED: PIPERACILLIN/TAZOBACTAM 4.5 GM/120 ML BAG IV ONE (02:09)
--- NOTE | 2021-11-18 02:32 | History & Physical Report ---
Date of Service November 18, 2021 Assessment & Plan (1) Abdominal abscess: Plan: Due to the patient's clinical presentation and imaging we admit the patient to the hospital proceeding as follows: The fluid collection noted on patient's CT scan could represent findings such as hematoma, seroma, or abscess. I favor abscesses there is gas noted in the fluid collection. I doubt this is a hematoma as her hemoglobin and hematocrit have not dropped. Analgesics we provided Antiemetics will be provided We will place the patient on empiric antibiotics in the form of Zosyn We will hydrate with IV fluids We will keep the patient n.p.o. for the present time We will follow serial labs We will monitor her clinical spots to antibiotics with further clinical decisions to be delineated based on her response to the above Will use SCDs for DVT prevention, no chemical means until we are certain whether or not procedures need to be performed She will be a level 1 full code History of Present Illness Chief Complaint: Postoperative fluid collection, status postcholecystectomy Primary Care Provider: Matilde Mao DO This is a 51-year-old female who underwent a laparoscopic cholecystectomy on 11/04/[address] Kendrick of [facility] surgery. The day following her laparoscopic cholecystectomy she was taken to the operating room by gastroenterology where she underwent an ERCP. Choledocholithiasis was noted. The patient underwent a biliary sphincterotomy as well as stent placement. She was ultimately discharged home on 11/14/2021. She was discharged on antibiotics in the form of Augmentin which she has been compliant with. Since being discharged home the patient notes that she has been having bowel movements but recently has had her bowel movements noted to be loose. She has been urinating without any dysuria or other difficulties. She has not had any nausea or vomiting. She denies any fevers, shakes, or chills. She also notes that she has been tolerating a solid diet without difficulty. The patient feels that she was doing quite well initially upon return home however yesterday on 11/17/2021 she developed some severe right upper quadrant abdominal pain with radiation into her right chest which was very similar to what she experienced when she had her cholecystitis. Because of this she reported to the emergency department. In the emergency department the patient had labs and imaging which I independently reviewed. The patient underwent a CT scan of the chest which was negative for pneumonia or PE. She did undergo a CT scan of the abdomen and pelvis as well that showed patient was status postcholecystectomy. Pneumobilia was noted. In the gallbladder fossa there was a fluid collection measuring 6.1 x 5.2 cm. There is gas noted in this tissue which was concerning for developing abscess. Labs included a CBC were white blood cell count was slightly elevated at 12.7. Her hemoglobin, and hematocrit were normal. Platelet count was elevated at 537,000. Chemistry profile showed sodium, potassium, BUN, creatinine were normal. Patient's transaminases and bilirubin were within the normal range. Her alkaline phosphatase had a slight elevation of 179. Lipase was within the normal range. Urinalysis was not indicative of infection. A COVID test has been ordered and is pending. At the time of my interview the patient was resting comfortably in bed she was in no distress Allergies Allergy/AdvReac Type Severity Reaction Status Date / Time guaifenesin [From Entex LA] Allergy Severe Anaphylaxis Verified 11/12/21 11:39 phenylephrine [From Entex LA] Allergy Severe Anaphylaxis Verified 11/12/21 11:39 phenylpropanolamine Allergy Severe Anaphylaxis Verified 11/12/21 11:39 [From Entex LA] adhesive Allergy Intermediate Hives Verified 11/12/21 11:39 latex Allergy Intermediate Hives Verified 11/12/21 11:39 aspirin Allergy Unknown does not Verified 11/12/21 11:39 take because "father was allergic" to ASA Home Medications Medication Instructions Recorded Confirmed Type albuterol sulfate 90 mcg/actuation 2 puff inhalation Q4 PRN Shortness 03/19/19 11/11/21 History aerosol inhaler Of Breath Or cough buspirone 30 mg tablet 30 mg PO QAM 11/11/21 11/11/21 History clonidine HCl 0.1 mg tablet 0.1 mg PO HS 11/11/21 11/11/21 History ergocalciferol (vitamin D2) 1,250 1,250 mcg PO WK 11/11/21 11/11/21 History mcg (50,000 unit) capsule ferrous sulfate 325 mg (65 mg 325 mg PO QAM 11/11/21 11/11/21 History iron) tablet (iron) fluoxetine 20 mg capsule 20 mg PO QAM 11/11/21 11/11/21 History fluoxetine 40 mg capsule 40 mg PO QAM 11/11/21 11/11/21 History lorazepam 0.5 mg tablet 0.5 mg PO HS PRN Sleep 11/11/21 11/11/21 History losartan 50 mg-hydrochlorothiazide 1 tab PO QAM 11/11/21 11/11/21 History 12.5 mg tablet magnesium 500 mg tablet 500 mg PO HS 11/11/21 11/11/21 History kbgjswnfsfne-Vh-qxko-minerals 1 tab PO DAILY 11/11/21 11/11/21 History olopatadine 0.1 % eye drops 1 drp ophthalmic (eye) BID 11/11/21 11/11/21 History omeprazole 20 mg capsule,delayed 20 mg PO QAM 11/11/21 11/11/21 History release oxybutynin chloride 5 mg 5 mg PO QAM 11/11/21 11/11/21 History tablet,extended release 24 hr rosuvastatin 10 mg tablet 10 mg PO QAM 11/11/21 11/11/21 History tirzepatide 5 mg/0.5 mL 5 mg subcut WK 11/11/21 11/11/21 History subcutaneous pen injector (Mounjaro) tramadol 50 mg tablet 50 mg PO Q6H PRN migraine pain 11/11/21 11/11/21 History zinc acetate 50 mg (zinc) capsule 50 mg PO QAM 11/11/21 11/11/21 History amoxicillin 875 mg-potassium 1 tab PO BID #8 tabs 11/14/21 Rx clavulanate 125 mg tablet oxycodone-acetaminophen 5 mg-325 1 tab PO Q6H PRN pain #12 tabs 11/14/21 Rx mg tablet Past Med/Surg History Medical History Anemia no hx of blood transfusion, + hx of iron infusions (09/2018) Anxiety and depression Asthma stable Diabetes mellitus, type 2 diet controlled Hypertension Migraine Morbid obesity Osteoarthritis Uterine bleeding Surgical History H/O bilateral breast reduction surgery History of colonoscopy History of hysterectomy History of laparoscopy FOR ECTOPIC History of tooth extraction Family History Father Family history of diabetes mellitus Mother Family history of diabetes mellitus Grandfather Family history of diabetes mellitus Grandmother Family history of diabetes mellitus Brother Family history of diabetes mellitus Grandfather (Paternal) Family history of esophageal cancer Social History Smoking Status: Never smoker Second Hand Exposure: No; Hx Alcohol Use: Yes Alcohol type: wine and hard liquor Hx Substance Use: No Preferred Language: German Communication Ability: Effective Finishing Operator Required: No Beliefs That Will Affect Care: None Current Living Situation: Spouse Feels Safe at Home: Yes Assistive Devices: None Review of Systems Constitutional: no fever and no chills Eyes: no eye pain Ear, Nose, Mouth, Throat: no ear pain Respiratory: no cough and no dyspnea Cardiovascular: no chest pain Gastrointestinal: + abdominal pain; no nausea and no vomiting Genitourinary: no dysuria Musculoskeletal: no back pain Integumentary: no rash Neurologic: no generalized weakness Physical Exam Constitutional: WD/WN, vitals as above Eyes: + anicteric sclerae ENMT: Ears: no hearing impairment and no external ear abnormality Sublingual jaundice is absent Neck: trachea midline Respiratory: Breath sounds are decreased at bases due to decreased respiratory effort. There are no rales, rhonchi, wheezing, or use of accessory muscles Cardiovascular: Rate/Rhythm: regular rate and regular rhythm Gastrointestinal (Abdomen): Abdomen is rotund but soft. It is nonrigid. Patient has 4 laparoscopic incisions that are healing well. The incisions are all clean, dry, intact without any drainage or erythema. On the patient's most lateral incision there is significant tenderness with even light palpation. Patient also had pain with palpation in the right upper quadrant. There is no rebound tenderness or guarding. Musculoskeletal: No calf tenderness, feet are warm and well-perfused Skin: no rashes Neurologic: moves all extremities Psychiatric: A+Ox3, euthymic affect Results & Data Results & Data ([facility]) Vital Signs (Past 12 Hours) Vital Signs Temp Pulse Pulse Resp BP BP Pulse Ox 11/17/21 23:55 36.9 C 61 18 151/76 H 94 11/17/21 21:18 37.1 C 71 20 180/74 H 94 O2 Del Method 11/17/21 23:55 Room Air 11/17/21 21:18 Room Air PG Care Time/CCT Total # of Minutes Spent Total Time Spent with Patient: Total time spent is greater than 50% in coordination of care (as documented) at patient's floor/unit and/or counseling patient: Coding Level of Care Code 20277 Initial Inpt Care Lvl 3 Diagnoses Abdominal abscess
[2021-11-18] MEDS ORDERED: SODIUM CHLORIDE 0.9% 1000ML 1,000 ML IV SCH (02:45)
[2021-11-18] MEDS ORDERED: ONDANSETRON INJ 2 MG/ML 2 ML VIAL IV STA (02:59)
[2021-11-18] MEDS ORDERED: ONDANSETRON INJ 2 MG/ML 2 ML VIAL ONE (03:00)
[2021-11-18] MEDS ORDERED: ACETAMINOPHEN 1,000 MG/100 ML VIAL IV PRN (03:59)
--- NOTE | 2021-11-18 04:04 | Emergency Department Note ---
History of Present Illness General Chief complaint: Vomiting Stated complaint: VOMITING, CHEST PAIN Time Seen by Provider: 11/18/21 00:14 History of Present Illness Maximum Pain Intensity: 4 This 51-year-old female patient presents to the emergency department today for evaluation of vomiting, belching, chest pain, and abdominal pain. Patient had cholecystectomy and ERCP 1 week ago. She states she felt that she was healing without difficulty, but earlier today developed sudden onset of right upper quadrant pain radiating to the right flank and into the right breast. Patient states she is feeling somewhat short of breath. She has had several episodes of vomiting. She took a Percocet and tried to eat at about 8 PM but continued to vomit and her pain has been progressively worsening throughout the evening. She decided to come to the emergency department for further evaluation of her symptoms. She denies any fever. No chills. She feels that there may be some discharge coming from one of the incision sites in the right upper quadrant. She rates her current pain 4/10 and describes it as stabbing, "like someone is pushing a knife out of my abdomen". Home Medications Medication Instructions Recorded Confirmed Type albuterol sulfate 90 mcg/actuation 2 puff inhalation Q4 PRN Shortness 03/19/19 0 11/11/21 History aerosol inhaler Of Breath Or cough buspirone 30 mg tablet 30 mg PO QAM 11/11/21 11/11/21 History clonidine HCl 0.1 mg tablet 0.1 mg PO HS 11/11/21 11/11/21 History ergocalciferol (vitamin D2) 1,250 1,250 mcg PO WK 11/11/21 11/11/21 History mcg (50,000 unit) capsule ferrous sulfate 325 mg (65 mg 325 mg PO QAM 11/11/21 11/11/21 History iron) tablet (iron) fluoxetine 20 mg capsule 20 mg PO QAM 11/11/21 11/11/21 History fluoxetine 40 mg capsule 40 mg PO QAM 11/11/21 11/11/21 History lorazepam 0.5 mg tablet 0.5 mg PO HS PRN Sleep 11/11/21 11/11/21 History losartan 50 mg-hydrochlorothiazide 1 tab PO QAM 11/11/21 11/11/21 History 12.5 mg tablet magnesium 500 mg tablet 500 mg PO HS 11/11/21 11/11/21 History yingdhicixrc-Vc-svzx-minerals 1 tab PO DAILY 11/11/21 11/11/21 History olopatadine 0.1 % eye drops 1 drp ophthalmic (eye) BID 11/11/21 11/11/21 History omeprazole 20 mg capsule,delayed 20 mg PO QAM 11/11/21 11/11/21 History release oxybutynin chloride 5 mg 5 mg PO QAM 11/11/21 11/11/21 History tablet,extended release 24 hr rosuvastatin 10 mg tablet 10 mg PO QAM 11/11/21 11/11/21 History tirzepatide 5 mg/0.5 mL 5 mg subcut WK 11/11/21 11/11/21 History subcutaneous pen injector (Kathy) tramadol 50 mg tablet 50 mg PO Q6H PRN migraine pain 11/11/21 11/11/21 History zinc acetate 50 mg (zinc) capsule 50 mg PO QAM 11/11/21 11/11/21 History amoxicillin 875 mg-potassium 1 tab PO BID #8 tabs 11/14/21 Rx clavulanate 125 mg tablet oxycodone-acetaminophen 5 mg-325 1 tab PO Q6H PRN pain #12 tabs 11/14/21 Rx mg tablet Allergies Allergy/AdvReac Type Severity Reaction Status Date / Time guaifenesin [From Entex LA] Allergy Severe Anaphylaxis Verified 11/12/21 11:39 phenylephrine [From Entex LA] Allergy Severe Anaphylaxis Verified 11/12/21 11:39 phenylpropanolamine Allergy Severe Anaphylaxis Verified 11/12/21 11:39 [From Entex LA] adhesive Allergy Intermediate Hives Verified 11/12/21 11:39 latex Allergy Intermediate Hives Verified 11/12/21 11:39 aspirin Allergy Unknown does not Verified 11/12/21 11:39 take because "father was allergic" to ASA Past Med/Surg History Medical History Anemia no hx of blood transfusion, + hx of iron infusions (09/2018) Anxiety and depression Asthma stable Diabetes mellitus, type 2 diet controlled Hypertension Migraine Morbid obesity Osteoarthritis Uterine bleeding Surgical History H/O bilateral breast reduction surgery History of colonoscopy History of hysterectomy History of laparoscopy FOR ECTOPIC History of tooth extraction Family History Father Family history of diabetes mellitus Mother Family history of diabetes mellitus Grandfather Family history of diabetes mellitus Grandmother Family history of diabetes mellitus Brother Family history of diabetes mellitus Grandfather (Paternal) Family history of esophageal cancer Social History Smoking Status: Never smoker Second Hand Exposure: No; Hx Alcohol Use: Yes Alcohol type: wine and hard liquor Hx Substance Use: No Preferred Language: Chadian Communication Ability: Effective 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 Beliefs That Will Affect Care: None Current Living Situation: Spouse Feels Safe at Home: Yes Assistive Devices: None Review of Systems A total of 10 systems reviewed and were otherwise negative Physical Exam Vital Signs Vital Signs - 24 hr 11/17/21 21:18 11/17/21 23:55 Temperature 37.1 C 36.9 C Temperature Source Temporal Artery Scan Oral Pulse Rate 71 Pulse Rate [Left Finger] 61 Pulse Rhythm Regular Pulse Strength Normal Respiratory Rate 20 18 Respiratory Effort / Characteristics Non-Labored Spontaneous Non-Labored Spontaneous Respiratory Depth Normal Normal Blood Pressure 180/74 H Blood Pressure [Right Arm] 151/76 H Blood Pressure Mean 109 Blood Pressure Mean [Right Arm] 101 Blood Pressure Position Sitting Blood Pressure Position [Right Arm] Lying Pulse Oximetry 94 94 Oxygen Delivery Method Room Air Room Air Sepsis Recent Fever Within 48 Hours No Sepsis New/Unexplained Change in Mental Status N/A Sepsis Action Taken by Nursing No Action Required VITALS: Vitals are noted on the nurse's note and reviewed by myself. Vital signs stable. GENERAL: This is a 51-year-old obese white female, in no acute distress, nondiaphoretic, well-developed well-nourished. SKIN: The skin was without rashes, erythema, edema, or bruising. There is no tenting of the skin. Capillary refill less than 2 seconds. HEAD: Normocephalic atraumatic. EARS: External auditory canals clear, tympanic membranes pearly bear without erythema or effusion bilaterally. EYES: Pupils equal round and reactive to light and accommodation. Conjunctivae without injection, sclerae without icterus. Extraocular movements intact. NOSE: Patent, turbinates without inflammation or discharge. No sinus tenderness. MOUTH: Mucous membranes moist. Tonsils are not enlarged. Pharynx without erythema or exudate. Uvula midline. Airway patent. Tongue does not deviate. NECK: Supple without nuchal rigidity. No lymphadenopathy. No thyromegaly. Cervical spine is nontender. No JVD. HEART: Regular rate and rhythm without murmurs gallops or rubs. LUNGS: Clear to auscultation bilaterally without wheezes, rales or rhonchi. No retractions or accessory muscle use. ABDOMEN: Positive bowel sounds x 4. Right upper quadrant tenderness to palpation. Right CVA tenderness. No erythema or discharge from the incision sites. They appear to be well scabbed over. MUSCULOSKELETAL: No muscle atrophy, erythema, or edema noted. Full range of motion without joint tenderness in all extremities. No tenderness to palpation. Normal gait. Strength 5/5 throughout. NEURO: Patient was alert and oriented to person place and time. No focal neurological deficits. Course Course The patient was seen and evaluated as above. An order was placed for continuous cardiac monitoring. The monitor shows a normal sinus rhythm at a rate of 69 bpm. IV access obtained, labs drawn. Patient medicated with IV fluids, morphine, Zofran Imaging performed and reviewed by myself and radiologist as noted. The radiologist did contact me regarding the critical findings. Labs reviewed by myself. I discussed the findings with the patient at bedside. Patient was medicated with additional Zofran. She was given Zosyn. I discussed the case with Cristo Greenberg PA-C with general surgery. He did agree to see and evaluate the patient. He will admit the patient to the general surgery service. Administered Medications Discontinued Medications Sodium Chloride (Nss 1000ml) 1,000 mls @ 999 mls/hr IV .Q1H1M ONE Stop: 11/18/21 02:58 Last Infusion: 11/18/21 03:26 Dose: 0 mls/hr Documented By: Admin: 11/18/21 02:25 Dose: 999 mls/hr Documented By: CHANTAL Piperacillin Sod/Tazobactam Sod (Zosyn) 4.5 gm in 120 mls @ 240 mls/hr IV NOW ONE Stop: 11/18/21 02:38 Last Infusion: 11/18/21 02:58 Dose: 0 mls/hr Documented By: Admin: 11/18/21 02:26 Dose: 240 mls/hr Documented By: CHANTAL Ioversol (Optiray 300 500ml) 118 ml IV ONCE ONE Stop: 11/18/21 01:19 Last Admin: 11/18/21 01:19 Dose: 118 ml Documented By: ALIYAH Morphine Sulfate (Morphine Sulfate 10 Mg/Ml Carp/Vial) 8 mg IV NOW STA Stop: 11/18/21 01:59 Last Admin: 11/18/21 02:23 Dose: 8 mg Documented By: CHANTAL Ondansetron HCl (Ondansetron Inj 2 Mg/Ml 2 Ml Vial) 4 mg IV NOW STA Stop: 11/17/21 22:07 Last Admin: 11/17/21 22:13 Dose: 4 mg Documented By: CHERI Ondansetron HCl (Ondansetron Inj 2 Mg/Ml 2 Ml Vial) 4 mg IV NOW STA Stop: 11/18/21 03:00 Last Admin: 11/18/21 03:01 Dose: 4 mg Documented By: CHANTAL Ondansetron HCl (Ondansetron Inj 2 Mg/Ml 2 Ml Vial) Confirm Administered Dose 4 mg .ROUTE .STK-MED ONE Stop: 11/18/21 03:01 Last Admin: 11/18/21 03:10 Dose: Not Given Documented By: CHANTAL Medical Decision Making Differential Diagnosis Etiologies such as appendicitis, diverticulitis, obstruction, inflammatory bowel disease, renal colic, PUD, biliary pathology, pancreatitis, mesenteric ischemia, aortic pathology, infections, genitourinary, UTI, perforated viscus, as well as others were entertained. Medical Records Attestation: I reviewed the patient's medical records. Home Medications Current Medication List: was personally reviewed by me Laboratory Data Attestation: I reviewed the patient's lab results. Mild leukocytosis of 12,000. No anemia or thrombocytopenia. Renal, hepatic function and electrolytes without significant abnormality. Lipase 82. Urinalysis negative for clear evidence of infection, does appear to be co ntaminated specimen. COVID-19 testing negative. Result diagrams: 11/17/21 22:13 11/17/21 22:13 Lab Results 11/17/21 11/17/21 11/17/21 Range/Units 22:13 22:13 22:18 WBC 12.70 H (4.8-10.8) K/ul RBC 4.82 (3.93-5.22) M/uL Hgb 12.5 (12.0-16.0) g/dl Hct 38.9 (34.1-44.9) % MCV 80.7 (80.0-100.0) fL MCH 25.9 (25.0-34.0) pg MCHC 32.1 (32.0-36.0) g/dL RDW Std Deviation 43.6 (36.4-46.3) fL RDW Coeff of Nitin 15.0 H (11.5-14.5) % Plt Count 537 H (130-400) K/uL MPV 11.2 (9.4-12.3) fL Immature Gran % (Auto) 0.6 % Neut % (Auto) 71.4 % Lymph % (Auto) 17.8 % [place] % (Auto) 5.4 % Eos % (Auto) 4.3 % Baso % (Auto) 0.5 % Neut # (Auto) 9.09 H (1.4-6.5) K/uL Lymph # (Auto) 2.26 (1.2-3.4) K/uL [place] # (Auto) 0.68 (0.24-0.82) K/uL Eos # (Auto) 0.54 H (0-0.50) K/uL Baso # (Auto) 0.06 (0-0.2) K/uL Immature Gran # (Auto) 0.07 H (0.00-0.02) K/uL Sodium 137 (136-145) mmol/L Potassium 4.0 (3.5-5.1) mmol/L Chloride 100 (98-107) mmol/L Carbon Dioxide 29 (21-32) mmol/L Anion Gap 8 (3-11) BUN 7 (6-23) mg/dl Creatinine 0.65 (0.6-1.2) mg/dl Est Cr Clr Drug Dosing 153.2 ml/min Est GFR ( Amer) 120.0 ml/min Est GFR (Non-Af Amer) 103.5 ml/min BUN/Creatinine Ratio 10.8 (10-20) Glucose 120 H (70-99(Fasting)) mg/dl Calcium 9.7 (8.5-10.1) mg/dl Total Bilirubin 0.5 (0.2-1.0) mg/dl AST 13 (13-39) U/L ALT 35 (7-52) U/L Alkaline Phosphatase 179 H (34-104) U/L Total Protein 7.9 (6.0-8.3) gm/dl Albumin 4.0 (3.4-5.0) gm/dl Globulin 3.9 (2.5-4.0) gm/dl Albumin/Globulin Ratio 1.0 (0.9-2) Lipase 82 (11-82) U/L Urine Color Yellow Urine Appearance Clear (Clear) Urine pH 8.0 H (4.5-7.5) Ur Specific [place] 1.007 (1.000-1.030) Urine Protein Negative (Negative) Urine Glucose (UA) Negative (Negative) Urine Ketones Negative (Negative) Urine Blood Trace H (Negative) Urine Nitrite Negative (Negative) Urine Bilirubin Negative (Negative) Urine Urobilinogen Negative (Negative) Ur Leukocyte Esterase 2+ H (Negative) Urine WBC (Auto) 1-5 (0-5) /hpf Urine RBC (Auto) 0-4 (0-4) /hpf U Hyaline Cast (Auto) 0 (0-5) /lpf U Epithel Cells (Auto) >30 H (0-5) /lpf Urine Bacteria (Auto) Negative (Negative) SARS-CoV-2, RNA, NAAT (NEGATIVE) 11/18/21 Range/Units 02:31 WBC (4.8-10.8) K/ul RBC (3.93-5.22) M/uL Hgb (12.0-16.0) g/dl Hct (34.1-44.9) % MCV (80.0-100.0) fL MCH (25.0-34.0) pg MCHC (32.0-36.0) g/dL RDW Std Deviation (36.4-46.3) fL RDW Coeff of Nitin (11.5-14.5) % Plt Count (130-400) K/uL MPV (9.4-12.3) fL Immature Gran % (Auto) % Neut % (Auto) % Lymph % (Auto) % [place] % (Auto) % Eos % (Auto) % Baso % (Auto) % Neut # (Auto) (1.4-6.5) K/uL Lymph # (Auto) (1.2-3.4) K/uL [place] # (Auto) (0.24-0.82) K/uL Eos # (Auto) (0-0.50) K/uL Baso # (Auto) (0-0.2) K/uL Immature Gran # (Auto) (0.00-0.02) K/uL Sodium (136-145) mmol/L Potassium (3.5-5.1) mmol/L Chloride (98-107) mmol/L Carbon Dioxide (21-32) mmol/L Anion Gap (3-11) BUN (6-23) mg/dl Creatinine (0.6-1.2) mg/dl Est Cr Clr Drug Dosing ml/min Est GFR ( Amer) ml/min Est GFR (Non-Af Amer) ml/min BUN/Creatinine Ratio (10-20) Glucose (70-99(Fasting)) mg/dl Calcium (8.5-10.1) mg/dl Total Bilirubin (0.2-1.0) mg/dl AST (13-39) U/L ALT (7-52) U/L Alkaline Phosphatase (34-104) U/L Total Protein (6.0-8.3) gm/dl Albumin (3.4-5.0) gm/dl Globulin (2.5-4.0) gm/dl Albumin/Globulin Ratio (0.9-2) Lipase (11-82) U/L Urine Color Urine Appearance (Clear) Urine pH (4.5-7.5) Ur Specific [place] (1.000-1.030) Urine Protein (Negative) Urine Glucose (UA) (Negative) Urine Ketones (Negative) Urine Blood (Negative) Urine Nitrite (Negative) Urine Bilirubin (Negative) Urine Urobilinogen (Negative) Ur Leukocyte Esterase (Negative) Urine WBC (Auto) (0-5) /hpf Urine RBC (Auto) (0-4) /hpf U Hyaline Cast (Auto) (0-5) /lpf U Epithel Cells (Auto) (0-5) /lpf Urine Bacteria (Auto) (Negative) SARS-CoV-2, RNA, NAAT NEGATIVE (NEGATIVE) Imaging Data Radiologist's Impression: Patient: VANDA ROSA (Female) : 72 Status: ER Date: 11/18/21 01:21 Room #: History: sob chest pain Slices: [phone] Priors: Tech: Sue Montes @ [phone] Exams: CTA CHEST Contrast: IV Amt: 118ml Accession Numbers: [id number] Referring Physician: REFERRED SELF Preliminary Findings Only See Final Report For Complete Findings CTA CHEST: No evidence of PE. Lungs are clear. No pleural effusions. No adeno luca. Heart size is normal. Aorta is unremarkable. Dependent atelectasis noted Radiologist: Theo Chadwick MD Study ready at 01:27 and initial results transmitted at 01:56 Patient: VANDA ROSA (Female) : 72 Status: ER Date: 11/18/21 01:21 Room #: History: abd pain Slices: [phone] Priors: Tech: Sue Montes @ [phone] Exams: CT ABDOMEN & PELVIS With Contrast Contrast: IV Amt: 118ml Accession Numbers: [id number] Referring Physician: REFERRED SELF Preliminary Findings Only See Final Report For Complete Findings CT ABDOMEN & PELVIS With Contrast: Patient is status post cholecystectomy with common bile duct stent in place and with secondary pneumobilia evident. In the gallbladder fossa a gas and debris collection is present suspicious for abscess measuring 6.1 x 5.2 cm Radiologist: Theo Chadwick MD Study ready at 01:37 and initial results transmitted at 01:55 Blood Pressure Blood Pressure Findings: Elevated blood pressure Blood Pressure Disposition: elevated BP felt to be situational MDM Narrative This 51-year-old female patient presents to the emergency department today, status post cholecystectomy. The patient is here for severe abdominal pain, belching, and pain into the right side of the chest which began this evening. She was found to have a postoperative abscess in the gallbladder fossa. The patient was started on IV antibiotics. She will be admitted to the surgery serv ice. Please see general surgery dictation regarding ongoing management care of this patient. The chart was completed utilizing [employer] voice recognition software. Grammatical errors, random word insertions, pronoun errors, and incomplete sentences are an occasional consequence of this system due to software limitations, ambient noise, and hardware issues. Any formal questions or concerns about the content, text, or information contained within the body of this dictation should be directly addressed to the provider for clarification. Impression & Plan S/P laparoscopic cholecystectomy, Abdominal pain, Postoperative abscess, Nausea & vomiting Discharge Plan Visit Data Chief Complaint: Vomiting Stated Complaint: VOMITING, CHEST PAIN ED Provider: Chris Ram ED Midlevel Provider: Sue Hinkle Discharge Problem: S/P laparoscopic cholecystectomy, Abdominal pain, Postoperative abscess, Nausea & vomiting Patient Disposition: Admitted As Inpatient Discharge Instructions Interventions: ED Discharge Assessment Last Done: 11/18/21 03:59
[2021-11-18] MEDS: ONDANSETRON INJ 2 MG/ML 2 ML VIAL IV PRN ×3 (05:13→21:34)
[2021-11-18 06:12] LABS: Basophils # (auto) 0.05 K/uL (0-0.2); Basophils % (auto) 0.4 %; Eosinophils # (auto) 0.52 K/uL (0-0.50); Eosinophils % (auto) 4.5 %; Hematocrit (blood only) 33.6 % (34.1-44.9); Hemoglobin 10.6 g/dl (12.0-16.0); Immature Granulocytes # (auto) 0.06 K/uL (0.00-0.02); Immature Granulocytes % (auto) 0.5 %; Lymphocytes # (auto) 2.35 K/uL (1.2-3.4); Lymphocytes % (auto) 20.6 %; Mean Corpuscular Hemoglobin 25.5 pg (25.0-34.0); Mean Corpuscular Hgb Conc 31.5 g/dL (32.0-36.0); Mean Corpuscular Volume 80.8 fL (80.0-100.0); Mean Platelet Volume 11.1 fL (9.4-12.3); Monocytes # (auto) 0.74 K/uL (0.24-0.82); Monocytes % (auto) 6.5 %; Neutrophils # (auto) 7.71 K/uL (1.4-6.5); Neutrophils % (auto) 67.5 %; Platelet Count 479 K/uL (130-400); RDW Standard Deviation 43.8 fL (36.4-46.3); Red Blood Count 4.16 M/uL (3.93-5.22); White Blood Count 11.43 K/ul (4.8-10.8)
[2021-11-18 06:33] LABS: Albumin Globulin Ratio 1.1 (0.9-2); Albumin Level 3.4 gm/dl (3.4-5.0); BUN Creatinine Ratio 11.3 (10-20); Bilirubin,Total 0.4 mg/dl (0.2-1.0); Calcium 8.5 mg/dl (8.5-10.1); Creatinine Clr Calc Pharmacy 160.6 ml/min; Est GFR (African American) 121.9 ml/min; Est GFR (Non-African American) 105.1 ml/min; Globulin 3.1 gm/dl (2.5-4.0); Total Protein 6.5 gm/dl (6.0-8.3)
[2021-11-18] MEDS: MoRPHine SULFATE 4 MG/ML 1 ML CARP\\VIAL IV PRN ×5 (07:11→21:44)
--- NOTE | 2021-11-18 07:16 | Surgery Progress Note ---
Date of Service November 18, 2021 Assessment & Plan (1) Postoperative abscess: Plan: pt is a 51 year-old female who presents to Er with RUQ pain, S/P laparoscopic cholecystectomy for gangrenous cholecystitis and cholelithiasis, POD 5, S/P ERCP with stent placed POD 4. IMP: [id number] abdominal abscess? plan, I agree with to admit pt to hospital, conservative treatment first, IV fluid, iv antibiotic, control pain, repeat labs in morning, will F/U, pt agrees with the plan, I answered all questions, Admission and Anticipated Discharge Date Admission Date: November 18, 2021 Subjective pt is a 51 year-old female who presents to Er with RUQ pain, S/P laparoscopic cholecystectomy for gangrenous cholecystitis and cholelithiasis, POD 5, S/P ERCP with stent placed POD 4. I reviewed pt's H/P, labs, CT scan with pt, now pt feels better, no fever, Physical Exam Constitutional: no distress Eyes: PERRL, conjunctivae normal, anicteric sclerae Neck: trachea midline, no thyromegaly Respiratory: normal respiratory effort, lungs clear to auscultation Cardiovascular: RRR, no murmur, no edema Gastrointestinal (Abdomen): soft, tenderness at RUQ, no rebound pain, no distend, BS + Musculoskeletal: no cyanosis or clubbing, extremities motor strength 5/5 Neurologic: patellar DTR's 2+ bilat, sensation intact Psychiatric: A+Ox3, euthymic affect Results & Data ([facility]) Vital Signs (Past 12 Hours) Vital Signs Temp Pulse Pulse Resp BP BP Pulse Ox 11/18/21 06:01 69 18 158/74 H 98 11/18/21 03:10 69 18 154/88 H 97 11/17/21 23:55 36.9 C 61 18 151/76 H 94 11/17/21 21:18 37.1 C 71 20 180/74 H 94 O2 Del Method 11/18/21 06:01 11/18/21 03:10 Room Air 11/17/21 23:55 Room Air 11/17/21 21:18 Room Air Laboratory Results Abnormal lab results 11/17/21 11/17/21 11/17/21 Range/Units 22:13 22:13 22:18 WBC 12.70 H (4.8-10.8) K/ul Hgb (12.0-16.0) g/dl Hct (34.1-44.9) % MCHC (32.0-36.0) g/dL RDW Coeff of Nitin 15.0 H (11.5-14.5) % Plt Count 537 H (130-400) K/uL Neut # (Auto) 9.09 H (1.4-6.5) K/uL Eos # (Auto) 0.54 H (0-0.50) K/uL Immature Gran # (Auto) 0.07 H (0.00-0.02) K/uL Glucose 120 H (70-99(Fasting)) mg/dl AST (13-39) U/L Alkaline Phosphatase 179 H (34-104) U/L Urine pH 8.0 H (4.5-7.5) Urine Blood Trace H (Negative) Ur Leukocyte Esterase 2+ H (Negative) U Epithel Cells (Auto) >30 H (0-5) /lpf 11/18/21 11/18/21 Range/Units 05:41 05:41 WBC 11.43 H (4.8-10.8) K/ul Hgb 10.6 L (12.0-16.0) g/dl Hct 33.6 L (34.1-44.9) % MCHC 31.5 L (32.0-36.0) g/dL RDW Coeff of Nitin 15.0 H (11.5-14.5) % Plt Count 479 H (130-400) K/uL Neut # (Auto) 7.71 H (1.4-6.5) K/uL Eos # (Auto) 0.52 H (0-0.50) K/uL Immature Gran # (Auto) 0.06 H (0.00-0.02) K/uL Glucose (70-99(Fasting)) mg/dl AST 11 L (13-39) U/L Alkaline Phosphatase 145 H (34-104) U/L Urine pH (4.5-7.5) Urine Blood (Negative) Ur Leukocyte Esterase (Negative) U Epithel Cells (Auto) (0-5) /lpf Diagnostic Findings CT scan- gallbladder fossa- fluid collection, 6x5cm, possible abscess,
[2021-11-18] MEDS ORDERED: [UNRECOGNIZED DRUG - OTHER] IV ONE (07:43)
[2021-11-18] MEDS ORDERED: D5W IV ONE (07:43)
[2021-11-18] MEDS ORDERED: KCL IV ONE (07:43)
[2021-11-18] MEDS: PIPERACILLIN/TAZOBACTAM 3.375 GM in DEXTROSE 5% 100 ML IV SCH ×2 (07:47→16:52)
--- NOTE | 2021-11-18 08:03 | CT Scan Report ---
ABDOMEN AND PELVIS CT WITH IV CONTRAST CT DOSE: HISTORY: RUQ pain, right flank pain, s/p GB surgery TECHNIQUE: Multiaxial CT images of the abdomen and pelvis were performed following the use of intrave nous contrast. A dose lowering technique was utilized adhering to the principles of ALARA. COMPARISON STUDY: Abdomen and pelvis CT 11/11/2021. FINDINGS: The lung bases will be reported on the same day chest CTA. The patient is status post recen t cholecystectomy. A common bile duct stent appears in good position. This likely accounts for the pn eumobilia. Mild subcutaneous fat stranding and a small focus of gas within the midline supraumbilical abdominal wall is likely due to the recent postoperative change. As a tiny fat-containing superimpos ed focal hernia. There is mild fat stranding within the right upper quadrant omentum. There is a locu lated gas and fluid collection at the gallbladder fossa which measures approximately 7.2 x 5.3 cm. Th e proximal duodenum is mildly thickened which may be reactive to the adjacent gallbladder fossa colle ction. There is 9 mm hypodense lesion within the right hepatic lobe, unchanged. This is technically t oo small to characterize. The main portal vein is patent. The spleen, pancreas, and kidneys are unrem arkable. No hydronephrosis. Stable small bilateral adrenal gland nodules. No retroperitoneal lymphade nopathy. Normal caliber abdominal aorta. Prior hysterectomy. Normal bladder. No significant pelvic fr ee fluid. No evidence for bowel obstruction. Normal appendix. IMPRESSION: 1. Status post recent cholecystectomy. There is a loculated 7.2 x 5.3 cm gas and fluid collection at the gallbladder fossa. This could represent a postoperative seroma, developing abscess, or possibly a biloma. 2. Mild wall thickening at the proximal duodenum is likely reactive. 3. A common bile duct stent is in good position. Pneumobilia suggests patency of the stent. 4. Please refer the same day chest CTA for further evaluation of the lung bases. ACT 112: Negative or not required by law. Electronically signed by: Jordan Ramírez M.D. 11/18/2021 8:01 AM
[2021-11-18] MEDS: D5W AND 1/2NSS + 20MEQ KCL 20 MEQ/1,000 ML BAG IV SCH ×2 (08:10→18:46)
--- NOTE | 2021-11-18 08:50 | Electrocardiogram Report ---
Test Reason : Blood Pressure : / mmHG Vent. Rate : 063 BPM Atrial Rate : 063 BPM P-R Int : 180 ms QRS Dur : 076 ms QT Int : 430 ms P-R-T Axes : 044 015 047 degrees QTc Int : 440 ms Normal sinus rhythm Low voltage QRS Borderline ECG When compared with ECG of 11-NOV-2021 18:01, No significant change was found Confirmed by Gerald Collins ([id number]) on 11/18/2021 8:49:51 AM Referred By: REFERRED SELF Confirmed By:Lon Collins
--- NOTE | 2021-11-18 09:57 | CT Scan Report ---
CT ANGIOGRAM OF THE CHEST CLINICAL HISTORY: Dyspnea. Atypical chest pain. COMPARISON STUDY: Chest x-ray dated 11/11/2021. Chest CT dated 03/19/2019. TECHNIQUE: Following the IV administration of 118 cc of Optiray 300, CT angiogram of the chest was pe rformed from the upper abdomen to the thoracic inlet utilizing the pulmonary embolus protocol. Images are reviewed in the axial, sagittal, and coronal planes. 3-D MIPS images are created and assessed. I V contrast was administered without complication. A dose lowering technique was utilized adhering to the principles of ALARA. CT DOSE: 3270.66 mGy.cm FINDINGS: Thyroid: Imaged portions of the thyroid gland are normal in size and attenuation. Thoracic aorta: The thoracic aorta is normal in caliber and demonstrates standard 3-vessel arch anato my. No dissection is seen. Pulmonary vasculature: The pulmonary trunk is normal in caliber. There are no filling defects identif ied in main, lobar, or segmental pulmonary branches to suggest pulmonary embolus. Heart: The heart is normal in size and without pericardial effusion. Lungs and pleural spaces: Evaluation of the lung parenchyma is modestly degraded by motion artifact. There is no airspace consolidations or pneumonia. Trace pleural effusion is seen on the right. Depend ent atelectasis is present bilaterally. The trachea and central airways are clear. Mediastinum: There is no mediastinal lymphadenopathy. Flora: Clear. Axillae: There is no axillary lymphadenopathy. Upper abdomen: Cholecystectomy clips are noted. A gas and fluid containing collection is partially vi sualized in the gallbladder fossa. Pneumobilia is observed and there is trace perihepatic free fluid. Skeletal structures: No lytic or blastic bony lesions are seen. IMPRESSION: 1. There is no evidence of pulmonary embolus in the main, lobar, or segmental pulmonary arteries. 2. Trace right pleural effusion. 3. There is no airspace consolidation typical for pneumonia. 4. The gallbladder is surgically absent and there is a gas and fluid containing collection in the gal lbladder fossa. See report of abdominal CT performed concurrently for detailed intra-abdominal findin gs. 5. Additional findings as above. ACT 112: Negative or not required by law. Electronically signed by: Abdulaziz Silva M.D. 11/18/2021 9:56 AM
[2021-11-18] MEDS ORDERED: traMADol HCL 50 MG TABLET PO PRN (21:14)
[2021-11-18] MEDS ORDERED: LORazepam 0.5 MG TAB PO PRN (21:14)
[2021-11-18] MEDS ORDERED: ALBUTEROL HFA 8 GM INHALER INH PRN (21:14)
[2021-11-19] MEDS: PIPERACILLIN/TAZOBACTAM 3.375 GM in DEXTROSE 5% 100 ML IV SCH ×3 (00:08→16:00)
[2021-11-19] MEDS: Olopatadine 0.1 % Drops - ORDER AWAITING ACTION SCH ×3 (00:09→15:52)
[2021-11-19] MEDS: D5W AND 1/2NSS + 20MEQ KCL 20 MEQ/1,000 ML BAG IV SCH ×2 (03:41→13:36)
[2021-11-19] MEDS: MoRPHine SULFATE 4 MG/ML 1 ML CARP\\VIAL IV PRN ×2 (03:46→19:25)
[2021-11-19 05:57] LABS: Basophils # (auto) 0.06 K/uL (0-0.2); Basophils % (auto) 0.6 %; Eosinophils % (auto) 5.6 %; Hematocrit (blood only) 34.9 % (34.1-44.9); Hemoglobin 11.3 g/dl (12.0-16.0); Immature Granulocytes # (auto) 0.07 K/uL (0.00-0.02); Immature Granulocytes % (auto) 0.7 %; Lymphocytes % (auto) 19.7 %; Mean Corpuscular Hemoglobin 25.6 pg (25.0-34.0); Mean Corpuscular Hgb Conc 32.4 g/dL (32.0-36.0); Mean Corpuscular Volume 79.1 fL (80.0-100.0); Monocytes # (auto) 0.79 K/uL (0.24-0.82); Monocytes % (auto) 7.4 %; Neutrophils # (auto) 7.05 K/uL (1.4-6.5); Platelet Count 508 K/uL (130-400); RDW Coefficient of Variation 14.9 % (11.5-14.5); RDW Standard Deviation 42.8 fL (36.4-46.3); Red Blood Count 4.41 M/uL (3.93-5.22); White Blood Count 10.67 K/ul (4.8-10.8)
[2021-11-19 06:20] LABS: Albumin Globulin Ratio 1.1 (0.9-2); Albumin Level 3.5 gm/dl (3.4-5.0); Bilirubin,Total 0.5 mg/dl (0.2-1.0); Calcium 8.8 mg/dl (8.5-10.1); Creatinine Clr Calc Pharmacy 140.3 ml/min; Est GFR (African American) 115.1 ml/min; Est GFR (Non-African American) 99.3 ml/min; Globulin 3.2 gm/dl (2.5-4.0); Potassium 4.1 mmol/L (3.5-5.1); Total Protein 6.7 gm/dl (6.0-8.3)
[2021-11-19] MEDS: ONDANSETRON INJ 2 MG/ML 2 ML VIAL IV PRN (06:52)
[2021-11-19] MEDS ORDERED: busPIRone 15 MG TAB PO SCH (09:00)
[2021-11-19] MEDS ORDERED: PANTOprazole 40 MG TAB PO SCH (09:00)
[2021-11-19] MEDS ORDERED: LOSARTAN POTASSIUM 50 MG TAB PO SCH (09:00)
[2021-11-19] MEDS ORDERED: ROSUVASTATIN CALCIUM 10 MG TAB PO SCH (09:00)
[2021-11-19] MEDS ORDERED: ZINC SULFATE 220 MG CAPSULE PO SCH (09:00)
[2021-11-19] MEDS ORDERED: OXYBUTYNIN CHLORIDE XL 5 MG TABCR PO SCH (09:00)
[2021-11-19] MEDS ORDERED: FLUoxetine HCL 20 MG CAP PO SCH ×2 (09:00)
[2021-11-19] MEDS: oxyCODONE/ACETAMINOPHEN 5mg/325mg TAB PO PRN ×2 (11:28→15:58)
--- NOTE | 2021-11-19 15:42 | Surgery Progress Note ---
Date of Service November 19, 2021 Assessment & Plan (1) Postoperative abscess: Plan: pt is a 51 year-old female who presents to Er with RUQ pain, S/P laparoscopic cholecystectomy for gangrenous cholecystitis and cholelithiasis, POD 5, S/P ERCP with stent placed POD 4. IMP: spho0yo abdominal abscess? plan, I agree with to admit pt to hospital, conservative treatment first, IV fluid, iv antibiotic, control pain, repeat labs in morning, will F/U, pt agrees with the plan, I answered all questions, 11/19/2021 3:35Pm Dr. schultz post op abscess plan, I recommend to do drainage abscess by interventional radiologist, I talked to this hospital IR who can not to do this procedure, recommend to transfer other hospital, I [place] [facility] [place] [facility] who can do drainage, accepted attending- Sara Lawrence, I D/W about benefits, risks and alternatives of the transfer for IR drainage intraabdominal abscess, pt understood, she agrees with the transfer, I answered all questions, Admission and Anticipated Discharge Date Admission Date: November 18, 2021 Subjective pt is a 51 year-old female who presents to Er with RUQ pain, S/P laparoscopic cholecystectomy for gangrenous cholecystitis and cholelithiasis, POD 5, S/P ERCP with stent placed POD 4. I reviewed pt's H/P, labs, CT scan with pt, now pt feels better, no fever, 11/19/2021 3:33PM Dr. Schultz F/U intraabdominal abscess, pt is still have RUQ pain, no fever, no chills, Physical Exam Eyes: PERRL, conjunctivae normal, anicteric sclerae Neck: trachea midline, no thyromegaly Respiratory: normal respiratory effort, lungs clear to auscultation Cardiovascular: RRR, no murmur, no edema Gastrointestinal (Abdomen): tenderness at RUQ, no rebound pain, no distend, BS +, Musculoskeletal: no cyanosis or clubbing, extremities motor strength 5/5 Neurologic: patellar DTR's 2+ bilat, sensation intact Psychiatric: A+Ox3, euthymic affect Results & Data ([facility]) Vital Signs (Past 12 Hours) Vital Signs Temp Pulse Resp BP BP Pulse Ox O2 Del Method 11/19/21 15:14 36.8 C 59 L 18 151/83 H 95 Room Air 11/19/21 11:10 36.4 C L 62 16 161/83 H 95 Room Air 11/19/21 08:10 144/83 H 11/19/21 07:58 36.7 C 61 16 145/79 H 93 Room Air 11/19/21 04:05 37.1 C 58 L 16 121/75 93 Room Air Laboratory Results Abnormal lab results 11/19/21 11/19/21 Range/Units 05:21 05:21 Hgb 11.3 L (12.0-16.0) g/dl MCV 79.1 L (80.0-100.0) fL RDW Coeff of Nitin 14.9 H (11.5-14.5) % Plt Count 508 H (130-400) K/uL Neut # (Auto) 7.05 H (1.4-6.5) K/uL Eos # (Auto) 0.60 H (0-0.50) K/uL Immature Gran # (Auto) 0.07 H (0.00-0.02) K/uL BUN 5 L (6-23) mg/dl BUN/Creatinine Ratio 7.0 L (10-20) Glucose 102 H (70-99(Fasting)) mg/dl AST 10 L (13-39) U/L Alkaline Phosphatase 133 H (34-104) U/L
[2021-11-19] MEDS ORDERED: MAGNESIUM OXIDE 400 MG TAB PO SCH (21:00)
[2021-11-19] MEDS ORDERED: cloNIDine HCL 0.1 MG TAB PO SCH (21:00)
--- NOTE | 2021-11-20 08:28 | Discharge Summary (DS) ---
DATE OF ADMISSION: 11/18/2021. DATE OF DISCHARGE: 11/19/2021. ADMISSION DIAGNOSIS: Abdominal pain. Intraabdominal abscess. DISCHARGE DIAGNOSIS: Abdominal pain. Intraabdominal abscess. DETAILS OF DISCHARGE SUMMARY: This is a 51-year-old female who had a laparoscopic cholecystectomy fo r gangrenous gallbladder about 6 days ago and following day, the patient had an ERCP removal of commo n bile duct stone and the patient tolerated the procedure well. The patient was sent home about 4 da ys ago; however, the patient developed right upper quadrant pain and the patient came back to the ER, the patient had a CT scan diagnosis of possible intraabdominal abscess. We admitted the patient to [facility] and tried to do conservative treatment, giving the patient IV antibiotic to control the p ain and followed the next day. The patient still has right upper quadrant pain and the based on the abscess size around 6 cm, I recommended to do the drainage of the abscess by the interventional radio logy, and I did talk to this hospital radiology. They said they are not comfortable to do the proced ure, recommended to transfer for higher level. I contacted [facility] and they recomme nded to transfer to [facility] for percutaneous drainage of abdominal abscess by in terventional radiology. They accepted the patient. PHYSICAL EXAMINATION: VITAL SIGNS: Temperature is 36.8, respiratory rate 18, pulse is 62, blood pressure 173/94, O2 satura tion 95% on room air. GENERAL: The patient is alert, awake, oriented x3. HEENT: With limitation. NEUROLOGIC: Intact. NECK: No JVD. CHEST: Bilateral lung sounds clear. HEART: Normal S1 and S2. No murmur. ABDOMEN: Soft, mild tenderness on the right upper quadrant. No rebound pain, no distention. Bowel sounds positive. EXTREMITIES: No edema. Once [facility] accepted the patient, I did talk to the patient about the benefit, risk, and alternate with transfer for interventional radiology drainage of intraabdominal abscess. [facility] patient agreed and I answered all questions. The patient being discharged on 11/19/2021. Job ID: [id number]
[2021-11-23] MEDS ORDERED: ERGOCALCIFEROL 50,000 UNITS 1250 MCG CAP PO SCH (09:00)
== END 2021-11-19 19:31 | disposition short-term general hospital (02) | DRG 863 ==
LOC: ED 21:17 → EDINP 11-18 02:39 → 3E 11-18 21:31
DX: I10 Essential (primary) hypertension; Z91.040 Latex allergy status; L02.211 Cutaneous abscess of abdominal wall; Z88.6 Allergy status to analgesic agent; E66.01 Morbid (severe) obesity due to excess calories; Z88.8 Allergy status to other drugs, medicaments and biological substances; E11.9 Type 2 diabetes mellitus without complications; T81.49XA Infection following a procedure, other surgical site, initial encounter; Z68.41 Body mass index [BMI] 40.0-44.9, adult

== ENCOUNTER 2021-12-17 13:44 | Inpatient (IN) ==
[2021-12-17 14:47] LABS: Basophils # (auto) 0.05 K/uL (0-0.2); Basophils % (auto) 0.5 %; Eosinophils # (auto) 0.35 K/uL (0-0.50); Eosinophils % (auto) 3.2 %; Hematocrit (blood only) 45.5 % (34.1-44.9); Hemoglobin 14.4 g/dl (12.0-16.0); Immature Granulocytes # (auto) 0.05 K/uL (0.00-0.02); Immature Granulocytes % (auto) 0.5 %; Lymphocytes # (auto) 2.84 K/uL (1.2-3.4); Lymphocytes % (auto) 25.9 %; Mean Corpuscular Hemoglobin 25.6 pg (25.0-34.0); Mean Corpuscular Hgb Conc 31.6 g/dL (32.0-36.0); Mean Platelet Volume 11.1 fL (9.4-12.3); Monocytes # (auto) 0.82 K/uL (0.24-0.82); Monocytes % (auto) 7.5 %; Neutrophils # (auto) 6.86 K/uL (1.4-6.5); Neutrophils % (auto) 62.4 %; Platelet Count 437 K/uL (130-400); RDW Standard Deviation 46.2 fL (36.4-46.3); Red Blood Count 5.62 M/uL (3.93-5.22); White Blood Count 10.97 K/ul (4.8-10.8)
[2021-12-17 15:04] LABS: Albumin Globulin Ratio 1.1 (0.9-2); Albumin Level 4.6 gm/dl (3.4-5.0); BUN Creatinine Ratio 14.5 (10-20); Bilirubin,Total 0.6 mg/dl (0.2-1.0); Calcium 9.9 mg/dl (8.5-10.1); Creatinine Clr Calc Pharmacy 129.3 ml/min; Est GFR (Non-African American) 91.5 ml/min; Globulin 4.2 gm/dl (2.5-4.0); Potassium 3.9 mmol/L (3.5-5.1); Total Protein 8.8 gm/dl (6.0-8.3)
--- NOTE | 2021-12-17 18:37 | Emergency Department Note ---
History of Present Illness General Chief complaint: Referred by Doctor Stated complaint: CT SCAN, ABCESS IN STOMACH Time Seen by Provider: 12/17/21 18:23 History of Present Illness Maximum Pain Intensity: 5 51-year-old female presents emergency department was just discharged 2 days ago has been having issues with biliary drain and biliary stent status postcholecystectomy with an abscess. Patient was in the hospital the past week for 9 days she states she was discharged 2 days ago she states she followed up today and the primary care physician's office. At that time she started to have dry heaving. Her physician listen to her bowels and could not hear bowel sounds for a prolonged period of time I spoke with the GI physician and were told to come to the emergency department for further evaluation and a repeat CT scan. Patient denies current nausea vomiting fever. Patient denies abdominal pain currently. Patient has taken Percocet. There are no other mitigating or allevi ating factors Home Medications Medication Instructions Recorded Confirmed Type albuterol sulfate 90 mcg/actuation 2 puff inhalation Q4 PRN Shortness 03/19/19 12/17/21 History aerosol inhaler Of Breath Or cough buspirone 30 mg tablet 30 mg PO QAM 11/11/21 12/17/21 History clonidine HCl 0.1 mg tablet 0.1 mg PO HS 11/11/21 12/17/21 History ergocalciferol (vitamin D2) 1,250 1,250 mcg PO WK 11/11/21 12/17/21 History mcg (50,000 unit) capsule ferrous sulfate 325 mg (65 mg 325 mg PO QAM 11/11/21 12/17/21 History iron) tablet (iron) fluoxetine 20 mg capsule 20 mg PO QAM 11/11/21 12/17/21 History fluoxetine 40 mg capsule 40 mg PO QAM 11/11/21 12/17/21 History lorazepam 0.5 mg tablet 0.5 mg PO HS PRN Sleep 11/11/21 12/17/21 History losartan 50 mg-hydrochlorothiazide 1 tab PO QAM 11/11/21 12/17/21 History 12.5 mg tablet olopatadine 0.1 % eye drops 1 drp ophthalmic (eye) BID 11/11/21 12/17/21 History omeprazole 20 mg capsule,delayed 20 mg PO QAM 11/11/21 12/17/21 History release oxybutynin chloride 5 mg 5 mg PO QAM 11/11/21 12/17/21 History tablet,extended release 24 hr rosuvastatin 10 mg tablet 10 mg PO QAM 11/11/21 12/17/21 History tramadol 50 mg tablet 50 mg PO Q6H PRN migraine pain 11/11/21 12/17/21 History zinc acetate 50 mg (zinc) capsule 50 mg PO HS 11/11/21 12/17/21 History oxycodone-acetaminophen 5 mg-325 1 tab PO Q6H PRN pain #12 tabs 11/14/2104/08 Rx mg tablet magnesium oxide 500 mg tablet 500 mg PO HS 12/07/21 12/17/21 History ondansetron 4 mg disintegrating 4 mg PO DIRECTED PRN Nausea 12/07/21 12/17/21 History tablet tirzepatide 7.5 mg/0.5 mL 7.5 mg subcut WE 12/07/21 12/17/21 History subcutaneous pen injector (Kathy) metoclopramide HCl 10 mg tablet 10 mg PO AC 5 days #15 tabs 12/15/21 12/17/21 Rx Allergies Allergy/AdvReac Type Severity Reaction Status Date / Time guaifenesin [From Entex LA] Allergy Severe Anaphylaxis Verified 12/17/21 19:41 phenylephrine [From Entex LA] Allergy Severe Anaphylaxis Verified 12/17/21 19:41 phenylpropanolamine Allergy Severe Anaphylaxis Verified 12/17/21 19:41 [From Entex LA] adhesive Allergy Intermediate Hives Verified 12/17/21 19:41 latex Allergy Intermediate Hives Verified 12/17/21 19:41 aspirin Allergy Unknown does not Verified 12/17/21 19:41 take because "father was allergic" to ASA Past Med/Surg History Medical History Acute acalculous cholecystitis Anemia no hx of blood transfusion, + hx of iron infusions (09/2018) Anxiety and depression Asthma stable Cholecystitis with cholelithiasis Diabetes mellitus, type 2 diet controlled Encounter for pre-operative examination Hypertension Migraine Morbid obesity Osteoarthritis Uterine bleeding Surgical History H/O bilateral breast reduction surgery History of colonoscopy History of hysterectomy History of laparoscopy FOR ECTOPIC History of tooth extraction Family History Father Family history of diabetes mellitus Mother Family history of diabetes mellitus Grandfather Family history of diabetes mellitus Grandmother Family history of diabetes mellitus Brother Family history of diabetes mellitus Grandfather (Paternal) Family history of esophageal cancer Social History Smoking Status: Former smoker Second Hand Exposure: No; Hx Alcohol Use: Yes Alcohol type: wine and hard liquor Hx Substance Use: No Preferred Language: Turkmen Communication Ability: Effective Marketing Analyst Required: No Beliefs That Will Affect Care: None marital status: Current Living Situation: Spouse Feels Safe at Home: Yes Assistive Devices: None Review of Systems A total of 10 systems reviewed and were otherwise negative Constitutional: no fever Respiratory: no cough Gastrointestinal: + nausea; no abdominal pain Physical Exam Vital Signs Vital Signs - 24 hr 12/17/21 14:12 12/17/21 18:21 12/17/21 18:30 Temperature 36.9 C Temperature Source Temporal Artery Scan Pulse Rate 95 H 77 78 Pulse Rate [Left] Pulse Rate from SpO2 Sensor 77 76 Pulse Rhythm Regular Pulse Strength Normal Respiratory Rate 20 19 19 Respiratory Effort / Characteristics Non-Labored Spontaneous Respiratory Depth Normal Respiratory Pattern Regular Blood Pressure 144/90 H Blood Pressure [Left Radial Artery] Blood Pressure Mean 108 Blood Pressure Mean [Left Radial Artery] Blood Pressure Position Sitting Pulse Oximetry 93 96 97 Oxygen Delivery Method Room Air Sepsis Recent Fever Within 48 Hours No Sepsis New/Unexplained Change in Mental Status N/A Sepsis Action Taken by Nursing No Action Required 12/17/21 18:39 12/17/21 18:39 12/17/21 18:40 Temperature Temperature Source Pulse Rate 71 70 Pulse Rate [Left] Pulse Rate from SpO2 Sensor 70 70 Pulse Rhythm Pulse Strength Respiratory Rate 19 20 Respiratory Effort / Characteristics Respiratory Depth Respiratory Pattern Blood Pressure 133/80 Blood Pressure [Left Radial Artery] Blood Pressure Mean 97 Blood Pressure Mean [Left Radial Artery] Blood Pressure Position Pulse Oximetry 96 96 Oxygen Delivery Method Sepsis Recent Fever Within 48 Hours Sepsis New/Unexplained Change in Mental Status Sepsis Action Taken by Nursing 12/17/21 18:50 12/17/21 19:00 12/17/21 19:00 Temperature Temperature Source Pulse Rate 73 67 Pulse Rate [Left] Pulse Rate from SpO2 Sensor 73 68 Pulse Rhythm Pulse Strength Respiratory Rate 25 H 32 H Respiratory Effort / Characteristics Respiratory Depth Respiratory Pattern Blood Pressure 123/74 Blood Pressure [Left Radial Artery] Blood Pressure Mean 90 Blood Pressure Mean [Left Radial Artery] Blood Pressure Position Pulse Oximetry 95 94 Oxygen Delivery Method Sepsis Recent Fever Within 48 Hours Sepsis New/Unexplained Change in Mental Status Sepsis Action Taken by Nursing 12/17/21 20:16 12/17/21 20:58 Temperature Temperature Source Pulse Rate Pulse Rate [Left] 69 73 Pulse Rate from SpO2 Sensor Pulse Rhythm Pulse Strength Respiratory Rate 16 20 Respiratory Effort / Characteristics Non-Labored Spontaneous Non-Labored Spontaneous Respiratory Depth Normal Normal Respiratory Pattern Blood Pressure Blood Pressure [Left Radial Artery] 126/55 L 139/87 Blood Pressure Mean Blood Pressure Mean [Left Radial Artery] 78 104 Blood Pressure Position Pulse Oximetry 97 95 Oxygen Delivery Method Room Air Room Air Sepsis Recent Fever Within 48 Hours Sepsis New/Unexplained Change in Mental Status Sepsis Action Taken by Nursing GENERAL: Patient is awake alert in no acute distress patient is resting comfortably and showing no signs of anxiety EYES: The conjunctivae are clear. The pupils are round and reactive. EARS, NOSE, MOUTH AND THROAT: The nose is without any evidence of any deformity. Mucous membranes are moist. Tongue is midline. NECK: The neck is nontender and supple. RESPIRATORY: Normal respiratory effort is noted there is no evidence of wheezing rhonchi or rales CARDIOVASCULAR: Regular rate and rhythm noted there no murmurs rubs or gallops normal S1 normal S2. GASTROINTESTINAL: The abdomen is soft. Abdomen is nontender. Morbidly obese; has multiple surgical scars that are in different stages of healing and ecchymosis in the bilateral lower quadrants is decreased bowel sounds in all 4 quadrants there is no rebound rigidity or guarding. PELVIS: The Pelvis is stable. No tenderness to palpation is noted. BACK: No midline tenderness or or step-off noted range of motion in flexion extension as well as rotation no signs of muscle spasm noted MUSCULOSKELETAL/EXTREMITIES: There is no evidence of gross deformity full range of motion is noted in the hips and shoulders. SKIN: There is no obvious evidence of any rash. There are no petechiae, pallor or cyanosis noted. NEUROLOGIC: Patient is awake alert and oriented x3 strength is symmetric Course Reevaluation(s) Reevaluation #1: Patient on repeat examination was having nausea and was vomiting sputum. I have discussed the evaluation with the patient the patient's family at bedside. Patient feels very much more calm she were to stay in the hospital. Time: 21:01 Consultations Consultation #1: Case discussed with the [facility] hospitalist for admission Time: 21:01 Administered Medications Discontinued Medications Prochlorperazine 10 mg/ (Syringe) 10 mls @ 5 mls/min IV ONE ONE Stop: 12/17/21 20:36 Last Admin: 12/17/21 20:54 Dose: 5 mls/min Documented By: TERRENCE Ioversol (Optiray 350 100ml) 88 ml IV ONCE ONE Stop: 12/17/21 19:24 Last Admin: 12/17/21 19:25 Dose: 88 ml Documented By: LEON Ondansetron HCl (Ondansetron Inj 2 Mg/Ml 2 Ml Vial) 4 mg IV NOW STA Stop: 12/17/21 19:33 Last Admin: 12/17/21 19:36 Dose: 4 mg Documented By: LEON(2) Ondansetron HCl (Ondansetron Inj 2 Mg/Ml 2 Ml Vial) 4 mg IV NOW STA Stop: 12/17/21 20:36 Last Admin: 12/17/21 20:54 Dose: 4 mg Documented By: TERRENCE Prochlorperazine (Prochlorperazine 5 Mg/Ml 2 Ml Vial) Confirm Administered Dose 10 mg .ROUTE .STK-MED ONE Stop: 12/17/21 20:52 Last Admin: 12/17/21 20:54 Dose: Not Given Documented By: TERRENCE Medical Decision Making Medical Records Attestation: I reviewed the patient's medical records. Home Medications Current Medication List: was personally reviewed by me Laboratory Data Attestation: I reviewed the patient's lab results. Result diagrams: 12/17/21 14:35 12/17/21 14:35 Lab Results 12/17/21 12/17/21 Range/Units 14:35 14:35 WBC 10.97 H (4.8-10.8) K/ul RBC 5.62 H (3.93-5.22) M/uL Hgb 14.4 (12.0-16.0) g/dl Hct 45.5 H (34.1-44.9) % MCV 81.0 (80.0-100.0) fL MCH 25.6 (25.0-34.0) pg MCHC 31.6 L (32.0-36.0) g/dL RDW Std Deviation 46.2 (36.4-46.3) fL RDW Coeff of Nitin 16.0 H (11.5-14.5) % Plt Count 437 H (130-400) K/uL MPV 11.1 (9.4-12.3) fL Immature Gran % (Auto) 0.5 % Neut % (Auto) 62.4 % Lymph % (Auto) 25.9 % [place] % (Auto) 7.5 % Eos % (Auto) 3.2 % Baso % (Auto) 0.5 % Neut # (Auto) 6.86 H (1.4-6.5) K/uL Lymph # (Auto) 2.84 (1.2-3.4) K/uL [place] # (Auto) 0.82 (0.24-0.82) K/uL Eos # (Auto) 0.35 (0-0.50) K/uL Baso # (Auto) 0.05 (0-0.2) K/uL Immature Gran # (Auto) 0.05 H (0.00-0.02) K/uL Sodium 138 (136-145) mmol/L Potassium 3.9 (3.5-5.1) mmol/L Chloride 102 (98-107) mmol/L Carbon Dioxide 26 (21-32) mmol/L Anion Gap 10 (3-11) BUN 11 (6-23) mg/dl Creatinine 0.76 (0.6-1.2) mg/dl Est Cr Clr Drug Dosing 129.3 ml/min Est GFR ( Amer) 106.0 ml/min Est GFR (Non-Af Amer) 91.5 ml/min BUN/Creatinine Ratio 14.5 (10-20) Glucose 93 (70-99(Fasting)) mg/dl Calcium 9.9 (8.5-10.1) mg/dl Total Bilirubin 0.6 (0.2-1.0) mg/dl AST 17 (13-39) U/L ALT 18 (7-52) U/L Alkaline Phosphatase 75 (34-104) U/L Total Protein 8.8 H (6.0-8.3) gm/dl Albumin 4.6 (3.4-5.0) gm/dl Globulin 4.2 H (2.5-4.0) gm/dl Albumin/Globulin Ratio 1.1 (0.9-2) Lipase 47 (11-82) U/L Imaging Data Radiologist's Impression: Abdomen/Pelvis CT 12/17/21 18:[address] WITH IV CONTRAST CT DOSE: 1782.32 mGy.cm HISTORY: Acute generalized abdominal pain abd pain TECHNIQUE: Multiaxial CT images of the abdomen and pelvis were performed following the IV administration of 88 cc of Optiray, A dose lowering technique was utilized adhering to the principles of ALARA. COMPARISON STUDY: CT abdomen and pelvis 12/11/2021, 12/07/2021 FINDINGS: Clear lung bases. No pneumatosis or pneumoperitoneum. Unremarkable spleen. Unchanged punctate calcification of the pancreatic body with otherwise unremarkable appearance of the pancreas. Small bilateral adrenal gland adenomata redemonstrated measuring up to 1.8 cm. Cholecystectomy with complex fluid again noted within the gallbladder fossa measuring up to approximately 2.8 x 2.3 cm, stable from prior. A common bile duct stent appears to be in satisfactory positioning. Intrahepatic pneumobilia confirms stent patency. No chol edocholithiasis or significant biliary ductal dilation is identified. The liver is enlarged measuring up to 24 cm in length. Patent portal vein. Unremarkable kidneys without hydronephrosis. There is partial distention of the urinary bladder. Hysterectomy. Aorta and IVC are unremarkable. No lymphadenopathy identified. No bowel obstruction or bowel wall thickening. Mild wall thickening of the distal stomach adjacent to the postoperative fluid collection is unchanged. Mild colonic diverticulosis. The distal appendix measures up to 8 mm in transverse dimension and appears to be noninflamed. Unremarkable soft tissues. Degenerative changes of the spine, pelvis and hips. IMPRESSION: 1. Stable exam from the 12/11/2021 study. 2. Status post cholecystectomy with unchanged small complex fluid collection within the gallbladder fossa measuring less than 3 cm. 3. Unchanged positioning of the common bile duct stent with mild pneumobilia. 4. Mild wall thickening of the distal stomach/proximal duodenum is redemonstrated, likely reactive. 5. Mild hepatomegaly. ACT 112: Negative or not required by law. The above report was generated using voice recognition software. It may contain grammatical, syntax or spelling errors. Electronically signed by: Koby Cantrell M.D. 12/17/2021 7:55 PM MDM Narrative Medical decision making differential diagnosis includes partial small bowel obstruction, small bowel obstruction, intra-abdominal abscess, dehydration, metabolic derangement. Plan is to check labs, CT abdomen pelvis. Patient was evaluated for nausea and vomiting, CAT scan was unchanged from prior. Patient's symptoms continue to worsen the emergency department. I suspect that the patient is still having issues postoperatively. The case was discussed with the [facility] hospitalist for admission Impression & Plan Vomiting, Nausea Discharge Plan Visit Data Chief Complaint: Referred by Doctor Stated Complaint: CT SCAN, ABCESS IN STOMACH ED Provider: Joseph Alexander Discharge Problem: Vomiting, Nausea Patient Disposition: Being Evaluated by Hospitalist Forms Stand Alone Forms: My [facility] Prescriptions Prescriptions: No Action albuterol sulfate 90 mcg/actuation Hfa Aerosol Inhaler 2 puff INHALATION Q4 PRN (Reason: Shortness Of Breath Or cough) zinc acetate 50 mg (zinc) Capsule 50 mg PO HS oxybutynin chloride 5 mg tablet extended release 24hr 5 mg PO QAM omeprazole 20 mg capsule,delayed release(DR/EC) 20 mg PO QAM losartan-hydrochlorothiazide 50-12.5 mg tablet 1 tab PO QAM rosuvastatin 10 mg tablet 10 mg PO QAM fluoxetine 40 mg capsule 40 mg PO QAM Rx Instructions: TOTAL DOSE 60 MG--TAKES WITH 20 MG CAP. clonidine HCl 0.1 mg tablet 0.1 mg PO HS lorazepam 0.5 mg tablet 0.5 mg PO HS PRN (Reason: Sleep) buspirone 30 mg tablet 30 mg PO QAM fluoxetine 20 mg capsule 20 mg PO QAM Rx Instructions: TOTAL DOSE 60 MG--TAKES WITH 40 MG CAP. ergocalciferol (vitamin D2) 1,250 mcg (50,000 unit) Capsule 1,250 mcg PO WK Rx Instructions: sundays tramadol 50 mg Tablet 50 mg PO Q6H PRN (Reason: migraine pain) Rx Instructions: for migraines only olopatadine 0.1 % Drops 1 drp OPHTHALMIC (EYE) BID Rx Instructions: separate doses by at least 6-8 hours ferrous sulfate [iron] 325 mg (65 mg iron) Tablet 325 mg PO QAM oxycodone-acetaminophen 5-325 mg tablet 1 tab PO Q6H PRN (Reason: pain) Qty: 12 0RF magnesium oxide 500 mg Tablet 500 mg PO HS ondansetron 4 mg tablet,disintegrating 4 mg PO DIRECTED PRN (Reason: Nausea) Mounjaro 7.5 mg/0.5 mL Pen Injector 7.5 mg SUBCUT WE Rx Instructions: ON HOLD metoclopramide HCl 10 mg Tablet 10 mg PO AC 5 Days Qty: 15 0RF Referrals Referrals: Matilde Mao DO [Primary Care Provider] -
[2021-12-17] MEDS ORDERED: OPTIRAY 350 100ml IV ONE (19:23)
[2021-12-17] MEDS ORDERED: ONDANSETRON INJ 2 MG/ML 2 ML VIAL IV STA ×2 (19:32→20:35)
--- NOTE | 2021-12-17 19:58 | CT Scan Report ---
ABDOMEN AND PELVIS CT WITH IV CONTRAST CT DOSE: 1782.32 mGy.cm HISTORY: Acute generalized abdominal pain abd pain TECHNIQUE: Multiaxial CT images of the abdomen and pelvis were performed following the IV administrat ion of 88 cc of Optiray, A dose lowering technique was utilized adhering to the principles of ALARA. COMPARISON STUDY: CT abdomen and pelvis 12/11/2021, 12/07/2021 FINDINGS: Clear lung bases. No pneumatosis or pneumoperitoneum. Unremarkable spleen. Unchanged puncta te calcification of the pancreatic body with otherwise unremarkable appearance of the pancreas. Small bilateral adrenal gland adenomata redemonstrated measuring up to 1.8 cm. Cholecystectomy with comple x fluid again noted within the gallbladder fossa measuring up to approximately 2.8 x 2.3 cm, stable f rom prior. A common bile duct stent appears to be in satisfactory positioning. Intrahepatic pneumobil ia confirms stent patency. No choledocholithiasis or significant biliary ductal dilation is identifie d. The liver is enlarged measuring up to 24 cm in length. Patent portal vein. Unremarkable kidneys without hydronephrosis. There is partial distention of the urinary bladder. Hyst erectomy. Aorta and IVC are unremarkable. No lymphadenopathy identified. No bowel obstruction or donald l wall thickening. Mild wall thickening of the distal stomach adjacent to the postoperative fluid col lection is unchanged. Mild colonic diverticulosis. The distal appendix measures up to 8 mm in transve rse dimension and appears to be noninflamed. Unremarkable soft tissues. Degenerative changes of the s pine, pelvis and hips. IMPRESSION: 1. Stable exam from the 12/11/2021 study. 2. Status post cholecystectomy with unchanged small complex fluid collection within the gallbladder f villa measuring less than 3 cm. 3. Unchanged positioning of the common bile duct stent with mild pneumobilia. 4. Mild wall thickening of the distal stomach/proximal duodenum is redemonstrated, likely reactive. 5. Mild hepatomegaly. ACT 112: Negative or not required by law. The above report was generated using voice recognition software. It may contain grammatical, syntax o r spelling errors. Electronically signed by: Koby Cantrell M.D. 12/17/2021 7:55 PM
[2021-12-17] MEDS ORDERED: PROCHLORPERAZINE 10 MG in SYRINGE 8 ML IV ONE (20:35)
[2021-12-17] MEDS ORDERED: PROCHLORPERAZINE 5 MG/ML 2 ML VIAL ONE (20:51)
--- NOTE | 2021-12-17 21:21 | History & Physical Report ---
Date of Service December 17, 2021 Assessment & Plan (1) History of biliary duct stent placement: (2) Abdominal pain: (3) Nausea: Plan: - Admit for observation - WBC is 10.97 today, only slightly increased compared to over the past weekend before discharge on 12/15/21. She now returns only 2 days later for recurrent nausea, abdominal pain, afebrile. -CT of the abdomen is reviewed, s/p cholecystectomy, showing unchanged, small complex 3 cm fluid accumulation within the gallbladder fossa, unchanged positioning of the CBD stent with mild pneumobilia. -Received Compazine and Zofran in the ER, continue antiemetics, improved -Diarrhea x 3 today, check stool culture/c diff with recent antibiotic course -Consult GI, Dr. Roman aware that the patient coming to the ER -Consider initiation of antibiotics per GI, had completed course upon discharge on 12/15 with ertapenem -LR at 80ml/hr for hydration, NPO for now, consider clear liquid diet if nausea improves (4) Diabetes mellitus, type 2: Plan: -ISS with Accu-Cheks ACHS -No previous A1C available for review, obtain with am labs (5) Hypertension: Plan: - May continue antihypertensives including clonidine, losartan-HCTZ - Cr./BUN currently at baseline - BP currently stable (6) Morbid obesity: Plan: -BMI of 40.6, diet and exercise to be encouraged throughout hospital stay (7) Anxiety and depression: Plan: -Continue Prozac 60 mg daily, lorazepam 0.5 mg at HS prn, BuSpar 30 mg QAM DVT PPx: - teds, scds, Lovenox subcu CODE: Full code Dispo: From home, likely to remain in the hospital x 1-2 days for observation Please refer to Dr. Stephen's addendum for further additions, assessment and plan. History of Present Illness Chief Complaint: Abdominal pain Primary Care Provider: Matilde Mao, This is a 51-year-old female with PMHx of obstructive sleep apnea, major depressive disorder, hypertension, diabetes type 2, moderate persistent asthma and recent laparoscopic cholecystectomy, intra-abdominal abscess status post drainage and also biliary stent placement on 11/13/2021 has been complaining of abdominal pain with nausea. Recent hospitalizations as follows: 12/07-10/31 treated for postoperative intra-abdominal abscess where she u nderwent ERCP with stent exchange, extraction of CBD stones by Dr. Roman on 12/09. She was also treated for E. coli ESBL urinary tract infection treated with ertapenem, completed antibiotic course while hospitalized. She was seen today by her PCP in follow-up from recent hospital discharge. She reported that her abdominal pain started to return after going home on Wednesday from the hospital. She went out to eat Wednesday evening and ordered a cup of onion soup, however due to nausea was not able to eat it. Her incision from previous lap cholecystectomy started to ooze pus last night. It is clear/red/yellow in color. Pt c/o being tender to the touch. Denies fevers, sweats or chills. She does feels some lightheadedness and dizziness but has been unable to tolerate p.o. intake much due to nausea. She has been taking Reglan as directed. In regards to urinary tract infection, she denies any dysuria, burning, increased frequency and states that she has never had symptoms with UTI. Only complaint she has with urination is that she seems to have some difficulty starting to urinate, but does pee and feels that her bladder is completely empty when she finishes. She also has had diarrhea over the past 2 days, 3 times so far today. Outpatient communication with GI was held prior to the patient coming to the ER upon epic chart review and there was concern for possible rebuilding/accumulation of fluid intra-abdominally. Pt is agreeable to staying overnight in the hospital. Allergies Allergy/AdvReac Type Severity Reaction Status Date / Time guaifenesin [From Entex LA] Allergy Severe Anaphylaxis Verified 12/17/21 19:41 phenylephrine [From Entex LA] Allergy Severe Anaphylaxis Verified 12/17/21 19:41 phenylpropanolamine Allergy Severe Anaphylaxis Verified 12/17/21 19:41 [From Entex LA] adhesive Allergy Intermediate Hives Verified 12/17/21 19:41 latex Allergy Intermediate Hives Verified 12/17/21 19:41 aspirin Allergy Unknown does not Verified 12/17/21 19:41 take because "father was allergic" to ASA Home Medications Medication Instructions Recorded Confirmed Type albuterol sulfate 90 mcg/actuation 2 puff inhalation Q4 PRN Shortness 03/19/19 12/17/21 History aerosol inhaler Of Breath Or cough buspirone 30 mg tablet 30 mg PO QAM 11/11/21 12/17/21 History clonidine HCl 0.1 mg tablet 0.1 mg PO HS 11/11/21 12/17/21 History ergocalciferol (vitamin D2) 1,250 1,250 mcg PO WK 11/11/21 12/17/21 History mcg (50,000 unit) capsule ferrous sulfate 325 mg (65 mg 325 mg PO QAM 11/11/21 12/17/21 History iron) tablet (iron) fluoxetine 20 mg capsule 20 mg PO QAM 11/11/21 12/17/21 History fluoxetine 40 mg capsule 40 mg PO QAM 11/11/21 12/17/21 History lorazepam 0.5 mg tablet 0.5 mg PO HS PRN Sleep 11/11/21 12/17/21 History losartan 50 mg-hydrochlorothiazide 1 tab PO QAM 11/11/21 12/17/21 History 12.5 mg tablet olopatadine 0.1 % eye drops 1 drp ophthalmic (eye) BID 11/11/21 12/17/21 History omeprazole 20 mg capsule,delayed 20 mg PO QAM 11/11/21 12/17/21 History release oxybutynin chloride 5 mg 5 mg PO QAM 11/11/21 12/17/21 History tablet,extended release 24 hr rosuvastatin 10 mg tablet 10 mg PO QAM 11/11/21 12/17/21 History tramadol 50 mg tablet 50 mg PO Q6H PRN migraine pain 11/11/21 12/17/21 History zinc acetate 50 mg (zinc) capsule 50 mg PO HS 11/11/21 12/17/21 History oxycodone-acetaminophen 5 mg-325 1 tab PO Q6H PRN pain #12 tabs 11/14/21 12/17/21 Rx mg tablet magnesium oxide 500 mg tablet 500 mg PO HS 12/07/21 12/17/21 History ondansetron 4 mg disintegrating 4 mg PO DIRECTED PRN Nausea 12/07/21 12/17/21 History tablet tirzepatide 7.5 mg/0.5 mL 7.5 mg subcut WE 12/07/21 12/17/21 History subcutaneous pen injector (Mouneboni) metoclopramide HCl 10 mg tablet 10 mg PO AC 5 days #15 tabs 12/15/21 12/17/21 Rx Past Med/Surg History Medical History Acute acalculous cholecystitis Anemia no hx of blood transfusion, + hx of iron infusions (09/2018) Anxiety and depression Asthma stable Cholecystitis with cholelithiasis Diabetes mellitus, type 2 diet controlled Encounter for pre-operative examination Hypertension Migraine Morbid obesity Osteoarthritis Uterine bleeding Surgical History (Updated 12/17/21 @ 21:05 by Batsheva Quick PA-C) H/O bilateral breast reduction surgery History of biliary duct stent placement History of colonoscopy History of hysterectomy History of laparoscopy FOR ECTOPIC History of tooth extraction Family History Father Family history of diabetes mellitus Mother Family history of diabetes mellitus Grandfather Family history of diabetes mellitus Grandmother Family history of diabetes mellitus Brother Family history of diabetes mellitus Grandfather (Paternal) Family history of esophageal cancer Social History Smoking Status: Former smoker Second Hand Exposure: No; Hx Alcohol Use: Yes Alcohol type: wine and hard liquor Hx Substance Use: No Preferred Language: Chadian Communication Ability: Effective Rake Operator Required: No Beliefs That Will Affect Care: None marital status: Current Living Situation: Spouse Feels Safe at Home: Yes Assistive Devices: None Review of Systems Review of Systems: Constitutional: No fever, sweats or chills Eyes: No diplopia, no worsening or blurred vision ENT: normal hearing, no trouble swallowing Respiratory: No cough, sputum, dyspnea at rest or on exertion Cardiovascular: No chest pain, tightness or palpitations Abdomen: As per HPI, mild in RUQ and LUQ, + nausea, 1 episode of vomiting earlier today, + diarrhea x 3 today, no constipation Musculoskeletal: No joint pain, calf pain, swelling Neurologic: No weakness, numbness/tingling, or balance problems Psychiatric: + anxiety and depression on medication Skin: No rash or itch Physical Exam Physical Exam: General: awake, alert, no apparent distress, + obese with BMI of 40.6 Head: Normocephalic, atraumatic ENT: PERRL, EOMI, no pharyngeal exudate, mucous membranes moist Chest: Clear to auscultation, on room air, no adventitious breath sounds Cardiac: Regular rate and rhythm, no murmur, no JVD, normal peripheral pulses, good capillary refill Abdominal: NABS x 4 quadrants, soft, nondistended, + healing incision sites from previous cholecystectomy, scabbing over lesions, no pus, no surrounding erythema, patient jumps with minimal palpation to the abdomen, no rebound or guarding Extremities: Normal inspection, no peripheral edema or erythema, calfs nontender to palpation Psych: Normal mood and affect Neuro: AAO x 3, strength intact bilaterally and rated 5/5, no motor deficits, speech is clear, no peripheral sensory deficits Results & Data Results & Data ([facility]) Vital Signs (Past 12 Hours) Vital Signs Temp Pulse Pulse Resp BP BP Pulse Ox 12/17/21 20:58 73 20 139/87 95 12/17/21 20:16 69 16 126/55 L 97 12/17/21 19:00 67 32 H 94 12/17/21 19:00 123/74 12/17/21 18:50 73 25 H 95 12/17/21 18:40 70 20 96 12/17/21 18:39 133/80 12/17/21 18:39 71 19 96 12/17/21 18:30 78 19 97 12/17/21 18:21 77 19 96 12/17/21 14:12 36.9 C 95 H 20 144/90 H 93 O2 Del Method 12/17/21 20:58 Room Air 12/17/21 20:16 Room Air 12/17/21 19:00 12/17/21 19:00 12/17/21 18:50 12/17/21 18:40 12/17/21 18:39 12/17/21 18:39 12/17/21 18:30 12/17/21 18:21 12/17/21 14:12 Room Air Laboratory Results 12/17/21 12/17/21 14:35 14:35 WBC 10.97 H RBC 5.62 H Hgb 14.4 Hct 45.5 H MCV 81.0 MCH 25.6 MCHC 31.6 L RDW Std Deviation 46.2 RDW Coeff of Nitin 16.0 H Plt Count 437 H MPV 11.1 Immature Gran % (Auto) 0.5 Neut % (Auto) 62.4 Lymph % (Auto) 25.9 [place] % (Auto) 7.5 Eos % (Auto) 3.2 Baso % (Auto) 0.5 Neut # (Auto) 6.86 H Lymph # (Auto) 2.84 [place] # (Auto) 0.82 Eos # (Auto) 0.35 Baso # (Auto) 0.05 Immature Gran # (Auto) 0.05 H Sodium 138 Potassium 3.9 Chloride 102 Carbon Dioxide 26 Anion Gap 10 BUN 11 Creatinine 0.76 Est Cr Clr Drug Dosing 129.3 Est GFR ( Amer) 106.0 Est GFR (Non-Af Amer) 91.5 BUN/Creatinine Ratio 14.5 Glucose 93 Calcium 9.9 Total Bilirubin 0.6 AST 17 ALT 18 Alkaline Phosphatase 75 Total Protein 8.8 H Albumin 4.6 Globulin 4.2 H Albumin/Globulin Ratio 1.1 Lipase 47 Diagnostic Findings Abdomen/Pelvis CT 12/17/21 18:[address] WITH IV CONTRAST CT DOSE: 1782.32 mGy.cm HISTORY: Acute generalized abdominal pain abd pain TECHNIQUE: Multiaxial CT images of the abdomen and pelvis were performed followi ng the IV administration of 88 cc of Optiray, A dose lowering technique was utilized adhering to the principles of ALARA. COMPARISON STUDY: CT abdomen and pelvis 12/11/2021, 12/07/2021 FINDINGS: Clear lung bases. No pneumatosis or pneumoperitoneum. Unremarkable spleen. Unchanged punctate calcification of the pancreatic body with otherwise unremarkable appearance of the pancreas. Small bilateral adrenal gland adenomata redemonstrated measuring up to 1.8 cm. Cholecystectomy with complex fluid again noted within the gallbladder fossa measuring up to approximately 2.8 x 2.3 cm, stable from prior. A common bile duct stent appears to be in satisfactory positioning. Intrahepatic pneumobilia confirms stent patency. No choledocholithiasis or significant biliary ductal dilation is identified. The liver is enlarged measuring up to 24 cm in length. Patent portal vein. Unremarkable kidneys without hydronephrosis. There is partial distention of the urinary bladder. Hysterectomy. Aorta and IVC are unremarkable. No lymphadenopathy identified. No bowel obstruction or bowel wall thickening. Mild wall thickening of the distal stomach adjacent to the postoperative fluid collection is unchanged. Mild colonic diverticulosis. The distal appendix measures up to 8 mm in transverse dimension and appears to be noninflamed. Unremarkable soft tissues. Degenerative changes of the spine, pelvis and hips. IMPRESSION: 1. Stable exam from the 12/11/2021 study. 2. Status post cholecystectomy with unchanged small complex fluid collection within the gallbladder fossa measuring less than 3 cm. 3. Unchanged positioning of the common bile duct stent with mild pneumobilia. 4. Mild wall thickening of the distal stomach/proximal duodenum is redemonstrated, likely reactive. 5. Mild hepatomegaly. ACT 112: Negative or not required by law. The above report was generated using voice recognition software. It may contain grammatical, syntax or spelling errors. Electronically signed by: Koby Cantrell M.D. 12/17/2021 7:55 PM Supervising Physician Co-Signing Physician Notes IM ATTENDING : Patient seen and examined. History obtained from patient and records. Preceding documentation by Ms. Adrienne Quick PA-C reviewed. FINAL ASSESSMENT AND PLAN as follows : Persistent abdominal pain, nausea, vomiting symptoms Persistent postcholecystectomy intra-abdominal abscess status post IR drainage, biliary stent placement No sepsis for now DM2 on Mounjaro, well-controlled as of recent hemoglobin A1c of 5.22 October 2021 Chronic anemia, hemoglobin better than baseline likely secondary to hemoconcentration hx ESBL Past tobacco abuse Case discussed with Dr. Roman (GI specialist on-call). Transfer to tertiary care center recommended for IR drainage of persistent intra-abdominal abscess. Patient prefers [facility] following last admission under General Surgery service last month. Case discussed with Dr. Louis ([facility] general surgeon on-call). He would like to review images first (to be pushed into [facility] [employer] EMR as per request) and confer with [facility] interventional radiologist in a.m. if fluid collection amenable to IR drainage prior to accepting patient transfer. He recommends [facility] admission for now and follow-up evaluation by General Surgery. OBS F Zosyn N.p.o. after midnight in anticipation of procedural intervention. Will request AM provider contact [facility] General Surgery via [facility] (contact number [phone]) in a.m. to follow-up on patient disposition. General surgery follow-up evaluation for intra-abdominal abscess as per [facility] general surgeon recommendations. Basal bolus insulin adjusted for n.p.o. status, ISS BG goal 1 10-1 40 DVT prophylaxis per Lovenox subcu Full code Text document was generated using [employer] voice recognition software. It may contain grammatical or spelling errors. Kindly contact undersigned for clarification of any documentation item in question.
[2021-12-17] MEDS ORDERED: LACTATED RINGER'S 1,000 ML IV ONE (21:30)
[2021-12-17] MEDS ORDERED: PIPERACILLIN/TAZOBACTAM 4.5 GM/120 ML BAG IV ONE (21:30)
[2021-12-17 22:36] LABS: Appearance Urine Clear (Clear); Bacteria Urine Automated 1+ (Negative); Bilirubin Urine Negative (Negative); Blood Urine 1+ (Negative); Color Urine Yellow; Epithelial Cell Urine Auto >30 /lpf (0-5); Glucose Urine UA Negative (Negative); Ketones Urine Trace (Negative); Leukocyte Esterase Urine 2+ (Negative); Nitrite Urine Negative (Negative); Protein Urine Trace (Negative); RBC Urine Automated 0-4 /hpf (0-4); Specific Gravity Urine 1.021 (1.000-1.030); Urobilinogen Urine Negative (Negative); pH Urine 5.5 (4.5-7.5)
[2021-12-17] MEDS ORDERED: oxyCODONE HCL IR 5 MG TAB (IMMEDIATE RELEASE) PO PRN (23:41)
[2021-12-17] MEDS ORDERED: KETOROLAC TROMETHAMINE 15 MG/ML VIAL IV PRN (23:41)
[2021-12-18] MEDS ORDERED: ACETAMINOPHEN 325 MG TAB PO PRN (01:56)
[2021-12-18] MEDS ORDERED: DEXTROSE 50% 50 ML SYRINGE IV PRN (01:56)
[2021-12-18] MEDS ORDERED: CARBOHYDRATES FOR HYPOGLYCEMIA PO PRN (01:56)
[2021-12-18] MEDS ORDERED: GLUCOSE 40% GEL 15 GM TUBE PO PRN (01:56)
[2021-12-18] MEDS ORDERED: LORazepam 0.5 MG TAB PO PRN (01:56)
[2021-12-18] MEDS ORDERED: GLUCAGON FOR INJ 1 MG VIAL SQ PRN (01:56)
[2021-12-18] MEDS ORDERED: GLUCOSE 10 TAB/TUBE PO PRN (01:56)
[2021-12-18] MEDS ORDERED: Nursing to Pharmacy Communication SCH (03:15)
[2021-12-18] MEDS: cloNIDine HCL 0.1 MG TAB PO SCH ×2 (03:27→20:14)
[2021-12-18] MEDS: INSULIN ASPART PER UNIT SC SCH ×3 (03:32→11:40)
[2021-12-18 06:42] LABS: Basophils # (auto) 0.04 K/uL (0-0.2); Basophils % (auto) 0.5 %; Eosinophils # (auto) 0.39 K/uL (0-0.50); Eosinophils % (auto) 4.5 %; Hemoglobin 12.9 g/dl (12.0-16.0); Immature Granulocytes # (auto) 0.04 K/uL (0.00-0.02); Immature Granulocytes % (auto) 0.5 %; Lymphocytes # (auto) 2.11 K/uL (1.2-3.4); Lymphocytes % (auto) 24.1 %; Mean Corpuscular Hgb Conc 32.3 g/dL (32.0-36.0); Mean Corpuscular Volume 80.5 fL (80.0-100.0); Mean Platelet Volume 11.1 fL (9.4-12.3); Monocytes # (auto) 0.75 K/uL (0.24-0.82); Monocytes % (auto) 8.6 %; Neutrophils # (auto) 5.43 K/uL (1.4-6.5); Neutrophils % (auto) 61.8 %; Platelet Count 345 K/uL (130-400); RDW Standard Deviation 46.3 fL (36.4-46.3); Red Blood Count 4.97 M/uL (3.93-5.22); White Blood Count 8.76 K/ul (4.8-10.8)
[2021-12-18 07:08] LABS: BUN Creatinine Ratio 13.6 (10-20); Calcium 9.2 mg/dl (8.5-10.1); Creatinine Clr Calc Pharmacy 148.3 ml/min; Est GFR (African American) 119.4 ml/min; Potassium 3.7 mmol/L (3.5-5.1)
[2021-12-18] MEDS: OXYBUTYNIN CHLORIDE XL 5 MG TABCR PO SCH (08:02)
[2021-12-18] MEDS: PANTOprazole 40 MG TAB PO SCH (08:02)
[2021-12-18] MEDS: FERROUS SULFATE 325 MG TAB PO SCH (08:03)
[2021-12-18] MEDS: busPIRone 15 MG TAB PO SCH (08:03)
[2021-12-18] MEDS: ROSUVASTATIN CALCIUM 10 MG TAB PO SCH (08:03)
[2021-12-18] MEDS: METOCLOPRAMIDE HCL 10 MG TABLET PO SCH ×3 (08:03→16:48)
[2021-12-18] MEDS: FLUoxetine HCL 20 MG CAP PO SCH (08:03)
[2021-12-18] MEDS: ENOXAPARIN INJ 40 MG/0.4 ML SYR SQ SCH (08:04)
[2021-12-18] MEDS: [UNRECOGNIZED DRUG - REMARK] SCH ×2 (08:05→16:50)
--- NOTE | 2021-12-18 08:45 | Surgery Consultation ---
Date of Consultation December 18, 2021 Assessment & Plan (1) Abdominal pain: pt is a 51 year-old female who presents to Er with RUQ pain and diarrhea, S/P lap clarke, and ERCP, POD, near 5 weeks, and drainage abdominal abscess 4 weeks ago, gail drainage was remove 2 weeks ago, IMP: abdominal pain, fluid collect at gallbladder fossa, no change, no indication for drainage now, conservative treatment, po antibiotic, check C-diff, GI consult for possible EGD to R/O Ulcer PT + OP , off bed twice a day, repeat labs in morning will F/U, Supervising Physician Co-Signing Physician Notes IM ATTENDING : Patient seen and examined. History obtained from patient and records. Preceding documentation by Ms. Adrienne Quick PA-C reviewed. FINAL ASSESSMENT AND PLAN as follows : Persistent abdominal pain, nausea, vomiting symptoms Persistent postcholecystectomy intra-abdominal abscess status post IR drainage, biliary stent placement No sepsis for now DM2 on Mounjaro, well-controlled as of recent hemoglobin A1c of 5.22 October 2021 Chronic anemia, hemoglobin better than baseline likely secondary to hemoconcentration hx ESBL Past tobacco abuse Case discussed with Dr. Roman (GI specialist on-call). Transfer to tertiary care center recommended for IR drainage of persistent intra-abdominal abscess. Patient prefers [facility] following last admission under General Surgery service last month. Case discussed with Dr. Louis ([facility] general surgeon on-call). He would like to review images first (to be pushed into [facility] MD-IT EMR as per request) and confer with [facility] interventional radiologist in a.m. if fluid collection amenable to IR drainage prior to accepting patient transfer. He recommends [facility] admission for now and follow-up evaluation by General Surgery. OBS GMF Zosyn N.p.o. after midnight in anticipation of procedural intervention. Will request AM provider contact [facility] General Surgery via [facility] (contact number [phone]) in a.m. to follow-up on patient disposition. General surgery follow-up evaluation for intra-abdominal abscess as per [facility] general surgeon recommendations. Basal bolus insulin adjusted for n.p.o. status, ISS BG goal 1 10-1 40 DVT prophylaxis per Lovenox subcu Full code Text document was generated using [employer] recognition software. It may contain grammatical or spelling errors. Kindly contact undersigned for clarification of any documentation item in question. History of Present Illness Reason for Consultation: abdominal abscess Requesting Physician: Elsy Mcnulty DO Attending Physician: Elsy Mcnulty DO History of Present Illness [facility], [id number] History & Physical Report Signed Patient:VANDA ROSA Admit Date:12/17/21 MR#:[id number] Att Phy:Shashank Chow MD Acct ID:[id number] [place] Phy:Matilde Mao DO Date:1970 History of Present Illness Chief Complaint: Abdominal pain Primary Care Provider: Matilde Mao DO This is a 51-year-old female with PMHx of obstructive sleep apnea, major depressive disorder, hypertension, diabetes type 2, moderate persistent asthma and recent laparoscopic cholecystectomy, intra-abdominal abscess status post drainage and also biliary stent placement on 11/13/2021 has been complaining of abdominal pain with nausea. Recent hospitalizations as follows: 12/07-12/15treated for postoperative intra-abdominal abscess where she underwent ERCP with stent exchange, extraction of CBD stones by Dr. Roman on 12/09. She was also treated for E. coli ESBL urinary tract infection treated with ertapenem, completed antibiotic course while hospitalized. She was seen today by her PCP in follow-up from recent hospital discharge. She reported that her abdominal pain started to return after going home on Wednesday from the hospital. She went out to eat Wednesday evening and ordered a cup of onion soup, however due to nausea was not able to eat it. Her incision from previous lap cholecystectomy started to ooze pus last night. It is clear/ red/yellow in color. Pt c/o being tender to the touch. Denies fevers, sweats or chills. She does feels some lightheadedness and dizziness but has been unable to tolerate p.o. intake much due to nausea. She has been taking Reglan as directed. In regards to urinary tract infection, she denies any dysuria, burning, increased frequency and states that she has never had symptoms with UTI. Only complaint she has with urination is that she seems to have some difficulty starting to urinate, but does pee and feels that her bladder is completely empty when she finishes. She also has had diarrhea over the past 2 days, 3 times so far today. Outpatient communication with GI was held prior to the patient coming to the ER upon epic chart review and there was concern for possible rebuilding/accumulation of fluid intra-abdominally. Pt is agreeable to staying overnight in the hospital. I ( Maia Kendrick MD ) got a call for consult abdominal abscess, I reviewed pt's H/P, labs, CT scan with pt, pt said she has mild RUQ pain, with diarrhea, 3 times a day, no fever, Allergies Allergy/AdvReac Type Severity Reaction Status Date / Time guaifenesin [From Entex LA] Allergy Severe Anaphylaxis Verified 12/17/21 19:41 phenylephrine [From Entex LA] Allergy Severe Anaphylaxis Verified 12/17/21 19:41 phenylpropanolamine Allergy Severe Anaphylaxis Verified 12/17/21 19:41 [From Entex LA] adhesive Allergy Intermediate Hives Verified 12/17/21 19:41 latex Allergy Intermediate Hives Verified 12/17/21 19:41 aspirin Allergy Unknown does not Verified 12/17/21 19:41 take because "father was allergic" to ASA Home Medications Medication Instructions Recorded Confirmed Type albuterol sulfate 90 mcg/actuation 2 puff inhalation Q4 PRN Shortness 03/19/19 12/17/21 History aerosol inhaler Of Breath Or cough buspirone 30 mg tablet 30 mg PO QAM 11/11/21 12/17/21 History clonidine HCl 0.1 mg tablet 0.1 mg PO HS 11/11/21 12/17/21 His tory ergocalciferol (vitamin D2) 1,250 1,250 mcg PO WK 11/11/21 History mcg (50,000 unit) capsule ferrous sulfate 325 mg (65 mg 325 mg PO QAM 11/11/21 12/17/21 H istory iron) tablet (iron) fluoxetine 20 mg capsule 20 mg PO QAM 11/11/21 12/17/21 Histor y fluoxetine 40 mg capsule 40 mg PO QAM 11/11/21 12/17/21 Histor y lorazepam 0.5 mg tablet 0.5 mg PO HS PRN Sleep 11/11/21 12/17/21 Hist ory losartan 50 mg-hydrochlorothiazide 1 tab PO QAM 11/11/2112/17 History 12.5 mg tablet olopatadine 0.1 % eye drops 1 drp ophthalmic (eye) BID 11/11/2112/17 History F omeprazole 20 mg capsule,delayed 20 mg PO QAM 11/11/21 2 History release oxybutynin chloride 5 mg 5 mg PO QAM 11/11/21 12/17/21 Histor y tablet,extended release 24 hr rosuvastatin 10 mg tablet 10 mg PO QAM 11/11/21 12/17/21 Histo ry tramadol 50 mg tablet 50 mg PO Q6H PRN migraine pain 11/11/21 2 History zinc acetate 50 mg (zinc) capsule 50 mg PO HS 11/11/21 History oxycodone-acetaminophen 5 mg-325 1 tab PO Q6H PRN pain #12 tabs 11/14/21 12/17/21 Rx mg tablet magnesium oxide 500 mg tablet 500 mg PO HS 12/07/21 12/17/21 H istory ondansetron 4 mg disintegrating 4 mg PO DIRECTED PRN Nausea 12/07/21 12/17/21 History tablet tirzepatide 7.5 mg/0.5 mL 7.5 mg subcut WE 12/07/21 12/17/21 Histo ry subcutaneous pen injector (Kathy) metoclopramide HCl 10 mg tablet 10 mg PO AC 5 days #15 tabs 12/15/21 12/17/21 Rx Past Med/Surg History Medical History Acute acalculous cholecystitis Anemia no hx of blood transfusion, + hx of iron infusions (09/2018)Anxiety and depression Asthma stableCholecystitis with cholelithiasis Diabetes mellitus, type 2 diet controlledEncounter for pre-operative examination Hypertension Migraine Morbid obesity Osteoarthritis Uterine bleeding Surgical History(Updated 12/17/21 @ 21:05 by Batsheva Quick PA-C) H/O bilateral breast reduction surgery History of biliary duct stent placement History of colonoscopy History of hysterectomy History of laparoscopy FOR ECTOPIC PREGNANCYHistory of tooth extraction Family History Father Family history of diabetes mellitusMother Family history of diabetes mellitusGrandfather Family history of diabetes mellitusGrandmother Family history of diabetes mellitusBrother Family history of diabetes mellitusGrandfather (Paternal) Family history of esophageal cancer Social History Smoking Status: Former smoker Second Hand Exposure: No; Hx Alcohol Use: Yes Alcohol type: wine and hard liquor Hx Substance Use: No Preferred Language: Haitian Communication Ability: Effective Probate Clerk Required: No Beliefs That Will Affect Care: None marital status: Current Living Situation: Spouse Feels Safe at Home: Yes Assistive Devices: None Review of Systems Review of Systems: Constitutional: No fever, sweats or chills Eyes: No diplopia, no worsening or blurred vision ENT: normal hearing, no trouble swallowing Respiratory: No cough, sputum, dyspnea at rest or on exertion Cardiovascular: No chest pain, tightness or palpitations Abdomen: As per HPI, mild in RUQ and LUQ, + nausea, 1 episode of vomiting earlier today, + diarrhea x 3 today, no constipation Musculoskeletal: No joint pain, calf pain, swelling Neurologic: No weakness, numbness/tingling, or balance problems Psychiatric: + anxiety and depression on medication Skin: No rash or itch Allergies Allergy/AdvReac Type Severity Reaction Status Date / Time guaifenesin [From Entex LA] Allergy Severe Anaphylaxis Verified 12/17/21 19:41 phenylephrine [From Entex LA] Allergy Severe Anaphylaxis Verified 12/17/21 19:41 phenylpropanolamine Allergy Severe Anaphylaxis Verified 12/17/21 19:41 [From Entex LA] adhesive Allergy Intermediate Hives Verified 12/17/21 19:41 latex Allergy Intermediate Hives Verified 12/17/21 19:41 aspirin Allergy Unknown does not Verified 12/17/21 19:41 take because "father was allergic" to ASA Home Medications Medication Instructions Recorded Confirmed Type albuterol sulfate 90 mcg/actuation 2 puff inhalation Q4 PRN Shortness 03/19/19 12/17/21 History aerosol inhaler Of Breath Or cough buspirone 30 mg tablet 30 mg PO QAM 11/11/21 12/17/21 History clonidine HCl 0.1 mg tablet 0.1 mg PO HS 11/11/21 12/17/21 History ergocalciferol (vitamin D2) 1,250 1,250 mcg PO WK 11/11/21 12/17/21 History mcg (50,000 unit) capsule ferrous sulfate 325 mg (65 mg 325 mg PO QAM 11/11/21 12/17/21 History iron) tablet (iron) fluoxetine 20 mg capsule 20 mg PO QAM 11/11/21 12/17/21 History fluoxetine 40 mg capsule 40 mg PO QAM 11/11/21 12/17/21 History lorazepam 0.5 mg tablet 0.5 mg PO HS PRN Sleep 11/11/21 12/17/21 History losartan 50 mg-hydrochlorothiazide 1 tab PO QAM 11/11/21 12/17/21 History 12.5 mg tablet olopatadine 0.1 % eye drops 1 drp ophthalmic (eye) BID 11/11/21 12/17/21 History omeprazole 20 mg capsule,delayed 20 mg PO QAM 11/11/21 12/17/21 History release oxybutynin chloride 5 mg 5 mg PO QAM 11/11/21 12/17/21 History tablet,extended release 24 hr rosuvastatin 10 mg tablet 10 mg PO QAM 11/11/21 12/17/21 History tramadol 50 mg tablet 50 mg PO Q6H PRN migraine pain 11/11/21 12/17/21 History zinc acetate 50 mg (zinc) capsule 50 mg PO HS 11/11/21 12/17/21 History oxycodone-acetaminophen 5 mg-325 1 tab PO Q6H PRN pain #12 tabs 11/14/21 12/17/21 Rx mg tablet magnesium oxide 500 mg tablet 500 mg PO HS 12/07/21 12/17/21 History ondansetron 4 mg disintegrating 4 mg PO DIRECTED PRN Nausea 12/07/21 12/17/21 History tablet tirzepatide 7.5 mg/0.5 mL 7.5 mg subcut WE 12/07/21 12/17/21 History subcutaneous pen injector (Mounmargero) metoclopramide HCl 10 mg tablet 10 mg PO AC 5 days #15 tabs 12/15/21 12/17/21 Rx Patient History Medical History Acute acalculous cholecystitis Anemia no hx of blood transfusion, + hx of iron infusions (09/2018) Anxiety and depression Asthma stable Cholecystitis with cholelithiasis Diabetes mellitus, type 2 diet controlled Encounter for pre-operative examination Hypertension Migraine Morbid obesity Osteoarthritis Uterine bleeding Surgical History (Updated 12/17/21 @ 21:05 by Batsheva Quick PA-C) H/O bilateral breast reduction surgery History of biliary duct stent placement History of colonoscopy History of hysterectomy History of laparoscopy FOR ECTOPIC History of tooth extraction Family History Father Family history of diabetes mellitus Mother Family history of diabetes mellitus Grandfather Family history of diabetes mellitus Grandmother Family history of diabetes mellitus Brother Family history of diabetes mellitus Grandfather (Paternal) Family history of esophageal cancer Social History Smoking Status: Former smoker Second Hand Exposure: No; Hx Alcohol Use: Yes Alcohol type: wine and hard liquor Hx Substance Use: No Preferred Language: Haitian Communication Ability: Effective Probate Clerk Required: No Beliefs That Will Affect Care: None marital status: Current Living Situation: Spouse and Other Current Living Situation Comment: daughter Other Information That Helps Us Care for You: No Feels Safe at Home: Yes Assistive Devices: Glasses Physical Exam Constitutional: no distress Eyes: PERRL, conjunctivae normal, anicteric sclerae Neck: trachea midline, no thyromegaly Respiratory: normal respiratory effort, lungs clear to auscultation Cardiovascular: RRR, no murmur, no edema Gastrointestinal (Abdomen): soft, mild tenderness at RUQ, much better than last week, no rebound pain ,no distend, BS +, Musculoskeletal: no cyanosis or clubbing, extremities motor strength 5/5 Neurologic: patellar DTR's 2+ bilat, sensation intact Psychiatric: A+Ox3, euthymic affect Results & Data ([facility]) Vital Signs (Past 12 Hours) Vital Signs Pulse Resp BP BP Pulse Ox O2 Del Method 12/18/21 07:00 61 16 115/76 94 Room Air 12/18/21 06:01 73 113/75 12/18/21 03:30 59 L 12 108/51 L 96 Room Air 12/18/21 00:55 63 16 97 Room Air 12/17/21 22:00 71 20 95 Room Air 12/17/21 20:58 73 20 139/87 95 Room Air Laboratory Results Abnormal lab results 12/17/21 12/17/21 12/17/21 Range/Units 14:35 14:35 21:50 WBC 10.97 H (4.8-10.8) K/ul RBC 5.62 H (3.93-5.22) M/uL Hct 45.5 H (34.1-44.9) % MCHC 31.6 L (32.0-36.0) g/dL RDW Coeff of Nitin 16.0 H (11.5-14.5) % Plt Count 437 H (130-400) K/uL Neut # (Auto) 6.86 H (1.4-6.5) K/uL Immature Gran # (Auto) 0.05 H (0.00-0.02) K/uL Total Protein 8.8 H (6.0-8.3) gm/dl Globulin 4.2 H (2.5-4.0) gm/dl Urine Protein Trace H (Negative) Urine Ketones Trace H (Negative) Urine Blood 1+ H (Negative) Ur Leukocyte Esterase 2+ H (Negative) Urine WBC (Auto) 5-10 H (0-5) /hpf U Epithel Cells (Auto) >30 H (0-5) /lpf Urine Bacteria (Auto) 1+ H (Negative) Urine Yeast Budding A (None Prsent) 12/18/21 Range/Units 06:28 WBC (4.8-10.8) K/ul RBC (3.93-5.22) M/uL Hct (34.1-44.9) % MCHC (32.0-36.0) g/dL RDW Coeff of Nitin 16.0 H (11.5-14.5) % Plt Count (130-400) K/uL Neut # (Auto) (1.4-6.5) K/uL Immature Gran # (Auto) 0.04 H (0.00-0.02) K/uL Total Protein (6.0-8.3) gm/dl Globulin (2.5-4.0) gm/dl Urine Protein (Negative) Urine Ketones (Negative) Urine Blood (Negative) Ur Leukocyte Esterase (Negative) Urine WBC (Auto) (0-5) /hpf U Epithel Cells (Auto) (0-5) /lpf Urine Bacteria (Auto) (Negative) Urine Yeast (None Prsent) Diagnostic Findings ABDOMEN AND PELVIS CT WITH IV CONTRAST CT DOSE: 1782.32 mGy.cm HISTORY: Acute generalized abdominal pain abd pain TECHNIQUE: Multiaxial CT images of the abdomen and pelvis were performed following the IV administration of 88 cc of Optiray, A dose lowering technique was utilized adhering to the principles of ALARA. COMPARISON STUDY: CT abdomen and pelvis 12/11/2021, 12/07/2021 FINDINGS: Clear lung bases. No pneumatosis or pneumoperitoneum. Unremarkable spleen. Unchanged punctate calcification of the pancreatic body with otherwise unremarkable appearance of the pancreas. Small bilateral adrenal gland adenomata redemonstrated measuring up to 1.8 cm. Cholecystectomy with complex fluid again noted within the gallbladder fossa measuring up to approximately 2.8 x 2.3 cm, stable from prior. A common bile duct stent appears to be in satisfactory positioning. Intrahepatic pneumobilia confirms stent patency. No choledocholithiasis or significant biliary ductal dilation is identified. The liver is enlarged measuring up to 24 cm in length. Patent portal vein. Unremarkable kidneys without hydronephrosis. There is partial distention of the urinary bladder. Hysterectomy. Aorta and IVC are unremarkable. No lymphadenopathy identified. No bowel obstruction or bowel wall thickening. Mild wall thickening of the distal stomach adjacent to the postoperative fluid collection is unchanged. Mild colonic diverticulosis. The distal appendix measures up to 8 mm in transverse dimension and appears to be noninflamed. Unremarkable soft tissues. Degenerative changes of the spine, pelvis and hips. IMPRESSION: 1. Stable exam from the 12/11/2021 study. 2. Status post cholecystectomy with unchanged small complex fluid collection within the gallbladder fossa measuring less than 3 cm. 3. Unchanged positioning of the common bile duct stent with mild pneumobilia. 4. Mild wall thickening of the distal stomach/proximal duodenum is redemonstrated, likely reactive. 5. Mild hepatomegaly.
[2021-12-18] MEDS ORDERED: FLUoxetine HCL 20 MG CAP PO SCH (09:00)
[2021-12-18] MEDS: PIPERACILLIN/TAZOBACTAM 4.5 GM in DEXTROSE 5% 100 ML IV SCH ×2 (09:04→16:48)
[2021-12-18] MEDS ORDERED: LACTATED RINGER'S 1,000 ML IV SCH (10:00)
--- NOTE | 2021-12-18 11:00 | Gastrointestinal Consultation ---
Date of Consultation December 18, 2021 Assessment & Plan (1) Nausea & vomiting: Actually nausea, and dry heaving. Sometimes productive of stomach acid/phlegm but not foods. Plan EGD today. If normal, would consider NM GES. Will discuss possible repeat IR drainage of gallbladder fossa fluid collection. Further recommendations to follow EGD. Supervising Physician Co-Signing Physician Notes Attending attestation I have seen, examined this patient, and agree with the findings and above by our mid-level provider PRINCE Dey, with the following additions: EGD today History of Present Illness Reason for Consultation: Vomiting, EGD to r/o ulcer Requesting Physician: Dr. Kendrick Attending Physician: Elsy Mcnulty DO History of Present Illness Ms. Roxi Huerta is a 51 yr old female pt of Dr. Alex keene a hx of obesity, DM- 2, HTN, Anxiety/Depression, Sleep apnea on CPAP who underwent lap choley in October complicated by an intra-abdominal abscess status S/P IR drainage and ERCP w bile duct stent placement on 11/13/21. She has had ongoing problems with nausea and dry heaving since the time of the surgery. She had been admitted for those symptoms last week, being discharged from that admission on 12/15. In addition to the nausea/dry heaves, she has also has a lot of abdominal pain though most recently the pain is not constant. It is located in the right middle abdomen and the epigastric area and feels like sore muscles from dry heaving. Overall, she tells me that she is improving, getting stronger, having less pain and the nausea and dry heaving is occurring only postprandially, but she can prevent it by laying down after eating. During her hospital follow-up at the PCP, serosanguineous drainage was noted from the incision where the drain had been inserted and she described nausea, had hypoactive bowel sounds the PCP contacted Dr. Roman who had done her ERCP. He advised ED evaluation. She arrived in the ED yesterday afternoon. There, repeat CT scan with continued fluid collection in the gallbladder fossa, 2.8 cm stable from previous. No evidence of gastric abnormalities or bowel obstruction. Though she hasn't had recent EGD, she did undergo EUS just prior to the ERCP w/o any noted esophageal or bile duct abnormalities. Of note, she is on the new GLP-1, GIP agonist for DM. This can sometimes cause slow stomach emptying and nausea. She held this since about 10 days ago - so should have low levels or none in her system at this time. During that last admission, she was started on metoclopramide 10 mg before meals which she has continued. It is a weekly injectable medication. Also of note, she had a UTI during that last admission. Allergies Allergy/AdvReac Type Severity Reaction Status Date / Time guaifenesin [From Entex LA] Allergy Severe Anaphylaxis Verified 12/17/21 19:41 phenylephrine [From Entex LA] Allergy Severe Anaphylaxis Verified 12/17/21 19:41 phenylpropanolamine Allergy Severe Anaphylaxis Verified 12/17/21 19:41 [From Entex LA] adhesive Allergy Intermediate Hives Verified 12/17/21 19:41 latex Allergy Intermediate Hives Verified 12/17/21 19:41 aspirin Allergy Unknown does not Verified 12/17/21 19:41 take because "father was allergic" to ASA Home Medications Medication Instructions Recorded Confirmed Type albuterol sulfate 90 mcg/actuation 2 puff inhalation Q4 PRN Shortness 03/19/19 12/17/21 History aerosol inhaler Of Breath Or cough buspirone 30 mg tablet 30 mg PO QAM 11/11/21 12/17/21 History clonidine HCl 0.1 mg tablet 0.1 mg PO HS 11/11/21 12/17/21 History ergocalciferol (vitamin D2) 1,250 1,250 mcg PO WK 11/11/21 12/17/21 History mcg (50,000 unit) capsule ferrous sulfate 325 mg (65 mg 325 mg PO QAM 11/11/21 12/17/21 History iron) tablet (iron) fluoxetine 20 mg capsule 20 mg PO QAM 11/11/21 12/17/21 History fluoxetine 40 mg capsule 40 mg PO QAM 11/11/21 12/17/21 History lorazepam 0.5 mg tablet 0.5 mg PO HS PRN Sleep 11/11/21 12/17/21 History losartan 50 mg-hydrochlorothiazide 1 tab PO QAM 11/11/21 12/17/21 History 12.5 mg tablet olopatadine 0.1 % eye drops 1 drp ophthalmic (eye) BID 11/11/21 12/17/21 History omeprazole 20 mg capsule,delayed 20 mg PO QAM 11/11/21 12/17/21 History release oxybutynin chloride 5 mg 5 mg PO QAM 11/11/21 12/17/21 History tablet,extended release 24 hr rosuvastatin 10 mg tablet 10 mg PO QAM 11/11/21 12/17/21 History tramadol 50 mg tablet 50 mg PO Q6H PRN migraine pain 11/11/21 12/17/21 History zinc acetate 50 mg (zinc) capsule 50 mg PO HS 11/11/21 12/17/21 History oxycodone-acetaminophen 5 mg-325 1 tab PO Q6H PRN pain #12 tabs 11/14/21 12/17/21 Rx mg tablet magnesium oxide 500 mg tablet 500 mg PO HS 12/07/21 12/17/21 History ondansetron 4 mg disintegrating 4 mg PO DIRECTED PRN Nausea 12/07/21 12/17/21 History tablet tirzepatide 7.5 mg/0.5 mL 7.5 mg subcut WE 12/07/21 12/17/21 History subcutaneous pen injector (Kathy) metoclopramide HCl 10 mg tablet 10 mg PO AC 5 days #15 tabs 12/15/21 12/17/21 Rx Patient History Medical History Acute acalculous cholecystitis Anemia no hx of blood transfusion, + hx of iron infusions (09/2018) Anxiety and depression Asthma stable Cholecystitis with cholelithiasis Diabetes mellitus, type 2 diet controlled Encounter for pre-operative examination Hypertension Migraine Morbid obesity Osteoarthritis Uterine bleeding Surgical History H/O bilateral breast reduction surgery History of biliary duct stent placement History of colonoscopy History of hysterectomy History of laparoscopy FOR ECTOPIC History of tooth extraction Family History Father Family history of diabetes mellitus Mother Family history of diabetes mellitus Grandfather Family history of diabetes mellitus Grandmother Family history of diabetes mellitus Brother Family history of diabetes mellitus Grandfather (Paternal) Family history of esophageal cancer Social History Smoking Status: Former smoker Second Hand Exposure: No; Hx Alcohol Use: Yes Alcohol type: wine and hard liquor Hx Substance Use: No Preferred Language: Icelandic Communication Ability: Effective Social Work Lecturer Required: No Beliefs That Will Affect Care: None marital status: Current Living Situation: Spouse and Other Current Living Situation Comment: daughter Other Information That Helps Us Care for You: No Feels Safe at Home: Yes Assistive Devices: Glasses Review of Systems Review of Systems: ROS: Gen: + some mild lightheadedness with ambulating for a long time - does find if brief ambulation. Otherwise denies weakness. No fevers, weight loss Eyes: No eye redness, or pain, no recent vision changes Resp: No SOB, no cough Cardio: No palpitations/irregular beats, no chest pain GI: As per HPI : Denies pain on urination Skin: No jaundice, itching or new rashes A total of 12 systems were reviewed, all others (-) Physical Exam Constitutional: no distress Eyes: PERRL, conjunctivae normal, anicteric sclerae Neck: trachea midline, no thyromegaly Respiratory: normal respiratory effort, lungs clear to auscultation Cardiovascular: RRR, no murmur, no edema Gastrointestinal (Abdomen): soft, mild tenderness in the right mid abdomen, much better than last week, no rebound pain, no distend, BS +, Musculoskeletal: no cyanosis or clubbing, extremities motor strength 5/5 Neurologic: patellar DTR's 2+ bilat, sensation intact Psychiatric: A+Ox3, euthymic affect Lymphatic: no cervical or axillary lymphadenopathy Results & Data ([facility]) Vital Signs (Past 12 Hours) Vital Signs Pulse Resp BP Pulse Ox O2 Del Method 12/18/21 09:05 64 16 118/71 94 Room Air 12/18/21 07:00 61 16 115/76 94 Room Air 12/18/21 06:01 73 113/75 12/18/21 03:30 59 L 12 108/51 L 96 Room Air 12/18/21 00:55 63 16 97 Room Air Laboratory Results WBC 8.7, Hb 12.9, HCT 40, PLT S3-4-5, PT 11.4, INR 1.1, NA 137, K3.7, CL 104, CO2 25, BUN 9, CR 0.6, glucose 95. Lipase 47. LFTs are normal. Diagnostic Findings CTAP w IV contrast 11/2/22: 1. Stable exam from the 12/11/2021 study. 2. Status post cholecystectomy with unchanged small complex fluid collection within the gallbladder fossa measuring less than 3 cm. 3. Unchanged positioning of the common bile duct stent with mild pneumobilia. 4. Mild wall thickening of the distal stomach/proximal duodenum is redemonstrated, likely reactive. 5. Mild hepatomegaly.
--- NOTE | 2021-12-18 11:13 | Hospitalist Progress Note ---
Date of Service December 18, 2021 Assessment & Plan (1) History of biliary duct stent placement: (2) Abdominal pain: (3) Nausea: Plan: She again returns with abdominal pain nausea vomiting and new expression of pus like substance from her wound. A CT of the abdomen and pelvis was repeated again revealing unchanged small complex recent major fluid accumulation in the gallbladder fossa with mild pneumobilia and unchanged positioning of the common bile duct stent recently placed as noted above. She also reports some diarrhea which is ongoing and given recent antibiotics a stool culture has been ordered. She is tolerating clear liquids at this point and is requesting an advancement in her diet. Surgery is not recommending IR drainage at this time and she continues on IV Zosyn. GI is also following. We will request infectious disease evaluation and recommendations regarding the need for ongoing antibiotics given multiple rounds of intravenous antibiotics recently and nontoxic appearance. For now continue Zosyn, hold IV fluids (4) Diabetes mellitus, type 2: Plan: Very well controlled on outpatient GLP-1 agonist. She has not needed any insulin coverage in the last 24 hours with well-controlled sugars. We will stop blood sugar checks at this time, no need for diabetic diet or insulin coverage. Would allow patient to continue with her weekly injections if she has a prolonge d stay. She will need to bring this from home as this is nonformulary. (5) Hypertension: Plan: chroinc, stable cont current medical therapy (6) Morbid obesity: Plan: lifestyle changes recommended (7) Anxiety and depression: Plan: chronic, stable. Continue Prozac 60 mg daily, lorazepam 0.5 mg at HS prn, BuSpar 30 mg QAM (8) DVT prophylaxis: Plan: Lovenox Full Dispo: From home, likely to remain in the hospital x 1-2 days for observation, await ID recommendations Elsy Mcnulty DO [facility] and [facility]ticipated Discharge Date Admission Date: December 17, 2021 Subjective cholecystectomy on 11/12/2021 for acute cholecystitis followed by subsequent ERCP with bile duct stent placement on 11/13/2021. She was discharged on 11/14/2021 and returned on 11/18/2021 with a complication of abdominal abscess. She was admitted by the surgical team and IR drainage of abscess was recommended. She was discharged to [facility] for interventional radiology procedure on 11/20/21. After finishing an antibiotic course she represented on 12/07/2021 with abdominal pain nausea and vomiting. CT scan of the abdomen pelvis revealed fluid collection that was decreased in size after abdominal abscess was drained. IV Zosyn was started and she was reevaluated by both general surgery and GI. A stent exchange was performed on 12/09/2021. She was again continued on IV antibiotics. She had a urine culture that was growing E. coli ESBL and was switched to a course of ertapenem. She was discharged on 12/15/2021 and unfortunately developed abdominal pain, nausea and vomiting as well as expression of pus like substance out of one of her laparoscopic wounds. She was readmitted yesterday and appears nontoxic. She is now able to tolerate clear liquids and is requesting regular food. She remains on Zosyn pending ID consultation given multiple rounds of IV antibiotics recently and persistent 3 cm fluid collection within the gallbladder fossa. She reports persistent but improved abdominal pain with similar quality as she has had over the last couple of months. Review of Systems Review of Systems: All systems reviewed negative except as indicated above. Physical Exam Physical Exam: CONSTITUTIONAL: obese, vitals as above, generally well- appearing, NAD EYES: normal conjunctivae, no scleral icterus ENT: external ear and nose normal, oropharynx clear,MMM NECK: trachea midline RESPIRATORY: clear to auscultation bilaterally, no crackles, rales or wheezes, normal respiratory effort CARDIOVASCULAR: regular rate and rhythm, S1 and 2 heard without murmurs, gallops or rubs, no JVD, no peripheral edema CHEST: inspection of chest was normal GASTROINTESTINAL: soft, TTP in LLQ and suprapubic region. multiple well healed laparoscopic incisions are present and closed. No surrounding erythema. MUSCULOSKELETAL: strength 5/5 throughout, head is normocephalic and atraumatic SKIN: warm and dry NEUROLOGIC: CN 2-12 grossly intact, no sensory deficit, normal cognition, normal speech, no tremor PSYCHIATRIC: alert cooperative and oriented to person, place and time. Euthymic mood, makes good eye contact, language grossly intact, recent and remote memory grossly intact. Results & Data Results & Data ([facility]) Vital Signs (Past 12 Hours) Vital Signs Pulse Resp BP Pulse Ox O2 Del Method 12/18/21 09:05 64 16 118/71 94 Room Air 12/18/21 07:00 61 16 115/76 94 Room Air 12/18/21 06:01 73 113/75 12/18/21 03:30 59 L 12 108/51 L 96 Room Air 12/18/21 00:55 63 16 97 Room Air Laboratory Results Short CBC 12/17/21 12/18/21 Range/Units 14:35 06:28 WBC 10.97 H 8.76 (4.8-10.8) K/ul Hgb 14.4 12.9 (12.0-16.0) g/dl Hct 45.5 H 40.0 (34.1-44.9) % Plt Count 437 H 345 (130-400) K/uL BMP 12/17/21 12/18/21 14:35 06:28 Sodium 138 137 Potassium 3.9 3.7 Chloride 102 104 Carbon Dioxide 26 25 BUN 11 9 Creatinine 0.76 0.66 Glucose 93 95 Calcium 9.9 9.2 Liver Function 12/17/21 Range/Units 14:35 Total Bilirubin 0.6 (0.2-1.0) mg/dl AST 17 (13-39) U/L ALT 18 (7-52) U/L Alkaline Phosphatase 75 (34-104) U/L Albumin 4.6 (3.4-5.0) gm/dl Urine 12/17/21 Range/Units 21:50 Urine Color Yellow Urine Appearance Clear (Clear) Urine pH 5.5 (4.5-7.5) Ur Specific [place] 1.021 (1.000-1.030) Urine Protein Trace H (Negative) Urine Glucose (UA) Negative (Negative) Medications Administered Current Inpatient Medications Acetaminophen (Acetaminophen 325 Mg Tab) 650 mg PO Q6H PRN PRN Reason: Fever/pain Stop: 01/17/22 01:55 Buspirone HCl (Buspirone 15 Mg Tab) 30 mg PO QAM MARKO Stop: 01/17/22 08:59 Last Admin: 12/18/21 08:03 Dose: 30 mg Clonidine HCl (Clonidine Hcl 0.1 Mg Tab) 0.1 mg PO HS MARKO Stop: 01/17/22 01:55 Last Admin: 12/18/21 03:27 Dose: 0.1 mg Dextrose (Dextrose 50% 50 Ml Syringe) 25 - 50 ml IV UD PRN; Protocol PRN Reason: Hypoglycemia Protocol Stop: 01/17/22 01:55 Enoxaparin Sodium (Enoxaparin Inj 40 Mg/0.4 Ml Syr) 40 mg SQ QAM [facility] Stop: 01/17/22 08:59 Last Admin: 12/18/21 08:04 Dose: 40 mg Ferrous Sulfate (Ferrous Sulfate 325 Mg Tab) 325 mg PO QAM [facility] Stop: 01/17/22 08:59 Last Admin: 12/18/21 08:03 Dose: 325 mg Fluoxetine HCl (Fluoxetine Hcl 20 Mg Cap) 60 mg PO QAM [facility] Stop: 01/17/22 08:59 Last Admin: 12/18/21 08:03 Dose: 60 mg Glucagon (Glucagon For Inj 1 Mg Vial) 1 mg SQ UD PRN; Protocol PRN Reason: Hypoglycemia Protocol Stop: 01/17/22 01:55 Glucose (Glucose 40% Gel 15 Gm Tube) 15 - 30 gm PO UD PRN; Protocol PRN Reason: Hypoglycemia Protocol Stop: 01/17/22 01:55 Glucose (Glucose 10 Tab/Tube) 4 - 8 tab PO UD PRN; Protocol PRN Reason: Hypoglycemia Treatment Stop: 01/17/22 01:55 Promethazine HCl 12.5 mg/ (Sodium Chloride) 50.5 mls @ 202 mls/hr IV Q6H PRN PRN Reason: Nausea And Vomiting Stop: 01/17/22 01:55 Piperacillin Sod/Tazobactam (Sod 4.5 gm/ Dextrose) 120 mls @ 30 mls/hr IV Q8H [facility]; Protocol Stop: 12/28/21 03:59 Last Admin: 12/18/21 09:04 Dose: 30 mls/hr Lactated Ringer's (Lr) 1,000 mls @ 80 mls/hr IV .[id number] [facility] Stop: 01/17/22 09:59 Last Admin: 12/18/21 09:09 Dose: Not Given Insulin Aspart (Insulin Aspart Per Unit) 0 units SC ACHS [facility] Stop: 01/17/22 01:55 Last Admin: 12/18/21 07:42 Dose: Not Given Ketorolac Tromethamine (Ketorolac Tromethamine 15 Mg/Ml Vial) 15 mg IV Q6H PRN PRN Reason: Pain Stop: 12/22/21 23:40 Lorazepam (Lorazepam 0.5 Mg Tab) 0.5 mg PO HS PRN PRN Reason: Sleep Stop: 01/17/22 01:55 Metoclopramide HCl (Metoclopramide Hcl 10 Mg Tablet) 10 mg PO AC [facility] Stop: 01/17/22 07:29 Last Admin: 12/18/21 08:03 Dose: 10 mg Miscellaneous (Order Awaiting Action: Olopatadine 0.1 % Drops) 1 each N/A QS [facility] Stop: 01/17/22 07:59 Last Admin: 12/18/21 08:05 Dose: Not Given Miscellaneous (Carbohydrates For Hypoglycemia ) 15 - 30 gm PO UD PRN PRN Reason: Hypoglycemia Protocol Stop: 01/17/22 01:55 Oxybutynin Chloride (Oxybutynin Chloride Xl 5 Mg Tabcr) 5 mg PO QAM [facility] Stop: 01/17/22 08:59 Last Admin: 12/18/21 08:02 Dose: 5 mg Oxycodone HCl (Oxycodone Hcl Ir 5 Mg Tab (Immediate Release)) 5 mg PO Q4H PRN PRN Reason: Pain Stop: 12/31/21 23:40 Pantoprazole Sodium (Pantoprazole 40 Mg Tab) 40 mg PO QAM [facility] Stop: 01/17/22 08:59 Last Admin: 12/18/21 08:02 Dose: 40 mg Rosuvastatin Calcium (Rosuvastatin Calcium 10 Mg Tab) 10 mg PO QAM [facility] Stop: 01/17/22 08:59 Last Admin: 12/18/21 08:03 Dose: 10 mg
[2021-12-18] MEDS ORDERED: LIDOCAINE 2% MPF LOCAL 5 ML VIAL INFIL ONE (11:56)
[2021-12-18] MEDS ORDERED: PROPOFOL IV EMULSION 10 MG/ML 20 ML VIAL IV ONE (11:56)
[2021-12-18] MEDS ORDERED: MIDAZOLAM HCL 1 MG/ML 2ML VIAL ONE (11:56)
[2021-12-18] MEDS ORDERED: ONDANSETRON INJ 2 MG/ML 2 ML VIAL ONE (11:56)
--- NOTE | 2021-12-18 12:20 | Anesthesiology Consultation ---
Date of Service December 18, 2021 History Surgery Operation Date: 12/18/21 17:30 Proposed Procedures p Esophagogastroduodenoscopy Dr Sexton - Antonio Sexton MD Height/Weight Height: 5 ft 9.75 in Weight: 128.4 kg Allergies Allergy/AdvReac Type Severity Reaction Status Date / Time guaifenesin [From Entex LA] Allergy Severe Anaphylaxis Verified 12/17/21 19:41 phenylephrine [From Entex LA] Allergy Severe Anaphylaxis Verified 12/17/21 19:41 phenylpropanolamine Allergy Severe Anaphylaxis Verified 12/17/21 19:41 [From Entex LA] adhesive Allergy Intermediate Hives Verified 12/17/21 19:41 latex Allergy Intermediate Hives Verified 12/17/21 19:41 aspirin Allergy Unknown does not Verified 12/17/21 19:41 take because "father was allergic" to ASA Medications Home Medications Medication Instructions Recorded Confirmed Last Taken albuterol sulfate 90 mcg/actuation 2 puff inhalation Q4 PRN Shortness 03/19/19 12/17/21 09/08/19 aerosol inhaler Of Breath Or cough buspirone 30 mg tablet 30 mg PO QAM 11/11/21 12/17/21 12/17/21 clonidine HCl 0.1 mg tablet 0.1 mg PO HS 11/11/21 12/17/21 12/16/21 ergocalciferol (vitamin D2) 1,250 1,250 mcg PO WK 11/11/21 12/17/21 12/14/21 mcg (50,000 unit) capsule ferrous sulfate 325 mg (65 mg 325 mg PO QAM 11/11/21 12/17/21 12/17/21 iron) tablet (iron) fluoxetine 20 mg capsule 20 mg PO QAM 11/11/21 12/17/21 12/17/21 fluoxetine 40 mg capsule 40 mg PO QAM 11/11/21 12/17/21 12/17/21 lorazepam 0.5 mg tablet 0.5 mg PO HS PRN Sleep 11/11/21 12/17/21 2 Weeks Ago ~11/04/21 losartan 50 mg-hydrochlorothiazide 1 tab PO QAM 11/11/21 12/17/21 12/17/21 12.5 mg tablet olopatadine 0.1 % eye drops 1 drp ophthalmic (eye) BID 0912/17/21 12/17/21 08:00 omeprazole 20 mg capsule,delayed 20 mg PO QAM 11/11/21 12/17/21 12/17/21 release oxybutynin chloride 5 mg 5 mg PO QAM 11/11/21 12/17/21 12/17/21 tablet,extended release 24 hr rosuvastatin 10 mg tablet 10 mg PO QAM 11/11/21 12/17/21 12/17/21 tramadol 50 mg tablet 50 mg PO Q6H PRN migraine pain 11/11/21 12/17/21 1 Week Ago ~11/11/21 zinc acetate 50 mg (zinc) capsule 50 mg PO HS 11/11/21 12/17/21 12/16/21 oxycodone-acetaminophen 5 mg-325 1 tab PO Q6H PRN pain #12 tabs 11/14/21 12/17/21 12/17/21 mg tablet magnesium oxide 500 mg tablet 500 mg PO HS 12/07/21 12/17/21 12/16/21 ondansetron 4 mg disintegrating 4 mg PO DIRECTED PRN Nausea 12/07/21 12/17/21 12/17/21 tablet tirzepatide 7.5 mg/0.5 mL 7.5 mg subcut WE 12/07/21 12/17/21 12/07/21 subcutaneous pen injector (Kathy) metoclopramide HCl 10 mg tablet 10 mg PO AC 5 days #15 tabs 12/15/21 12/17/21 12/17/21 08:00 Active Medications Generic Name Dose Route Start Last Admin Trade Name Jeffrey PRN Reason Stop Dose Admin Buspirone HCl 30 mg 12/18/21 09:00 12/18/21 08:03 Buspirone 15 Mg Tab PO 01/17/22 08:59 30 mg QAM MARKO Administration Clonidine HCl 0.1 mg 12/18/21 01:56 12/18/21 03:27 Clonidine Hcl 0.1 Mg Tab PO 01/17/22 01:55 0.1 mg HS MARKO Administration Enoxaparin Sodium 40 mg 12/18/21 09:00 12/18/21 08:04 Enoxaparin Inj 40 Mg/0.4 Ml Syr SQ 01/17/22 08:59 40 mg QAM MARKO Administration Ferrous Sulfate 325 mg 12/18/21 09:00 12/18/21 08:03 Ferrous Sulfate 325 Mg Tab PO 01/17/22 08:59 325 mg QAM MARKO Administration Fluoxetine HCl 60 mg 12/18/21 09:00 12/18/21 08:03 Fluoxetine Hcl 20 Mg Cap PO 01/17/22 08:59 60 mg QAM MARKO Administration Piperacillin Sod/Tazobactam 120 mls @ 30 mls/hr 12/18/21 04:00 12/18/21 09:04 Sod 4.5 gm/ Dextrose IV 12/28/21 03:59 30 mls/hr Q8H MARKO Administration Protocol Lactated Ringer's 1,000 mls @ 80 mls/hr 12/18/21 10:00 12/18/21 09:09 Lr IV 01/17/22 09:59 Not Given .[id number] MARKO Insulin Aspart 0 units 12/18/21 01:56 12/18/21 11:40 Insulin Aspart Per Unit SC 01/17/22 01:55 Not Given ACHS MARKO Metoclopramide HCl 10 mg 12/18/21 07:30 12/18/21 11:37 Metoclopramide Hcl 10 Mg Tablet PO 01/17/22 07:29 10 mg AC MARKO Administration Miscellaneous 1 each 12/18/21 08:00 12/18/21 08:05 Order Awaiting Action: Olopatadine 0.1 % Drops N/A 01/17/22 07:59 Not Given QS MARKO Oxybutynin Chloride 5 mg 12/18/21 09:00 12/18/21 08:02 Oxybutynin Chloride Xl 5 Mg Tabcr PO 01/17/22 08:59 5 mg QAM MARKO Administration Pantoprazole Sodium 40 mg 12/18/21 09:00 12/18/21 08:02 Pantoprazole 40 Mg Tab PO 01/17/22 08:59 40 mg QAM MARKO Administration Rosuvastatin Calcium 10 mg 12/18/21 09:00 12/18/21 08:03 Rosuvastatin Calcium 10 Mg Tab PO 01/17/22 08:59 10 mg QAM MARKO Administration Past Medical History Medical History Acute acalculous cholecystitis Anemia no hx of blood transfusion, + hx of iron infusions (09/2018) Anxiety and depression Asthma stable Cholecystitis with cholelithiasis Diabetes mellitus, type 2 diet controlled Encounter for pre-operative examination Hypertension Migraine Morbid obesity Osteoarthritis Uterine bleeding Exercise / Class Metabolic Activity II 4-5 Yardwork/Stairs/Walk up hill Past Family History Family History Father Family history of diabetes mellitus Mother Family history of diabetes mellitus Grandfather Family history of diabetes mellitus Grandmother Family history of diabetes mellitus Brother Family history of diabetes mellitus Grandfather (Paternal) Family history of esophageal cancer Past Surgical History Surgical History H/O bilateral breast reduction surgery History of biliary duct stent placement History of colonoscopy History of hysterectomy History of laparoscopy FOR ECTOPIC History of tooth extraction Past Anesthesia History No Hx of Anesthesia Complications and No Family Hx of Anesthesia Complications History of PONV No Hx of PONV Social History Smoking Status: Former smoker Hx Alcohol Use: Yes Alcohol type: wine and hard liquor alcohol intake frequency: holidays/special occasions only Hx Substance Use: No substance use type: does not use Physical Exam Vital Signs Last Vital Signs Temp 36.9 C 12/17/21 14:12 Pulse 64 12/18/21 09:05 Resp 16 12/18/21 09:05 BP 118/71 12/18/21 09:05 Pulse Ox 94 12/18/21 09:05 O2 Del Method 12/18/21 09:05 Testing Laboratory Results 12/18/21 06:28 12/18/21 06:28 Urine Color Yellow 12/17/21 21:50 Urine Appearance Clear (Clear) 12/17/21 21:50 Urine pH 5.5 (4.5-7.5) 12/17/21 21:50 Ur Specific [place] 1.021 (1.000-1.030) 12/17/21 21:50 Urine Protein Trace (Negative) H 12/17/21 21:50 Urine Glucose (UA) Negative (Negative) 12/17/21 21:50 Urine Ketones Trace (Negative) H 12/17/21 21:50 Urine Nitrite Negative (Negative) 12/17/21 21:50 Ur Leukocyte Esterase 2+ (Negative) H 12/17/21 21:50 Urine WBC (Auto) 5-10 /hpf (0-5) H 12/17/21 21:50 Urine RBC (Auto) 0-4 /hpf (0-4) 12/17/21 21:50 U Hyaline Cast (Auto) 1-5 /lpf (0-5) 12/17/21 21:50 U Epithel Cells (Auto) >30 /lpf (0-5) H 12/17/21 21:50 Urine Bacteria (Auto) 1+ (Negative) H 12/17/21 21:50 12/18/21 12/18/21 12/18/21 11:36 07:21 03:12 POC Glucose 98 97 78
[2021-12-18] MEDS ORDERED: fentaNYL citrate 100 MCG/2 ML VIAL ONE (12:34)
--- NOTE | 2021-12-18 12:55 | GI REPORT ---
Patient Name: Roxi Huerta Procedure Date: 12/18/2021 12:32 PM Date of : 1970 Admit Type: Inpatient Age: 51 Gender: Female Attending MD: Antonio Sexton MD Procedure: Upper GI endoscopy Providers: Antonio Sexton MD Referring MD: Maia Cook . Md Indications: Nausea Medicines: Monitored Anesthesia Care Complications: No immediate complications. Estimated blood loss: None. Estimated Blood Loss: Estimated blood loss: none. Procedure: Pre-Anesthesia Assessment: - Pre-Anesthesia Assessment: - Prior to the procedure, a History and Physical was performed, and patient medications, allergies and sensitivities were reviewed. The patient's tolerance of previous anesthesia was reviewed. Please see [facility] for complete details. - The risks and benefits of the procedure and the sedation options and risks were discussed with the patient. All questions were answered and informed consent was obtained. - Patient identification and proposed procedure were verified prior to the procedure by the physician and the nurse. The procedure was verified in the pre-procedure area in the procedure room. After obtaining informed consent, the endoscope was passed carefully and meticuously under direct vision and only advanced when the lumen was clearly identified, C02 insuflation was utilized throughout the entirity of the procedure. Throughout the procedure, the patient's blood pressure, pulse, and oxygen saturations were monitored continuously. After obtaining informed consent, the endoscope was passed under direct vision. Throughout the procedure, the patient's blood pressure, pulse, and oxygen saturations were monitored continuously. The Endoscope was introduced through the mouth, and advanced to the second part of duodenum. The upper GI endoscopy was accomplished without difficulty. The patient tolerated the procedure well. Findings: The examined esophagus was normal. An endoclip was found in the gastric body. No other significant abnormalities were identified in a careful examination of the stomach. Biopsies were taken with a cold forceps in the stomach for histology. A foreign body was found at the major papilla. Plastic biliary stent in good position. Impression: - Normal esophagus. - An endoclip was found in the stomach. - Duodenal foreign body. - Biopsies were taken with a cold forceps for histology in the stomach. Recommendation: - Discharge patient to home (with escort). - Await pathology results. - Return to referring physician as previously scheduled. - Can schedule antiemetics, continued care per general surgery as likely related to post operative fluid collection. Antibiotics as per General Surgery Antonio Sexton MD 12/18/2021 12:54:12 PM This report has been signed electronically. Note Initiated On: 12/18/2021 12:32 PM Number of Addenda: 0 I attest to the content of the Intraoperative Record and orders documented therein, exceptions below {[id number]}
--- NOTE | 2021-12-18 15:17 | Anesthesiology Progress Note ---
Date of Service December 18, 2021 Anesthesia Post Procedure Vital Signs Vital Signs: Temp Pulse Pulse Resp BP BP BP 12/18/21 14:54 36.5 C 61 20 122/81 12/18/21 13:28 62 16 125/69 12/18/21 12:59 64 16 114/90 12/18/21 12:44 62 16 169/112 H 12/18/21 12:15 36.6 C 74 18 131/75 12/18/21 09:05 64 16 118/71 12/18/21 07:00 61 16 115/76 12/18/21 06:01 73 113/75 12/18/21 03:30 59 L 12 108/51 L 12/18/21 00:55 63 16 12/17/21 22:00 71 20 12/17/21 20:58 73 20 139/87 12/17/21 20:16 69 16 126/55 L 12/17/21 19:00 67 32 H 12/17/21 19:00 123/74 12/17/21 18:50 73 25 H 12/17/21 18:40 70 20 12/17/21 18:39 133/80 12/17/21 18:39 71 19 12/17/21 18:30 78 19 12/17/21 18:21 77 19 Pulse Ox O2 Del Method 12/18/21 14:54 98 Room Air 12/18/21 13:28 94 Room Air 12/18/21 12:59 96 Room Air 12/18/21 12:44 95 Room Air 12/18/21 12:15 95 Room Air 12/18/21 09:05 94 Room Air 12/18/21 07:00 94 Room Air 12/18/21 06:01 12/18/21 03:30 96 Room Air 12/18/21 00:55 97 Room Air 12/17/21 22:00 95 Room Air 12/17/21 20:58 95 Room Air 12/17/21 20:16 97 Room Air 12/17/21 19:00 94 12/17/21 19:00 12/17/21 18:50 95 12/17/21 18:40 96 12/17/21 18:39 12/17/21 18:39 96 12/17/21 18:30 97 12/17/21 18:21 96 Pain Intensity Abdomen: Pain Intensity: 2 Transfer of Care Handoff Completed per policy Notes Mental Status: alert / awake / arousable and participated in evaluation Patient Amnestic to Procedure: Yes Nausea / Vomiting: adequately controlled Pain: adequately controlled Airway Patency, RR, SpO2: stable & adequate BP & HR: stable & adequate Hydration State: stable & adequate Anesthetic Complications: no major complications apparent
[2021-12-18] MEDS: MELOXICAM 7.5 MG TAB PO SCH (16:48)
[2021-12-18 19:35] LABS: Adenovirus F 40/41 PCR Not Detected (NotDetected); Astrovirus PCR Not Detected (NotDetected); Campylobacter PCR Not Detected (NotDetected); Cryptosporidium PCR Not Detected (NotDetected); Cyclospora cayetanensis PCR Not Detected (NotDetected); Entamoeba histolytica PCR Not Detected (NotDetected); Enteroaggregative E.coli(EAEC) Not Detected (NotDetected); Enteropathogenic E.coli (EPEC) Not Detected (NotDetected); Enterotoxigenic E.coli (ETEC) Not Detected (NotDetected); Giardia lamblia PCR Not Detected (NotDetected); Norovirus GI/GII PCR Not Detected (NotDetected); Plesiomonas shigelloides PCR Not Detected (NotDetected); Rotavirus A PCR Not Detected (NotDetected); Salmonella PCR Not Detected (NotDetected); Sapovirus PCR Not Detected (NotDetected); Shiga-like Toxin E.coli (STEC) Not Detected (NotDetected); Shigella/Enteroinvasive E.coli Not Detected (NotDetected); Vibrio cholerae PCR Not Detected (NotDetected); Vibrio species PCR Not Detected (NotDetected); Yersinia enterocolitica PCR Not Detected (NotDetected)
[2021-12-19] MEDS: [UNRECOGNIZED DRUG - REMARK] SCH ×3 (00:46→16:33)
[2021-12-19] MEDS: PIPERACILLIN/TAZOBACTAM 4.5 GM in DEXTROSE 5% 100 ML IV SCH ×3 (00:59→16:33)
[2021-12-19] MEDS: METOCLOPRAMIDE HCL 10 MG TABLET PO SCH ×3 (07:50→17:13)
--- NOTE | 2021-12-19 08:04 | Surgery Progress Note ---
Date of Service December 19, 2021 Assessment & Plan (1) Abdominal pain: Plan: pt is a 51 year-old female who presents to Er with RUQ pain and diarrhea, S/P lap clarke, and ERCP, POD, near 5 weeks, and drainage abdominal abscess 4 weeks ago, gail drainage was remove 2 weeks ago, IMP: abdominal pain, fluid collect at gallbladder fossa, no change, no indication for drainage now, conservative treatment, po antibiotic, check C-diff, GI consult for possible EGD to R/O Ulcer PT + OP , off bed twice a day, repeat labs in morning will F/U, 12/19/2021 8:00AM fluid collect at gallbladder fossa,no indication for drainage now, conservative treatment, po antibiotic for 3 more days pt may D/C home tomorrow, sign off today, F/U me 1 week at my clinic, , please call with questions, Thanks, Admission and Anticipated Discharge Date Admission Date: December 18, 2021 Supervising Physician Co-Signing Physician Notes Attending attestation I have seen, examined this patient, and agree with the findings and above by our mid-level provider PRINCE Dey, with the following additions: EGD today Subjective cholecystectomy on 11/12/2021 for acute cholecystitis followed by subsequent ERCP with bile duct stent placement on 11/13/2021. She was discharged on 11/14/2021 and returned on 11/18/2021 with a complication of abdominal abscess. She was admitted by the surgical team and IR drainage of abscess was recommended. She was discharged to [facility] for interventional radiology procedure on 11/20/21. After finishing an antibiotic course she represented on 12/07/2021 with abdominal pain nausea and vomiting. CT scan of the abdomen pelvis revealed fluid collection that was decreased in size after abdominal abscess was drained. IV Zosyn was started and she was reevaluated by both general surgery and GI. A stent exchange was performed on 12/09/2021. She was again continued on IV antibiotics. She had a urine culture that was growing E. coli ESBL and was switched to a course of ertapenem. She w as discharged on 12/15/2021 and unfortunately developed abdominal pain, nausea and vomiting as well as expression of pus like substance out of one of her laparoscopic wounds. She was readmitted yesterday and appears nontoxic. She is now able to tolerate clear liquids and is requesting regular food. She remains on Zosyn pending ID consultation given multiple rounds of IV antibiotics recently and persistent 3 cm fluid collection within the gallbladder fossa. She reports persistent but improved abdominal pain with similar quality as she has had over the last couple of months. 12/19/2021 7:58AM, DR. Kendrick F/U post-op abdominal fluid collection, pt is doing much better, no significant abdominal pain, no nausea, no vomiting, tolerated diet, no fever, Physical Exam Eyes: PERRL, conjunctivae normal, anicteric sclerae Neck: trachea midline, no thyromegaly Respiratory: normal respiratory effort, lungs clear to auscultation Cardiovascular: RRR, no murmur, no edema Gastrointestinal (Abdomen): soft, Nt, Nd, BS +, Musculoskeletal: no cyanosis or clubbing, extremities motor strength 5/5 Neurologic: patellar DTR's 2+ bilat, sensation intact Psychiatric: A+Ox3, euthymic affect Results & Data ([facility]) Vital Signs (Past 12 Hours) Vital Signs Temp Pulse Resp BP Pulse Ox O2 Del Method 12/18/21 22:17 36.5 C 56 L 16 104/66 94 Room Air 12/18/21 20:17 36.5 C 62 18 121/79 95 Room Air
[2021-12-19] MEDS: busPIRone 15 MG TAB PO SCH (08:23)
[2021-12-19] MEDS: PANTOprazole 40 MG TAB PO SCH (08:23)
[2021-12-19] MEDS: ENOXAPARIN INJ 40 MG/0.4 ML SYR SQ SCH (08:23)
[2021-12-19] MEDS: ROSUVASTATIN CALCIUM 10 MG TAB PO SCH (08:24)
[2021-12-19] MEDS: FERROUS SULFATE 325 MG TAB PO SCH (08:24)
[2021-12-19] MEDS: OXYBUTYNIN CHLORIDE XL 5 MG TABCR PO SCH (08:25)
[2021-12-19] MEDS: FLUoxetine HCL 20 MG CAP PO SCH (08:25)
[2021-12-19 08:45] LABS: Hematocrit (blood only) 36.4 % (34.1-44.9); Hemoglobin 11.7 g/dl (12.0-16.0); Mean Corpuscular Hemoglobin 25.9 pg (25.0-34.0); Mean Corpuscular Hgb Conc 32.1 g/dL (32.0-36.0); Mean Corpuscular Volume 80.7 fL (80.0-100.0); Mean Platelet Volume 12.2 fL (9.4-12.3); Platelet Count 240 K/uL (130-400); RDW Coefficient of Variation 15.8 % (11.5-14.5); RDW Standard Deviation 45.5 fL (36.4-46.3); Red Blood Count 4.51 M/uL (3.93-5.22); White Blood Count 8.81 K/ul (4.8-10.8)
[2021-12-19 10:11] LABS: Albumin Globulin Ratio 1.1 (0.9-2); Albumin Level 3.7 gm/dl (3.4-5.0); BUN Creatinine Ratio 11.8 (10-20); Bilirubin,Total 0.7 mg/dl (0.2-1.0); Creatinine Clr Calc Pharmacy 128.8 ml/min; Est GFR (Non-African American) 91.5 ml/min; Globulin 3.3 gm/dl (2.5-4.0); Magnesium 1.6 mg/dl (1.7-2.4); Potassium 3.7 mmol/L (3.5-5.1)
[2021-12-19] MEDS ORDERED: ALBUTEROL HFA 8 GM INHALER INH PRN (12:23)
--- NOTE | 2021-12-19 14:31 | Hospitalist Progress Note ---
Date of Service December 19, 2021 Assessment & Plan (1) History of biliary duct stent placement: (2) Abdominal pain: (3) Nausea: Plan: She again returns with abdominal pain nausea vomiting and new expression of pus like substance from her wound. A CT of the abdomen and pelvis was repeated again revealing unchanged small complex recent major fluid accumulation in the gallbladder fossa with mild pneumobilia and unchanged positioning of the common bile duct stent recently placed as noted above. Tolerating advanced diet today without issues Continues to have loose stool in setting of recent antibiotics-stool culture negative with repeat C. difficile pending (negative C. difficile 12/10) Surgery is not recommending IR drainage at this time and she continues on IV Zosyn. Dr. Kendrick recommends clinic follow-up in clinic in 1 week Underwent EGD yesterday with stomach biopsy pending Infectious disease consulted regarding need for ongoing antibiotics given multiple rounds of antibiotics recently (4) Diabetes mellitus, type 2: Plan: Very well controlled on outpatient GLP-1 agonist. She has not needed any insulin coverage in the last 24 hours with well-controlled sugars. We will stop blood sugar checks at this time, no need for diabetic diet or insulin coverage. Would allow patient to continue with her weekly injections if she has a prolonged stay. She will need to bring this from home as this is nonformulary (5) Hypertension: Plan: Stable. Continue current medical therapy (6) Morbid obesity: Plan: BMI 40.9. Llifestyle changes recommended (7) Anxiety and depression: Plan: Chronic, stable. Continue Prozac 60 mg daily, lorazepam 0.5 mg at HS prn, BuSpar 30 mg QAM (8) DVT prophylaxis: Plan: Lovenox Full Dispo: From home, likely to remain in the hospital x 1-2 days for observation, await ID recommendations Admission and Anticipated Discharge Date Admission Date: December 18, 2021 Supervising Physician Co-Signing Physician Notes delayed entry date of service noted above Attending Addendum: care coordinated with JO Buitrago please refer to her notes for full details, I agree with her notes patient seen and examined, records reviewed by myself as well Zain Curtis MD Subjective Patient tolerating diet and able to ambulate some but abdominal discomfort with movement. Nausea aided by antiemetics. Had long discussion with at bedside about plans moving forward due to multiple admissions postoperatively. No fever, chills, lightheadedness, headache, chest pain, shortness of breath,vomiting, dysuria. 3 episodes of loose stool today. Pertinent patient history: cholecystectomy on 11/12/2021 for acute cholecystitis followed by subsequent ERCP with bile duct stent placement on 11/13/2021. She was discharged on 11/14/2021 and returned on 11/18/2021 with a complication of abdominal abscess. She was admitted by the surgical team and IR drainage of abscess was recommended. She was discharged to [facility] for interventional radiology procedure on 11/20/21. After finishing an antibiotic course she represented on 12/07/2021 with abdominal pain nausea and vomiting. CT scan of the abdomen pelvis revealed fluid collection that was decreased in size after abdominal abscess was drained. IV Zosyn was started and she was reevaluated by both general surgery and GI. A stent exchange was performed on 12/09/2021. She was again continued on IV antibiotics. She had a urine culture that was growing E. coli ESBL and was switched to a course of ertapenem. She was discharged on 12/15/2021 and unfortunately developed abdominal pain, nausea and vomiting as well as expression of pus like substance out of one of her laparoscopic wounds. She was readmitted yesterday and appears nontoxic. She is now able to tolerate clear liquids and is requesting regular food. She remains on Zosyn pending ID consultation given multiple rounds of IV antibiotics rec ently and persistent 3 cm fluid collection within the gallbladder fossa. She reports persistent but improved abdominal pain with similar quality as she has had over the last couple of months. Review of Systems Review of Systems: At least ten systems reviewed and negative except as noted in the HPI. Physical Exam Physical Exam: Gen: WD/WN, NAD, sitting in bed, A&Ox3 HEENT: Normocephalic, atraumatic, conjunctivae moist, sclerae anicteric, mucous membranes moist Lung: Clear to Auscultation bilaterally, no wheezes/rales/rhonchi Heart: Regular rate, regular rhythm, no murmurs, rubs, or gallops Abdomen: Soft, NT, ND +BS x 4, healing laparoscopic incisions Extremities: no edema Skin: Warm, no rash Results & Data Results & Data ([facility]) Vital Signs (Past 12 Hours) Vital Signs Temp Pulse Resp BP Pulse Ox O2 Del Method 12/19/21 11:14 36.9 C 73 18 114/74 96 Room Air 12/19/21 07:39 Room Air Laboratory Results Short CBC 12/19/21 Range/Units 07:39 WBC 8.81 (4.8-10.8) K/ul Hgb 11.7 L (12.0-16.0) g/dl Hct 36.4 (34.1-44.9) % Plt Count 240 (130-400) K/uL BMP 12/19/21 12/19/21 07:39 09:26 Sodium Cancelled 138 Potassium Cancelled 3.7 Chloride Cancelled 105 Carbon Dioxide Cancelled 24 BUN Cancelled 9 Creatinine Cancelled 0.76 Glucose Cancelled 157 H Calcium Cancelled 9.0 Liver Function 12/19/21 12/19/21 Range/Units 07:39 09:26 Total Bilirubin Cancelled 0.7 AST Cancelled 11 L ALT Cancelled 14 Alkaline Phosphatase Cancelled 60 Albumin Cancelled 3.7 Diagnostic Findings Abdomen/Pelvis CT 12/17/21 18:[address] WITH IV CONTRAST CT DOSE: 1782.32 mGy.cm HISTORY: Acute generalized abdominal pain abd pain TECHNIQUE: Multiaxial CT images of the abdomen and pelvis were performed following the IV administration of 88 cc of Optiray, A dose lowering technique was utilized adhering to the principles of ALARA. COMPARISON STUDY: CT abdomen and pelvis 12/11/2021, 12/07/2021 FINDINGS: Clear lung bases. No pneumatosis or pneumoperitoneum. Unremarkable spleen. Unchanged punctate calcification of the pancreatic body with otherwise unremarkable appearance of the pancreas. Small bilateral adrenal gland adenomata redemonstrated measuring up to 1.8 cm. Cholecystectomy with complex fluid again noted within the gallbladder fossa measuring up to approximately 2.8 x 2.3 cm, stable from prior. A common bile duct stent appears to be in satisfactory positioning. Intrahepatic pneumobilia confirms stent patency. No choledocholithiasis or significant biliary ductal dilation is identified. The liver is enlarged measuring up to 24 cm in length. Patent portal vein. Unremarkable kidneys without hydronephrosis. There is partial distention of the urinary bladder. Hysterectomy. Aorta and IVC are unremarkable. No lymphadenopathy identified. No bowel obstruction or bowel wall thickening. Mild wall thickening of the distal stomach adjacent to the postoperative fluid collection is unchanged. Mild colonic diverticulosis. The distal appendix measures up to 8 mm in transverse dimension and appears to be noninflamed. Unremarkable soft tissues. Degenerative changes of the spine, pelvis and hips. IMPRESSION: 1. Stable exam from the 12/11/2021 study. 2. Status post cholecystectomy with unchanged small complex fluid collection within the gallbladder fossa measuring less than 3 cm. 3. Unchanged positioning of the common bile duct stent with mild pneumobilia. 4. Mild wall thickening of the distal stomach/proximal duodenum is redemonstrated, likely reactive. 5. Mild hepatomegaly. ACT 112: Negative or not required by law. The above report was generated using voice recognition software. It may contain grammatical, syntax or spelling errors. Electronically signed by: Koby Cantrell M.D. 12/17/2021 7:55 PM
[2021-12-19] MEDS: MELOXICAM 7.5 MG TAB PO SCH (17:12)
[2021-12-19] MEDS: cloNIDine HCL 0.1 MG TAB PO SCH (20:32)
[2021-12-19 20:58] LABS: Cdiff Antigen Positive; Cdiff Toxin A+B Negative Cdiff Toxin (Negative)
[2021-12-20] MEDS: PIPERACILLIN/TAZOBACTAM 4.5 GM in DEXTROSE 5% 100 ML IV SCH ×3 (00:40→16:14)
[2021-12-20] MEDS: [UNRECOGNIZED DRUG - REMARK] SCH ×3 (00:40→16:14)
[2021-12-20] MEDS: METOCLOPRAMIDE HCL 10 MG TABLET PO SCH ×3 (08:06→16:15)
[2021-12-20] MEDS: busPIRone 15 MG TAB PO SCH (08:37)
[2021-12-20] MEDS: ENOXAPARIN INJ 40 MG/0.4 ML SYR SQ SCH (08:40)
[2021-12-20] MEDS: FERROUS SULFATE 325 MG TAB PO SCH (08:41)
[2021-12-20] MEDS ORDERED: MELOXICAM 7.5 MG TAB PO PRN (08:41)
[2021-12-20] MEDS: OXYBUTYNIN CHLORIDE XL 5 MG TABCR PO SCH (08:41)
[2021-12-20] MEDS: FLUoxetine HCL 20 MG CAP PO SCH (08:41)
[2021-12-20] MEDS: ROSUVASTATIN CALCIUM 10 MG TAB PO SCH (08:42)
[2021-12-20] MEDS: PANTOprazole 40 MG TAB PO SCH (08:42)
[2021-12-20 08:54] LABS: Hematocrit (blood only) 37.9 % (34.1-44.9); Hemoglobin 12.1 g/dl (12.0-16.0); Mean Corpuscular Hemoglobin 25.8 pg (25.0-34.0); Mean Corpuscular Hgb Conc 31.9 g/dL (32.0-36.0); Mean Corpuscular Volume 80.8 fL (80.0-100.0); Mean Platelet Volume 11.7 fL (9.4-12.3); Platelet Count 334 K/uL (130-400); RDW Coefficient of Variation 15.8 % (11.5-14.5); RDW Standard Deviation 45.9 fL (36.4-46.3); Red Blood Count 4.69 M/uL (3.93-5.22); White Blood Count 8.85 K/ul (4.8-10.8)
[2021-12-20 09:38] LABS: BUN Creatinine Ratio 14.9 (10-20); Creatinine Clr Calc Pharmacy 146.1 ml/min; Est GFR (African American) 118.8 ml/min; Est GFR (Non-African American) 102.5 ml/min; Potassium 3.9 mmol/L (3.5-5.1)
[2021-12-20] MEDS: ADVANCED PROBIOTIC 1250 MG CAPSULE PO SCH (10:04)
--- NOTE | 2021-12-20 14:42 | Hospitalist Progress Note ---
Date of Service December 20, 2021 Assessment & Plan (1) History of biliary duct stent placement: (2) Abdominal pain: (3) Nausea: Plan: Likely secondary to infected gallbladder fossa fluid collection History of cholecystectomy Intra-abdominal abscess Biliary stent placement --Status post EGD: Unrevealing --Afebrile, abdominal pain improving --Urine culture negative --Continue IV Zosyn, ID consult pending-urinary environmental research scientist requested to follow-up --Discussed with Dr. Duenas, defer to [facility] service--> recommend antibiotic coverage , then repeat CAT scan, if without improvement, possible drainage --Diarrhea resolved (4) Diabetes mellitus, type 2: Plan: A.m. blood glucose 97 On weekly Mounjaro (5) Hypertension: Plan: Stable. Continue current medical therapy (6) Morbid obesity: Plan: BMI 40.9. Llifestyle changes recommended (7) Anxiety and depression: Plan: Chronic, stable. Continue Prozac 60 mg daily, lorazepam 0.5 mg at HS prn, BuSpar 30 mg QAM (8) DVT prophylaxis: Plan: Lovenox Full Dispo: Anticipate discharge to home when medically stable Admission and Anticipated Discharge Date Admission Date: December 18, 2021 Subjective Follow-up for gallbladder fossa fluid collection, etc. Seen resting in bed, comfortable, not in distress Sitting up In good spirits States she continues to feel improved Very minimal abdominal pain today Tolerating diet well today Positive bowel movement-no melena hematochezia No fevers or chills no chest pain, dyspnea, palpitations, dizziness No other symptoms Ambulating without any problems today Review of Systems Review of Systems: all noted and negative except for above Physical Exam Physical Exam: General- oriented x 3, not in distress, speaks in sentences with no effort or accessory muscle use Eyes- anicteric Neck- no JVD Lungs- clear breath sounds bilaterally, no rales/wheezes Heart- normal rate, regular rhythm; no murmurs Abdomen- normal bowel sounds, nondistended, soft, minimal right upper quadrant tenderness Extremities- no pretibial edema, no calf tenderness Neuro- alert, oriented x 3; no gross focal neurologic deficits Skin- warm & dry Results & Data Results & Data ([facility]) Vital Signs (Past 12 Hours) Vital Signs Temp Pulse Resp BP Pulse Ox O2 Del Method 12/20/21 07:26 36.9 C 70 18 127/68 97 Room Air all noted and reviewed including below
[2021-12-20] MEDS ORDERED: NON-FORMULARY MEDICATION (Tirzepatide [Mounjaro] 7.5 mg/0.5 mL Pen Injector) SQ SCH (15:00)
[2021-12-20] MEDS: LOSARTAN/HCTZ 50/12.5MG TAB PO SCH (16:14)
[2021-12-20] MEDS: MELOXICAM 7.5 MG TAB PO SCH (16:15)
[2021-12-20] MEDS: cloNIDine HCL 0.1 MG TAB PO SCH (20:04)
[2021-12-21] MEDS: [UNRECOGNIZED DRUG - REMARK] SCH ×4 (00:44→20:19)
[2021-12-21] MEDS: PIPERACILLIN/TAZOBACTAM 4.5 GM in DEXTROSE 5% 100 ML IV SCH ×3 (00:55→16:03)
[2021-12-21] MEDS: ROSUVASTATIN CALCIUM 10 MG TAB PO SCH (07:25)
[2021-12-21] MEDS: LOSARTAN/HCTZ 50/12.5MG TAB PO SCH (07:25)
[2021-12-21] MEDS: METOCLOPRAMIDE HCL 10 MG TABLET PO SCH ×3 (07:26→16:03)
[2021-12-21] MEDS: FLUoxetine HCL 20 MG CAP PO SCH (07:26)
[2021-12-21] MEDS: ADVANCED PROBIOTIC 1250 MG CAPSULE PO SCH (07:27)
[2021-12-21] MEDS: busPIRone 15 MG TAB PO SCH (07:27)
[2021-12-21] MEDS: OXYBUTYNIN CHLORIDE XL 5 MG TABCR PO SCH (07:28)
[2021-12-21] MEDS: FERROUS SULFATE 325 MG TAB PO SCH (07:28)
[2021-12-21] MEDS: PANTOprazole 40 MG TAB PO SCH (07:29)
[2021-12-21] MEDS: ENOXAPARIN INJ 40 MG/0.4 ML SYR SQ SCH (07:29)
[2021-12-21 08:09] LABS: Creatinine Clr Calc Pharmacy 137.8 ml/min; Est GFR (African American) 115.1 ml/min; Est GFR (Non-African American) 99.3 ml/min
[2021-12-21] MEDS ORDERED: NON-FORMULARY PATIENT'S OWN MED ONE (09:00)
[2021-12-21] MEDS ORDERED: TIRZEPATIDE SC SCH (09:00)
--- NOTE | 2021-12-21 12:41 | Hospitalist Progress Note ---
Date of Service December 21, 2021 Assessment & Plan (1) History of biliary duct stent placement: (2) Abdominal pain: (3) Nausea: Plan: Likely secondary to infected gallbladder fossa fluid collection History of cholecystectomy Intra-abdominal abscess Biliary stent placement --Status post EGD: Unrevealing --Afebrile, abdominal pain continues to improve --Urine culture negative --Continue IV Zosyn day #3, ID consult pending-urinary ward secretary requested to follow-up --Discussed with Dr. Duenas, defer to [facility] service--> recommend antibiotic coverage , then repeat CAT scan, if without improvement, possible drainage --Diarrhea resolved Awaiting ID consult Patient clinically improving with IV Zosyn Monitor closely (4) Diabetes mellitus, type 2: Plan: A.m. blood glucose 97 On weekly Mounjaro (5) Hypertension: Plan: Stable Continue current medical therapy (6) Morbid obesity: Plan: BMI 40.9. Llifestyle changes recommended (7) Anxiety and depression: Plan: Chronic, stable. Continue Prozac 60 mg daily, lorazepam 0.5 mg at HS prn, BuSpar 30 mg QAM (8) DVT prophylaxis: Plan: Lovenox Full Dispo: Anticipate discharge to home when medically stable Admission and Anticipated Discharge Date Admission Date: December 18, 2021 Subjective Follow-up for gallbladder fluid collection, etc. Seen resting in bed, sleeping but easily awakened Comfortable, not in distress States she continues to feels better Abdominal pain has resolved today Had belching after breakfast but no abdominal discomfort Positive good bowel movements No nausea or vomiting, no fever chills No other symptoms Review of Systems Review of Systems: all noted and negative except for above Physical Exam Physical Exam: General- oriented x 3, not in distress, speaks in sentences with no effort or accessory muscle use Eyes- anicteric Neck- no JVD Lungs- clear breath sounds bilaterally, no crackles or wheezing Heart- normal rate, regular rhythm; no murmurs Abdomen- normal bowel sounds, nondistended, soft Lap clarke site wounds healing well No right upper quadrant tenderness No abdominal tenderness Extremities- no pretibial edema, no calf tenderness Neuro- alert, oriented x 3; no gross focal neurologic deficits Skin- warm & dry Results & Data Results & Data ([facility]) Vital Signs (Past 12 Hours) Vital Signs Temp Pulse Resp BP Pulse Ox O2 Del Method 12/21/21 08:18 36.6 C 67 18 107/71 96 Room Air all noted and reviewed including below
[2021-12-21] MEDS: MELOXICAM 7.5 MG TAB PO SCH (16:02)
[2021-12-21] MEDS: cloNIDine HCL 0.1 MG TAB PO SCH (20:15)
[2021-12-22] MEDS: PIPERACILLIN/TAZOBACTAM 4.5 GM in DEXTROSE 5% 100 ML IV SCH ×2 (00:41→07:25)
[2021-12-22] MEDS: PROMETHAZINE HCL 12.5 MG in SODIUM CHLORIDE 0.9% 50 ML IV PRN ×2 (02:30→18:58)
[2021-12-22] MEDS: [UNRECOGNIZED DRUG - REMARK] SCH (07:16)
[2021-12-22] MEDS: METOCLOPRAMIDE HCL 10 MG TABLET PO SCH ×3 (07:16→17:13)
[2021-12-22] MEDS: FLUoxetine HCL 20 MG CAP PO SCH (07:19)
[2021-12-22] MEDS: OXYBUTYNIN CHLORIDE XL 5 MG TABCR PO SCH (07:19)
[2021-12-22] MEDS: ROSUVASTATIN CALCIUM 10 MG TAB PO SCH (07:19)
[2021-12-22] MEDS: PANTOprazole 40 MG TAB PO SCH (07:20)
[2021-12-22] MEDS: FERROUS SULFATE 325 MG TAB PO SCH (07:20)
[2021-12-22] MEDS: ADVANCED PROBIOTIC 1250 MG CAPSULE PO SCH (07:20)
[2021-12-22] MEDS: busPIRone 15 MG TAB PO SCH (07:20)
[2021-12-22] MEDS: LOSARTAN/HCTZ 50/12.5MG TAB PO SCH (07:20)
[2021-12-22] MEDS: ENOXAPARIN INJ 40 MG/0.4 ML SYR SQ SCH (07:21)
--- NOTE | 2021-12-22 15:17 | Hospitalist Progress Note ---
Date of Service December 22, 2021 Assessment & Plan (1) History of biliary duct stent placement: (2) Abdominal pain: (3) Nausea: Plan: Likely secondary to infected gallbladder fossa fluid collection History of cholecystectomy Intra-abdominal abscess Biliary stent placement --Status post EGD: Unrevealing --Afebrile, abdominal pain continues to improve --Urine culture negative -- Given IV Zosyn day #3, patient's symptoms significantly better --Discussed with general surgeon Dr. Duenas, defer to [facility] service--> recommend antibiotic coverage , then repeat CAT scan, if without improvement, possible drainage --Diarrhea resolved Tae ID consulted-recommends 2 weeks of IV ertapenem CBC, CMP weekly while on IV antibiotics Repeat CAT scan of the abdomen pelvis after completion of IV antibiotics --PICC line placed, home health services arranged Probiotics x1 month (4) Diabetes mellitus, type 2: Plan: A.m. blood glucose 97 On weekly Mounjaro (5) Hypertension: Plan: Stable Continue current medical therapy (6) Morbid obesity: Plan: BMI 40.9. Llifestyle changes recommended (7) Anxiety and depression: Plan: Chronic, stable. Continue Prozac 60 mg daily, lorazepam 0.5 mg at HS prn, BuSpar 30 mg QAM (8) DVT prophylaxis: Plan: Lovenox Full Dispo: Discharge to home with home health services, with PICC line for IV ertapenem 1 g daily x2 weeks Admission and Anticipated Discharge Date Admission Date: December 18, 2021 Subjective Follow-up for gallbladder fossa fluid collection, possible abscess, etc. Seen sitting up in bed, comfortable, in good spirits States she feels much better overall Right upper quadrant pain currently mostly resolved Tolerating diet well Ambulate with no problems No fevers or chills no chest pain, dyspnea, palpitations, dizziness No other symptoms States she would like to be discharged today if possible after PICC line placement and IV ertapenem dose Review of Systems Review of Systems: all noted and negative except for above Physical Exam Physical Exam: General- oriented x 3, not in distress, speaks in sentences with no effort or accessory muscle use Eyes- anicteric Neck- no JVD Lungs- clear breath sounds bilaterally, no rales/wheezes Heart- normal rate, regular rhythm; no murmurs Abdomen- normal bowel sounds, nondistended, soft, Right upper quadrant tenderness 2 out of 10 Extremities- no pretibial edema, no calf tenderness Neuro- alert, oriented x 3; no gross focal neurologic deficits Skin- warm & dry Results & Data Results & Data ([facility]) Vital Signs (Past 12 Hours) Vital Signs Temp Pulse Pulse Resp BP Pulse Ox O2 Del Method 12/22/21 07:46 36.6 C 62 19 120/78 95 Room Air 12/22/21 07:07 36.7 C 61 16 102/63 95 Room Air all noted and reviewed including below
--- NOTE | 2021-12-22 15:30 | Discharge Summary ---
Discharge Summary Date of Service December 22, 2021 Notes For Next Care Provider Repeat CBC, CMP weekly while on IV ertapenem x2 weeks. Repeat CT abdomen and pelvis after completion of IV ertapenem in 2 weeks. Medication Changes From Visit New: Ertapenem 1 g IV x2 weeks Admission HPI Per Admitting Provider This is a 51-year-old female with PMHx of obstructive sleep apnea, major depressive disorder, hypertension, diabetes type 2, moderate persistent asthma and recent laparoscopic cholecystectomy, intra-abdominal abscess status post drainage and also biliary stent placement on 11/13/2021 has been complaining of abdominal pain with nausea. Recent hospitalizations as follows: 12/07-12/15 treated for postoperative intra-abdominal abscess where she underwent ERCP with stent exchange, extraction of CBD stones by Dr. Roman on 12/09. She was also treated for E. coli ESBL urinary tract infection treated with ertapenem, completed antibiotic course while hospitalized. She was seen today by her PCP in follow-up from recent hospital discharge. She reported that her abdominal pain started to return after going home on Wednesday from the hospital. She went out to eat Wednesday evening and ordered a cup of onion soup, however due to nausea was not able to eat it. Her incision from previous lap cholecystectomy started to ooze pus last night. It is clear/red/yellow in color. Pt c/o being tender to the touch. Denies fevers, sweats or chills. She does feels some lightheadedness and dizziness but has been unable to tolerate p.o. intake much due to nausea. She has been taking Reglan as directed. In regards to urinary tract infection, she denies any dysuria, burning, increased frequency and states that she has never had symptoms with UTI. Only complaint she has with urination is that she seems to have some difficulty starting to urinate, but does pee and feels that her bladder is completely empty when she finishes. She also has had diarrhea over the past 2 days, 3 times so far today. Outpatient communication with GI was held prior to the patient coming to the ER upon epic chart review and there was concern for possible rebuilding/accumulation of fluid intra-abdominally. Pt is agreeable to staying overnight in the hospital. Admission Exam Per Admitting Provider General: awake, alert, no apparent distress, + obese with BMI of 40.6 Head: Normocephalic, atraumatic ENT: PERRL, EOMI, no pharyngeal exudate, mucous membranes moist Chest: Clear to auscultation, on room air, no adventitious breath sounds Cardiac: Regular rate and rhythm, no murmur, no JVD, normal peripheral pulses, good capillary refill Abdominal: NABS x 4 quadrants, soft, nondistended, + healing incision sites from previous cholecystectomy, scabbing over lesions, no pus, no surrounding erythema, patient jumps with minimal palpation to the abdomen, no rebound or guarding Extremities: Normal inspection, no peripheral edema or erythema, calfs nontender to palpation Psych: Normal mood and affect Neuro: AAO x 3, strength intact bilaterally and rated 5/5, no motor deficits, speech is clear, no peripheral sensory deficits Principal Dx & Hospital Course #1 = Principal Diagnosis (1) History of biliary duct stent placement: (2) Abdominal pain: (3) Nausea: Likely secondary to infected gallbladder fossa fluid collection History of cholecystectomy Intra-abdominal abscess Biliary stent placement --Status post EGD: Unrevealing --Afebrile, abdominal pain continues to improve --Urine culture negative -- Given IV Zosyn day #3, patient's symptoms significantly better --Discussed with general surgeon Dr. Duenas, defer to [facility] service--> recommend antibiotic coverage , then repeat CAT scan, if without improvement, possible drainage --Diarrhea resolved Tae ID consulted-recommends 2 weeks of IV ertapenem CBC, CMP weekly while on IV antibiotics Repeat CAT scan of the abdomen pelvis after completion of IV antibiotics --PICC line placed, home health services arranged Probiotics x1 month (4) Diabetes mellitus, type 2: A.m. blood glucose 97 On weekly Mounjaro (5) Hypertension: Stable Continue current medical therapy (6) Morbid obesity: BMI 40.9. Llifestyle changes recommended (7) Anxiety and depression: Chronic, stable. Continue Prozac 60 mg daily, lorazepam 0.5 mg at HS prn, BuSpar 30 mg QAM (8) DVT prophylaxis: Lovenox Full Dispo: Discharge to home with home health services, with PICC line for IV ertapenem 1 g daily x2 weeks Discharge Exam General- oriented x 3, not in distress, speaks in sentences with no effort or accessory muscle use Eyes- anicteric Neck- no JVD Lungs- clear breath sounds bilaterally, no rales/wheezes Heart- normal rate, regular rhythm; no murmurs Abdomen- normal bowel sounds, nondistended, soft, Right upper quadrant tenderness 2 out of 10 Extremities- no pretibial edema, no calf tenderness Neuro- alert, oriented x 3; no gross focal neurologic deficits Skin- warm & dry Updated Medication List Medication Instructions Recorded Confirmed Type albuterol sulfate 90 mcg/actuation 2 puff inhalation Q4 PRN Shortness 03/19/19 12/17/21 History aerosol inhaler Of Breath Or cough buspirone 30 mg tablet 30 mg PO QAM 11/11/21 12/17/21 History clonidine HCl 0.1 mg tablet 0.1 mg PO HS 11/11/21 12/17/21 History ergocalciferol (vitamin D2) 1,250 1,250 mcg PO WK 11/11/21 12/17/21 History mcg (50,000 unit) capsule ferrous sulfate 325 mg (65 mg 325 mg PO QAM 11/11/21 12/17/21 History iron) tablet (iron) fluoxetine 20 mg capsule 20 mg PO QAM 11/11/21 12/17/21 History fluoxetine 40 mg capsule 40 mg PO QAM 11/11/21 12/17/21 History lorazepam 0.5 mg tablet 0.5 mg PO HS PRN Sleep 11/11/21 12/17/21 History losartan 50 mg-hydrochlorothiazide 1 tab PO QAM 11/11/21 12/17/21 History 12.5 mg tablet olopatadine 0.1 % eye drops 1 drp ophthalmic (eye) BID 11/11/21 12/17/21 History omeprazole 20 mg capsule,delayed 20 mg PO QAM 11/11/21 12/17/21 History release oxybutynin chloride 5 mg 5 mg PO QAM 11/11/21 12/17/21 History tablet,extended release 24 hr rosuvastatin 10 mg tablet 10 mg PO QAM 11/11/21 12/17/21 History tramadol 50 mg tablet 50 mg PO Q6H PRN migraine pain 11/11/21 12/17/21 History zinc acetate 50 mg (zinc) capsule 50 mg PO HS 11/11/21 12/17/21 History oxycodone-acetaminophen 5 mg-325 1 tab PO Q6H PRN pain #12 tabs 11/14/21 12/17/21 Rx mg tablet magnesium oxide 500 mg tablet 500 mg PO HS 12/07/21 12/17/21 History ondansetron 4 mg disintegrating 4 mg PO DIRECTED PRN Nausea 12/07/21 12/17/21 History tablet tirzepatide 7.5 mg/0.5 mL 7.5 mg subcut WE 12/07/21 12/17/21 History subcutaneous pen injector (Delmerunmargero) metoclopramide HCl 10 mg tablet 10 mg PO AC 5 days #15 tabs 12/15/21 12/17/21 Rx ertapenem 1 gram solution for 1 g IV DAILY 13 days #13 ea 12/22/21 Rx injection Hospital Stay Data Consultations 12/17/21 20:50 ED Decision to Admit Stat 12/18/21 01:56 Consult General Surgery Routine 12/18/21 08:53 Consult Gastroenterology Routine 12/18/21 16:21 Consult Infectious Diseases Routine Procedures Performed Operation Date: 12/18/21 17:30 Actual Procedures p EGD Biopsy Cytology - Antonio Sexton MD Diagnostic Imagining Performed 12/17/21 18:24 CT abd pelvis IV con only Stat COMPARISON STUDY: CT abdomen and pelvis 12/11/2021, 12/07/2021 FINDINGS: Clear lung bases. No pneumatosis or pneumoperitoneum. Unremarkable spleen. Unchanged punctate calcification of the pancreatic body with otherwise unremarkable appearance of the pancreas. Small bilateral adrenal gland adenomata redemonstrated measuring up to 1.8 cm. Cholecystectomy with complex fluid again noted within the gallbladder fossa measuring up to approximately 2.8 x 2.3 cm, stable from prior. A common bile duct stent appears to be in satisfactory positioning. Intrahepatic pneumobilia confirms stent patency. No choledocholithiasis or significant biliary ductal dilation is identified. The liver is enlarged measuring up to 24 cm in length. Patent portal vein. Unremarkable kidneys without hydronephrosis. There is partial distention of the urinary bladder. Hysterectomy. Aorta and IVC are unremarkable. No lymphadenopathy identified. No bowel obstruction or bowel wall thickening. Mild wall thickening of the distal stomach adjacent to the postoperative fluid collection is unchanged. Mild colonic diverticulosis. The distal appendix measures up to 8 mm in transverse dimension and appears to be noninflamed. Unremarkable soft tissues. Degenerative changes of the spine, pelvis and hips. IMPRESSION: 1. Stable exam from the 12/11/2021 study. 2. Status post cholecystectomy with unchanged small complex fluid collection within the gallbladder fossa measuring less than 3 cm. 3. Unchanged positioning of the common bile duct stent with mild pneumobilia. 4. Mild wall thickening of the distal stomach/proximal duodenum is redemonstrated, likely reactive. 5. Mild hepatomegaly. ACT 112: Negative or not required by law. The above report was generated using voice recognition software. It may contain grammatical, syntax or spelling errors. Electronically signed by: Koby Cantrell M.D. 12/17/2021 7:55 PM Pending Results Patient Have Any Pending Studies at Discharge: Yes Discharge Instructions Given to Patient (Per Discharging Provider) PLEASE REFER TO YOUR NEW MEDICATION LIST AND FOLLOW INSTRUCTIONS CAREFULLY. YOUR NEW MEDICATIONS INCLUDE: Ertapenem-IV antibiotic Please take probiotic daily x6 weeks at least. Drink plenty of fluids eat lots of water per day. If you develop any diarrhea, please call your primary care physician immediately to be tested for C. difficile colitis. PLEASE CALL YOUR PRIMARY CARE PHYSICIAN OR RETURN TO THE ER IF WITH WORSENING OF SYMPTOMS, INCLUDING Abdominal pain, nausea and vomiting, fevers or chills, weakness, bleeding or discharge from surgical sites, Diarrhea, etc. FOLLOW UP WITH PRIMARY CARE PHYSICIAN OUTLINED ABOVE. Total Time Total Time Spent Total Time Spent (In Minutes): >30 minutes
[2021-12-22] MEDS: ERTAPENEM SODIUM 1,000 MG in SYRINGE 0 ML IV SCH (16:18)
[2021-12-22] MEDS: MELOXICAM 7.5 MG TAB PO SCH (16:18)
[2021-12-22] MEDS: cloNIDine HCL 0.1 MG TAB PO SCH (20:13)
[2021-12-23] MEDS: ENOXAPARIN INJ 40 MG/0.4 ML SYR SQ SCH (08:19)
[2021-12-23] MEDS: METOCLOPRAMIDE HCL 10 MG TABLET PO SCH ×2 (08:19→11:52)
[2021-12-23] MEDS: busPIRone 15 MG TAB PO SCH (08:19)
[2021-12-23] MEDS: FERROUS SULFATE 325 MG TAB PO SCH (08:20)
[2021-12-23] MEDS: FLUoxetine HCL 20 MG CAP PO SCH (08:20)
[2021-12-23] MEDS: ADVANCED PROBIOTIC 1250 MG CAPSULE PO SCH (08:21)
[2021-12-23] MEDS: LOSARTAN/HCTZ 50/12.5MG TAB PO SCH (08:21)
[2021-12-23] MEDS: OXYBUTYNIN CHLORIDE XL 5 MG TABCR PO SCH (08:21)
[2021-12-23] MEDS: ROSUVASTATIN CALCIUM 10 MG TAB PO SCH (08:22)
[2021-12-23] MEDS: PANTOprazole 40 MG TAB PO SCH (08:22)
[2021-12-23] MEDS: ERTAPENEM SODIUM 1,000 MG in SYRINGE 0 ML IV SCH (11:52)
--- NOTE | 2021-12-23 18:26 | Hospitalist Progress Note ---
Date of Service December 23, 2021 Assessment & Plan (1) History of biliary duct stent placement: (2) Abdominal pain: (3) Nausea: Plan: Likely secondary to infected gallbladder fossa fluid collection History of cholecystectomy Intra-abdominal abscess Biliary stent placement --Status post EGD: Unrevealing --Afebrile, abdominal pain continues to improve --Urine culture negative -- Given IV Zosyn day #3, patient's symptoms significantly better --Discussed with general surgeon Dr. Duenas, defer to [facility] service--> recommend antibiotic coverage , then repeat CAT scan, if without improvement, possible drainage --Diarrhea resolved Tae ID consulted-recommends 2 weeks of IV ertapenem CBC, CMP weekly while on IV antibiotics Repeat CAT scan of the abdomen pelvis after completion of IV antibiotics --PICC line placed, home health services arranged Probiotics x1 month (4) Diabetes mellitus, type 2: Plan: A.m. blood glucose 97 On weekly Mounjaro (5) Hypertension: Plan: Stable Continue current medical therapy (6) Morbid obesity: Plan: BMI 40.9. Llifestyle changes recommended (7) Anxiety and depression: Plan: Chronic, stable. Continue Prozac 60 mg daily, lorazepam 0.5 mg at HS prn, BuSpar 30 mg QAM (8) DVT prophylaxis: Plan: Lovenox Full Dispo: Discharge to home with home health services, with PICC line for IV ertapenem 1 g daily x2 weeks Admission and Anticipated Discharge Date Admission Date: December 18, 2021 Results & Data Results & Data ([facility]) Vital Signs (Past 12 Hours) Vital Signs Temp Pulse Pulse Pulse Resp BP Pulse Ox 12/23/21 10:55 36.5 C 62 60 64 20 119/70 96 12/23/21 07:22 36.5 C 60 20 119/70 96 O2 Del Method 12/23/21 10:55 12/23/21 07:22 Room Air
== END 2021-12-23 12:11 | disposition home health service (06) | DRG 862 ==
LOC: ED 13:44 → EDINP 13:44 → SUATTDRO 23:34 → 3W 12-18 01:59 → SUATTDRO 12-18 17:10